=== PATIENT | male | born 1940 | race Caucasian/White ===

== ENCOUNTER 2017-09-06 11:33 | Inpatient (IN) | payer BC, MEDICARE ==
[2017-09-06] MEDS ORDERED: NS 0.9% 1000 ML* 1,000 ML IV SCH (12:00)
[2017-09-06 12:08] LABS: ABS Basophils 0 10^3/ul (0-0.2); ABS Eosinophils 0.2 10^3/ul (0-0.6); ABS Lymphocytes 1.2 10^3/ul (1.0-4.8); ABS Monocytes 0.5 10^3/ul (0-0.8); ABS Neutrophils 7.2 10^3/ul (1.5-7.7); ABS Nucleated RBC 0 10^3/ul; Eosinophil % 1.7 % (0-6); Hematocrit 38 % (42-52); Hemoglobin 12.8 g/dl (14.0-18.0); Mean Corpuscular HGB Conc 33 g/dl (31-36); Mean Corpuscular Hemoglobin 31 pg (27-31); Mean Corpuscular Volume 92 fL (80-94); Mean Platelet Volume 8 um3 (7.4-10.4); Nucleated Red Blood Cells % 0.1; Platelet Count 223 10^3/ul (150-450); Red Blood Count 4.17 10^6/ul (4.0-5.4); Red Cell Distribution Width 13 % (10.5-15); White Blood Count 9.1 10^3/ul (3.5-10.8)
[2017-09-06 12:17] LABS: INR 0.94 (0.77-1.02)
[2017-09-06 12:24] LABS: EGFR Non-African American 48.7 (>60)
--- NOTE | 2017-09-06 13:16 | RAD ---
INDICATION: Upper abdominal pain COMPARISON: None TECHNIQUE: An AP seated portable view obtained at 1310 hours is submitted. FINDINGS: Bones/Soft Tissues: There are no acute bony findings. Cardiomediastinal: The cardiomediastinal silhouette is normal. Lungs: There are no infiltrates. Pleura: There are no pleural effusions. Other: None IMPRESSION: NO ACTIVE DISEASE.
--- NOTE | 2017-09-06 13:16 | RAD ---
INDICATION: Upper abdominal pain COMPARISON: None TECHNIQUE: Noncontrast axial source images were obtained from the hemidiaphragms to the symphysis pubis. This examination was ordered using a renal stone protocol which is performed without oral or intravenous contrast and therefore has inherent limitations when used to evaluate other intra-abdominal or intrapelvic pathology. Consider conventional contrast enhanced imaging if clinically indicated. Lung bases: The lung bases are clear. Liver: The liver is normal in size. Noncontrast imaging shows no evidence of a hepatic mass or ductal dilatation. Gallbladder: There are multiple gallstones. Spleen: The spleen is normal in size. The noncontrast CT appearance is normal. Pancreas: Limited evaluation due to the noncontrast nature of the examination. No definitive abnormality. Adrenal glands: No masses are identified. Kidneys/Bladder: Bilateral nephrolithiasis with staghorn calculus in the right. No obstruction. Noncontrast imaging shows no a water density lower pole right renal lesion measuring 3.6 cm and most consistent with a renal cyst. The bladder is unremarkable.. Adenopathy: There is no evidence of intraperitoneal or retroperitoneal adenopathy. Evaluation is limited without oral contrast. Fluid collections: There are no free or localized fluid collections. Vessels: There are atherosclerotic changes of the aorta and iliac vessels. There is no focal aneurysm. The IVC appears normal Pelvic organs: The prostate and seminal vesicles appear normal GI tract: Evaluation of the bowel is limited without oral contrast. There is gastric bypass surgery. The upper GI tract is otherwise unremarkable. There is presumed cholecystectomy with clips in the right lower quadrant. There are scant diverticula of the colon. There are no obstructive findings There are no obstructive findings. The appendix is visualized and appears normal. Soft tissues: Skin induration anteriorly related to the patient's pannus. Osseous structures: Advanced spondylitic change of the thoracolumbar spine. IMPRESSION: 1. This is a limited examination performed without oral or intravenous contrast. 2. Cholelithiasis. 3. Bilateral nonobstructive nephrolithiasis with staghorn calculus on the right 4. Advanced atherosclerotic change. 5. Gastric bypass surgery.
[2017-09-06 13:20] LABS: Urine Appearance Cloudy; Urine Blood 3+ (Negative); Urine Color Amber; Urine Ketones Trace (Negative); Urine Protein 2+(100 mg/dL) (Negative); Urine Specific Gravity 1.019 (1.010-1.030); Urine Urobilinogen Negative (Negative)
[2017-09-06] MEDS ORDERED: Ondansetron INJ* 2 MG/ML VIAL IV PRN (16:17)
[2017-09-06] MEDS ORDERED: Morphine INJ* 4 MG/ML 1 ML SYRINGE (NEW SYRINGE VERSION) ONE (16:31)
[2017-09-06] MEDS: Morphine INJ* 4 MG/ML 1 ML SYRINGE (NEW SYRINGE VERSION) IV PRN ×2 (16:32→20:52)
[2017-09-06] MEDS: cefTRIAXone(*) 1 GM in NS 0.9% 50 ML* 50 ML IVPB SCH (17:52)
[2017-09-06] MEDS: Pantoprazole IV* 40 MG IV SCH (20:52)
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
--- NOTE | 2017-09-06 22:21 | ED ---
Kwasi Alex Stephanie, scribed for Terrance Dos Santos MD on 09/06/17 at 1232 . Abdominal Pain/Male - HPI Summary HPI Summary: The pt is a 77 y/o M presenting to the ED with c/o abd pain that began on at 11:47. The abd pain radiates to the chest, back and neck. Symptoms include black stools. The pt reports hx of gastric bypass in 2007. Pt has been taking hydrocodone for pain. The pt reports he has a BM every 3 days. - History of Current Complaint Chief Complaint: EDAbdPain Stated Complaint: ABD PAIN Time Seen by Provider: 09/06/17 11:40 Hx Obtained From: Patient, Family/Resident Care Coordinator - Onset/Duration: Gradual Onset, Lasting Weeks - 2, Still Present Timing: Constant Severity Currently: Severe Pain Intensity: 10 Pain Scale Used: 0-10 Numeric Location: Diffuse Radiates: Yes Radiates to: Back, Chest, Other - neck Aggravating Factor(s): Nothing Alleviating Factor(s): Nothing Associated Signs And Symptoms: Positive: Back Pain, Other - black stools - Allergies/Home Medications Allergies/Adverse Reactions: Allergies Allergy/AdvReac Type Severity Reaction Status Date / Time No Known Allergies Allergy Verified 09/06/17 11:51 Home Medications: Home Medications Aspirin EC Low Dose* [Ecotrin EC Low Dose 81 MG*] 81 mg PO DAILY 09/06/17 [ History Confirmed 09/06/17] Atorvastatin* [Lipitor*] 80 mg PO DAILY 09/06/17 [History Confirmed 09/06/17] Furosemide TAB* [Lasix TAB*] 20 mg PO DAILY PRN 09/06/17 [History Confirmed 10/21] Hydrocodone/Acetamin 10/325(NF [[place] 10/325 (NF)] 1 - 2 tab PO Q4H PRN MDD 4 tabs 09/06/17 [History Confirmed 09/06/17] Ibuprofen TAB* [Motrin TAB* 400 MG] 400 mg PO Q6H PRN 09/06/17 [History Confirmed 09/06/17] Pedi Multivit No.25/Folic Acid [Flintstones Complete] 1 chw PO DAILY 09/06/17 [ History Confirmed 09/06/17] Zolpidem TAB* [Ambien TAB*] 5 mg PO BEDTIME PRN 09/06/17 [History Confirmed 10/21] PMH/Surg Hx/FS Hx/Imm Hx Cardiovascular History: Denies: Hx Congestive Heart Failure EENT History: Denies: Hx Deafness - Surgical History Surgery Procedure, Year, and Place: gastric bypass in 2007 Infectious Disease History: No Infectious Disease History: Denies: Traveled Outside the [place] in Last 30 Days - Family History Known Family History: Positive: Diabetes - Social History Occupation: Retired Lives: With Family Alcohol Use: Rare Substance Use Type: Reports: None Smoking Status (MU): Unknown if Ever Smoked Review of Systems Negative: Fever Positive: Chest Pain Positive: Abdominal Pain Positive: other - black stool Positive: Other - back pain, neck pain All Other Systems Reviewed And Are Negative: Yes Physical Exam - Summary Physical Exam Summary: General: Moderately ill-appearing, mild pain distress Skin: warm, color reflects adequate perfusion, dry Head: normal Eyes: EOMI, MALAIKA ENT: normal Neck: supple, nontender Respiratory: CTA, breath sounds present Cardiovascular: RRR Abdomen: abdomen diffusely tender; worst tenderness in epigastrium Bowel: present, hyperactive bowel sounds Musculoskeletal: normal, strength/ROM intact Neurological: normal, sensory/motor intact, A&O x3 Psychological: affect/mood appropriate Rectal Exam: normal Triage Information Reviewed: Yes Vital Signs On Initial Exam: Initial Vitals Temp Pulse Resp BP Pulse Ox 98.6 F 70 23 139/58 97 09/06/17 11:47 09/06/17 11:47 09/06/17 11:47 09/06/17 11:47 09/06/17 11:47 Vital Signs Reviewed: Yes Diagnostics - Vital Signs Vital Signs Temp Pulse Resp BP Pulse Ox 09/06/17 12:01 66 24 139/60 95 09/06/17 12:00 63 27 95 09/06/17 11:48 73 96 09/06/17 11:47 98.6 F 70 23 139/58 97 - Laboratory Lab Results: Lab Results 09/06/17 09/06/17 09/06/17 Range/Units 12:00 12:00 12:00 WBC (3.5-10.8) 10^3/ul RBC (4.0-5.4) 10^6/ul Hgb (14.0-18.0) g/dl Hct (42-52) % MCV (80-94) fL MCH (27-31) pg MCHC (31-36) g/dl RDW (10.5-15) % Plt Count (150-450) 10^3/ul MPV (7.4-10.4) um3 Neut % (Auto) (38-83) % Lymph % (Auto) (25-47) % Gregg % (Auto) (0-7) % Eos % (Auto) (0-6) % Baso % (Auto) (0-2) % Absolute Neuts (auto) (1.5-7.7) 10^3/ul Absolute Lymphs (auto) (1.0-4.8) 10^3/ul Absolute Monos (auto) (0-0.8) 10^3/ul Absolute Eos (auto) (0-0.6) 10^3/ul Absolute Basos (auto) (0-0.2) 10^3/ul Absolute Nucleated RBC 10^3/ul Nucleated RBC % INR (Anticoag Therapy) 0.94 (0.77-1.02) APTT 40.8 H (26.0-36.3) seconds Sodium (133-145) mmol/L Potassium (3.5-5.0) mmol/L Chloride (101-111) mmol/L Carbon Dioxide (22-32) mmol/L Anion Gap (2-11) mmol/L BUN (6-24) mg/dL Creatinine (0.67-1.17) mg/dL Est GFR ( Amer) (>60) Est GFR (Non-Af Amer) (>60) BUN/Creatinine Ratio (8-20) Glucose (70-100) mg/dL Lactic Acid (0.5-2.0) mmol/L Calcium (8.6-10.3) mg/dL Magnesium (1.9-2.7) mg/dL Total Bilirubin (0.2-1.0) mg/dL AST (13-39) U/L ALT (7-52) U/L Alkaline Phosphatase (34-104) U/L Total Creatine Kinase (10-223) U/L CK-MB (CK-2) (0.6-6.3) ng/mL C-Reactive Protein (< 5.00) mg/L B-Natriuretic Peptide 58 ( - 100) pg/mL Total Protein (6.4-8.9) g/dL Albumin (3.2-5.2) g/dL Globulin (2-4) g/dL Albumin/Globulin Ratio (1-3) Lipase (11.0-82.0) U/L Blood Type O Positive Antibody Screen Pending 09/06/17 09/06/17 09/06/17 Range/Units 12:00 12:00 12:00 WBC 9.1 (3.5-10.8) 10^3/ul RBC 4.17 (4.0-5.4) 10^6/ul Hgb 12.8 L (14.0-18.0) g/dl Hct 38 L (42-52) % MCV 92 (80-94) fL MCH 31 (27-31) pg MCHC 33 (31-36) g/dl RDW 13 (10.5-15) % Plt Count 223 (150-450) 10^3/ul MPV 8 (7.4-10.4) um3 Neut % (Auto) 79.4 (38-83) % Lymph % (Auto) 13.0 L (25-47) % Gregg % (Auto) 5.5 (0-7) % Eos % (Auto) 1.7 (0-6) % Baso % (Auto) 0.4 (0-2) % Absolute Neuts (auto) 7.2 (1.5-7.7) 10^3/ul Absolute Lymphs (auto) 1.2 (1.0-4.8) 10^3/ul Absolute Monos (auto) 0.5 (0-0.8) 10^3/ul Absolute Eos (auto) 0.2 (0-0.6) 10^3/ul Absolute Basos (auto) 0 (0-0.2) 10^3/ul Absolute Nucleated RBC 0 10^3/ul Nucleated RBC % 0.1 INR (Anticoag Therapy) (0.77-1.02) APTT (26.0-36.3) seconds Sodium 137 (133-145) mmol/L Potassium 4.1 (3.5-5.0) mmol/L Chloride 108 (101-111) mmol/L Carbon Dioxide 16 L (22-32) mmol/L Anion Gap 13 H (2-11) mmol/L BUN 47 H (6-24) mg/dL Creatinine 1.41 H (0.67-1.17) mg/dL Est GFR ( Amer) 62.7 (>60) Est GFR (Non-Af Amer) 48.7 (>60) BUN/Creatinine Ratio 33.3 H (8-20) Glucose 122 H (70-100) mg/dL Lactic Acid 0.7 (0.5-2.0) mmol/L Calcium 9.6 (8.6-10.3) mg/dL Magnesium 1.8 L (1.9-2.7) mg/dL Total Bilirubin 0.30 (0.2-1.0) mg/dL AST 13 (13-39) U/L ALT 10 (7-52) U/L Alkaline Phosphatase 66 (34-104) U/L Total Creatine Kinase 26 (10-223) U/L CK-MB (CK-2) 2.1 (0.6-6.3) ng/mL C-Reactive Protein 33.32 H (< 5.00) mg/L B-Natriuretic Peptide ( - 100) pg/mL Total Protein 7.0 (6.4-8.9) g/dL Albumin 3.5 (3.2-5.2) g/dL Globulin 3.5 (2-4) g/dL Albumin/Globulin Ratio 1.0 (1-3) Lipase 138 H (11.0-82.0) U/L Blood Type Antibody Screen Result Diagrams: 09/06/17 12:00 09/06/17 12:00 Lab Statement: Any lab studies that have been ordered have been reviewed, and results considered in the medical decision making process. - Radiology CXR Xray Interpretation: No Acute Changes Radiology Interpretation Completed By: Radiologist - NO ACTIVE DISEASE. - CT Abdomen/Pelvis CT Interpretation: Positive (See Comments) CT Interpretation Completed By: Radiologist - 1. This is a limited examination performed without oral or intravenous contrast. 2. Cholelithiasis. 3. Bilateral nonobstructive nephrolithiasis with staghorn calculus on the right 4. Advanced atherosclerotic change. 5. Gastric bypass surgery. - EKG 12:12 Cardiac Rate: NL EKG Rhythm: Sinus Rhythm - [address] Segment: Normal Ectopy: None EKG Interpretation: Normal EKG Abdominal Pain Fem Course/Dx - Course Course Of Treatment: BP noted and advised to follow up with PCP. Medications reviewed. Allergies noted. DISCUSSED RESULTS WITH PATIENT AND FAMILY. ADMIT HOSPITALIST. - Diagnoses Provider Diagnoses: Elevated BP without diagnosis of hypertension, Upper abdominal pain, GI bleed Discharge - Discharge Plan Condition: Stable Disposition: ADMITTED TO [facility] documentation as recorded by the Kwasi barfield Stephanie accurately reflects the service I personally performed and the decisions made by me, Terrance Dos Santos MD.
[2017-09-07] MEDS: Morphine INJ* 4 MG/ML 1 ML SYRINGE (NEW SYRINGE VERSION) IV PRN (03:55)
[2017-09-07 05:21] LABS: ABS Basophils 0 10^3/ul (0-0.2); ABS Eosinophils 0.2 10^3/ul (0-0.6); ABS Lymphocytes 1.5 10^3/ul (1.0-4.8); ABS Monocytes 0.7 10^3/ul (0-0.8); ABS Nucleated RBC 0 10^3/ul; Eosinophil % 2.7 % (0-6); Hematocrit 32 % (42-52); Hemoglobin 10.8 g/dl (14.0-18.0); Lymphocyte % 20.5 % (25-47); Mean Corpuscular HGB Conc 34 g/dl (31-36); Mean Corpuscular Hemoglobin 31 pg (27-31); Mean Corpuscular Volume 92 fL (80-94); Mean Platelet Volume 9 um3 (7.4-10.4); Nucleated Red Blood Cells % 0; Platelet Count 182 10^3/ul (150-450); Red Cell Distribution Width 14 % (10.5-15); White Blood Count 7.5 10^3/ul (3.5-10.8)
[2017-09-07 05:37] LABS: EGFR Non-African American 65.6 (>60)
[2017-09-07] MEDS: Atorvastatin* 80 MG TAB PO SCH (09:19)
[2017-09-07] MEDS: Pantoprazole IV* 40 MG IV SCH ×2 (09:43→20:14)
--- NOTE | 2017-09-07 10:05 | CONS ---
CC: Dr. Shira Becerril* CONSULTATION REPORT: DATE OF CONSULT: 09/07/17. REQUESTING PHYSICIAN: Michaela Mckee NP. INDICATION: Heme-positive stool, anemia. NARRATIVE: Mr. Lim is a pleasant 77-year-old gentleman who has a history of gastric bypass in 2008, recent CVA in 2016, with some right-sided weakness, hyperlipidemia, who comes in with abdominal pain. He is a somewhat poor historian. The pain is better this morning. He states that it was located periumbilically, really with no radiation. He has been treating it with ibuprofen. He also takes aspirin every day. He denies any vomiting, but he does have some slight nausea. No heartburn. He states that her stools were black a couple of days ago. He also noted dark urine a couple of days ago. However, this morning he is feeling hungry and is feeling better this morning. He was found to have a urinary tract infection and is being treated for that. MEDICATIONS UPON ADMISSION: Include: 1. Aspirin. 2. Lasix. 3. Hydrocodone. 4. Ibuprofen. 5. Zolpidem. 6. Atorvastatin. ALLERGIES: None. FAMILY HISTORY: No GI malignancies in the family. SOCIAL HISTORY: He quit tobacco. Rarely drinks alcohol. REVIEW OF SYSTEMS: Twelve systems were reviewed and other than that mentioned in the HPI were unremarkable. PHYSICAL EXAM: Vital Signs: Temperature is 98.2, blood pressure is 130/51, pulse is 60, respiratory rate of 23, O2 sat at 95%. General: Chronically ill- appearing male, lying flat in bed, alert, oriented, pleasant, and fluent, easily awoken. HEENT: Dentition poor. Mucous membranes are moist without lesions, ulcers, or exudate. Neck: Supple. Trachea is midline. Heart: Regular rate and rhythm. Lungs: Clear to auscultation. Abdomen: Obese, positive bowel sounds. Soft, tender in the epigastrium. No rebound, no guarding , no masses. Skin: Warm and dry. LABORATORY DATA: Of note, his hemoglobin has gone from 12.8 to 10.8, white count is 7.5, platelets of 182, INR is 0.94. Chemistries reveal BUN from 47 down to 31. Creatinine is 1.41 down to 1.09. C-reactive protein is 33, lipase is 138 down to 89. He does have a CT abdomen and pelvis from yesterday in the emergency room which was a non-contrasted CT; reveals cholelithiasis, nephrolithiasis with a staghorn calculus in the right kidney, gastric bypass. ASSESSMENT AND PLAN: This is a pleasant 77-year-old gentleman with epigastric pain, heme-positive stool, dark stool noted a few days ago, elevated BUN and takes both aspirin and ibuprofen. I agree that an EGD will be useful. We will make arrangements for his endoscopy later on today. He should remain on a PPI. [id number]/[facility] #: [id number] MTDD
--- NOTE | 2017-09-07 13:12 | PN ---
Subjective Date of Service: 09/07/17 Interval History: Mr. Lim states that he is feeling much better today. He denies abdominal pain. He has had no BM since admission. His urine is no longer brown or bloody but is now clear yellow. Objective Active Medications: Atorvastatin Calcium (Lipitor*) 80 mg PO DAILY [facility] Lactated Ringer's (Lactated Ringers 1000 Ml Bag*) 1,000 mls @ 125 mls/hr IV PER RATE JAIR Ceftriaxone Sodium 1 gm/ (Sodium Chloride) 50 mls @ 200 mls/hr IVPB Q24H JAIR Morphine Sulfate (Morphine Inj (Syringe)*) 4 mg IV Q4H PRN Ondansetron HCl (Zofran Inj*) 4 mg IV Q6H PRN Pantoprazole Sodium (Protonix Iv*) 40 mg IV BID JAIR Vital Signs: Temp Pulse Resp BP Pulse Ox 97.3 F 51 16 128/47 97 09/07/17 11:36 09/07/17 11:36 09/07/17 11:36 09/07/17 11:36 09/07/17 11:36 Oxygen Devices in Use Now: None Appearance: Male sitting up in chair in NAD Eyes: No Scleral Icterus Ears/Nose/Mouth/Throat: Mucous Membranes Moist Neck: NL Appearance and Movements; NL JVP, Trachea Midline Respiratory: Symmetrical Chest Expansion and Respiratory Effort, Clear to Auscultation Cardiovascular: NL Sounds; No Murmurs; No JVD, No Edema Abdominal: NL Sounds; No Tenderness; No Distention Lymphatic: No Cervical Adenopathy Extremities: No Edema Skin: No Rash or Ulcers Neurological: Alert and Oriented x 3, NL Muscle Strength and Tone Nutrition: Taking PO's Result Diagrams: 09/07/17 04:51 09/07/17 04:51 Additional Lab and Data: . Assess/Plan/Problems-Billing Assessment: Mr. Lim is a 77 yo M with a PMH of gastric bypass 10 years ago who was admitted on 09/06/17 with suspected upper GI bleed, elevated lipase, and UTI with reported passage of kidney stone at home. - Patient Problems (1) Upper GI bleed Comment: - Hgb down to 10 this AM. GUIAC positive. - EGD with large gastric ulcer at bypass anastomosis. - Plan for protonix BID. (2) UTI (urinary tract infection) Comment: - Report of hematuria and passage of kidney stone at home. - Large staghorn calculus in R kidney, no hydronephrosis on CT abd. - Continue ceftriaxone. (3) Elevated lipase Comment: - Lipase falling, 113 on arrival. - No clear evidence of pancreatitis, abd exam variable, pain not associated with oral intake. CT abd without evidence of pancreatitis. - Appreciate GI consult, plan for clear liquids and pain medications prn. (4) DVT prophylaxis Comment: - SCDs. (5) Full code status Comment: Status and Disposition: Inpatient. Anticipate discharge to home when medically stable.
[2017-09-07] MEDS ORDERED: fentaNYL* 50 MCG/ML 2 ML VIAL (100 MCG VIAL) ONE (14:50)
[2017-09-07] MEDS ORDERED: Midazolam* 1 MG/ML 10 ML VIAL (10 MG) ONE (14:50)
[2017-09-07] MEDS: cefTRIAXone(*) 1 GM in NS 0.9% 50 ML* 50 ML IVPB SCH (16:19)
[2017-09-08] MEDS: Morphine INJ* 4 MG/ML 1 ML SYRINGE (NEW SYRINGE VERSION) IV PRN (05:51)
[2017-09-08 08:03] VITALS: BP 149/49
[2017-09-08] MEDS: Atorvastatin* 80 MG TAB PO SCH (09:18)
[2017-09-08] MEDS: Pantoprazole IV* 40 MG IV SCH (09:18)
--- NOTE | 2017-09-08 10:04 | PN ---
Subjective Date of Service: 09/08/17 Interval History: Mr. Lim states that he is doing quite well and is eager for discharge. He denies abdominal pain and is tolerating oral intake well. Objective Active Medications: Atorvastatin Calcium (Lipitor*) 80 mg PO DAILY [facility] Lactated Ringer's (Lactated Ringers 1000 Ml Bag*) 1,000 mls @ 125 mls/hr IV PER RATE [facility] Ceftriaxone Sodium 1 gm/ (Sodium Chloride) 50 mls @ 200 mls/hr IVPB Q24H JAIR Morphine Sulfate (Morphine Inj (Syringe)*) 4 mg IV Q4H PRN Ondansetron HCl (Zofran Inj*) 4 mg IV Q6H PRN Pantoprazole Sodium (Protonix Iv*) 40 mg IV BID [facility] Vital Signs: Temp Pulse Resp BP Pulse Ox 98.3 F 51 18 149/49 97 09/08/17 07:23 09/08/17 07:23 09/08/17 08:00 09/08/17 07:23 09/08/17 07:23 Oxygen Devices in Use Now: None Appearance: Male sitting up in bed in NAD Eyes: No Scleral Icterus Ears/Nose/Mouth/Throat: Mucous Membranes Moist Neck: Trachea Midline Respiratory: Symmetrical Chest Expansion and Respiratory Effort, Clear to Auscultation Cardiovascular: NL Sounds; No Murmurs; No JVD, No Edema Abdominal: NL Sounds; No Tenderness; No Distention Lymphatic: No Cervical Adenopathy Extremities: No Edema Skin: No Rash or Ulcers Neurological: Alert and Oriented x 3, NL Muscle Strength and Tone Nutrition: Taking PO's Result Diagrams: 09/07/17 04:51 09/07/17 04:51 Additional Lab and Data: . Microbiology and Other Data: . Assess/Plan/Problems-Billing Assessment: Mr. Lim is a 77 yo M with a PMH of gastric bypass 10 years ago who was admitted on 09/06/17 with suspected upper GI bleed, elevated lipase, and UTI with reported passage of kidney stone at home. - Patient Problems (1) Upper GI bleed Comment: - Hgb stable. - EGD with large gastric ulcer at bypass anastomosis. - Plan for omeprazole BID. - Patient advised to avoid NSAIDs. - To Follow up outpatient with GI in 6 weeks. (2) UTI (urinary tract infection) Comment: - Urine with aerococcus species. - Plan to treat with amoxicillin (3) Elevated lipase Comment: - Resolved. (4) DVT prophylaxis Comment: - SCDs. (5) Full code status Comment: Status and Disposition: Inpatient. Discharge to home.
--- NOTE | 2017-09-08 15:00 | PRO ---
DATE OF PROCEDURE: 09/07/2017 - ROOM #[id number] PROCEDURE PERFORMED: EGD. INDICATION: Abdominal pain, anemia. REFERRING PHYSICIAN: Michaela Mckee NP. MEDICATIONS GIVEN: 25 mcg IV Fentanyl and 3 mg IV Versed. PROCEDURE: After the EGD procedure, including the risks, benefits, and alternatives, not limited to perforation, surgery and/or were explained to Mr. Lim, written consent was then obtained. IV medication was given and a bite- block was placed between the teeth. An Olympus gastroscope was then inserted into the patient's mouth, advanced down the esophagus, into the stomach and into the distal duodenum. In the esophagus at the GE junction, the Z-line was intact. No erosive esophagitis, stricture, or ring was seen. The scope was advanced into the gastric pouch. He does have a history of gastric bypass surgery. The pouch was very pale. The scope was advanced through the gastrojejunal junction into the jejunum site. There was an extremely large cleaned based ulcer there. I did not try and advance by it due to its large size. I then withdrew the scope into the gastric pouch where biopsy was for NEAL. The scope was withdrawn from the patient. He tolerated the procedure well and was returned to his hospital room in stable condition. IMPRESSION: 1. Complete upper endoscopy into the jejunum with biopsies. 2. Gastrojejunal ulcer. 3. His ulcer is likely secondary to his nonsteroidals. He needs to stop all of them, use a PPI, and follow-up with me as needed. [id number]/[facility] #: [id number] DAMIÁN
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
== END 2017-09-08 11:05 | disposition home or self-care (01) | DRG 381 ==
LOC: ED 11:33 → SSU 16:07
PROVIDERS: ADMIT Internal Medicine; ATTEND Internal Medicine
PROC: 0DB68ZX Excision of Stomach, Via Natural or Artificial Opening Endoscopic, Diagnostic (ICD-10-PCS; principal; 2017-09-07)
DX: K28.3 Acute gastrojejunal ulcer without hemorrhage or perforation (principal); N39.0 Urinary tract infection, site not specified; N17.9 Acute kidney failure, unspecified; E87.2 Acidosis; I69.351 Hemiplegia and hemiparesis following cerebral infarction affecting right dominant side; E86.0 Dehydration; B96.89 Other specified bacterial agents as the cause of diseases classified elsewhere; E78.5 Hyperlipidemia, unspecified; N20.0 Calculus of kidney; I69.322 Dysarthria following cerebral infarction; Z98.84 Bariatric surgery status; Z79.1 Long term (current) use of non-steroidal anti-inflammatories (NSAID); Z87.891 Personal history of nicotine dependence; Z79.82 Long term (current) use of aspirin; Z79.899 Other long term (current) drug therapy
CPT/HCPCS: 36415; 71045; 74176; 80053; 80320; 80329; 81003; 81015; 82140; 82270; 82550; 82553; 82607; 82728; 82746; 83540; 83550; 83605; 83690; 83735; 83880; 85025; 85610; 85730; 86140; 86850; 86900; 86901; 87040; 87077; 87086; 93005; 99156; 99157; 99284; A9270-GY; G0480; J0696; J2250; J2270; J3010

== ENCOUNTER 2018-06-30 12:51 | Emergency (ER) | payer MEDICARE ==
--- OUTSIDE RECORDS SUMMARY | 2018-06-30 13:12 | XMS REPORT | Continuity of Care Document ---
:1940 External Reference #:[id number] Author Name Shira Becerril M.D. Address [address] [facility] [address] [place] [address] Care Team Providers Name Role Phone Shira Becerril MD Care Team Information Community Advocate Unavailable Payers Type Date Identification Numbers Payment Provider Subscriber Effective: Policy Number: [id number] /BS Medicare Blue Zach Joseph 2017 Ppo PayID: [id number] [address] [address] [place] [address] Advance Directives Description No Information Available Problems Date Description Provider Status Onset: 05/14/2015 Type II diabetes mellitus uncontrolled Shira Becerril M.D. Active Onset: 05/14/2015 Asthma without status asthmaticus Shira Becerril M.D. Active Onset: 05/14/2015 Allergic rhinitis Shira Becerril M.D. Active Onset: 05/14/2015 Atopic dermatitis Shira Becerril M.D. Active Onset: 05/14/2015 Morbid obesity Shira Becerril M.D. Active Onset: 05/14/2015 Bariatric operative procedure Shira Becerril M.D. Active Onset: 05/14/2015 Knee pain Shira Becerril M.D. Active Onset: 05/14/2015 Pain in limb Shira Becerril M.D. Active Onset: 05/14/2015 Osteoarthritis Shira Becerril M.D. Active Onset: 05/14/2015 Abnormal gait Shira Becerril M.D. Active Onset: 05/14/2015 Constipation Shira Becerril M.D. Active Onset: 05/14/2015 Insomnia Shira Becerril M.D. Active Onset: 05/14/2015 Hearing loss Shira Becerril M.D. Active Onset: 08/07/2015 Abnormal gait Shira Becerril M.D. Active Family History Date Family Member(s) Problem(s) Comments Father due to Age Unknown () - PASSED IN 1943 Father due to Diabetes () Mother due to Auto Accident () - 1958- AGE UNKNOWN First Son 39 First Son No Current Problems First Daughter 49 First Daughter No Current Problems Second Daughter 43 Second Daughter No Current Problems First Brother due to 6 Passed () - ONE SUICIDE, ONE LIVER DISEASE, ONE FROM DIABETES, SISTER OLD AGE, AND ANOTHER LUNG CANCER, ANOTHER DIABETES Second Brother 77 Second Brother Unknown First Sister due to Natural Causes () Social History Type Date Description Comments Sex Unknown Marital Status Legal Status: Tobacco Use Start: Unknown Light tobacco smoker (10 or fewer cig/day) Smoking Status Reviewed: 05/24/18 Light tobacco smoker (10 or fewer cig/day) Tobacco Use Start: Unknown Current Smokeless Tobacco User, Uses Once Daily ETOH Use Rarely consumes alcohol Tobacco Use Start: Unknown Patient is a current 5 OR 6 CIGARS A DAY, NO smoker, smokes every day CIGARETTES Allergies, Adverse Reactions, Alerts Date Description Reaction Status Severity Comments 05/14/2015 Adhesives Active Medications Medication Date Status Form Strength Qnty SIG Indications Ordering Provider Hydrocodone-Ac 03/25/20 Active Tablets 10-325mg 60tabs 1 tab by G81.91 Jone etaminophen 18 mouth Modestomagraham MVinicius, twice a M.D. day as needed M79.606 M25.569 Acetaminophen 02/24/2018 Active Tablets 500mg 180tabs 2 tab by M15.9 Jone, mouth three Ahmad M., times a day M.D. Omeprazole 09/22/[address] 20mg 180caps Take 1 K25.7 Jone, Capsule By Shira Rodriguez, Mouth Twice M.D. Daily Nebulizer 08/19/2017 Active Device 1units use as R06.02 Jone, directed Shira Rodriguez M.D. J45.909 Nebulizer 08/19/2017 Active Kit 3units use with R06.02 Jone, Kit/Tubing/Mouthpiece nebulizer Ahmad M., every 4 hours M.D. as needed J45.909 Ambien 08/19/2017 Active Tablets 5mg 30tabs 1 tab by mouth E11.65 Jone , Ahmad every night MJasper Colvin Back Brace 05/22/2017 Active use as directed G81.91 Jone Ahmad for back pain Jasper Rodriguez m54,5,g81.91,m15 .9 M15.9 M54.5 Furosemide 01/25/2016 Active Tablets 20mg 90tabs 1 tab by R60.0 Jone, mouth every Ahmad M., day as M.D. needed Albuterol 12/28/2015 Active Nebulizer (2.5mg/ 375ml use with J45.909 Jone, Sulfate 3ML) nebulizer q4 Ahmad M., 0.083% hours as M.D. needed for cough/sob R06.02 Walker With 10/04/2015 Active 1units dx: G81.91 Jone, Large Wheels r26.89,g81.91 Ahmad M., With Seat And M.D. Basket Atorvastatin 08/17/2015 Active Tablets 80mg 90tabs 1 tab by mouth I63.9 Jone, Calcium every day Shira Rodriguez M.D. E78.2 Miralax 05/14/2015 Active Powder 3350NF 1020gm 2 caps by K59.00 Jone, mouth Ahmad M., every day M.D. as needed Proventil HFA 05/14/2015 Active Aerosol 108(90Base) 13.4gm 2 unit by R06.02 Jone, mcg/Act mouth Ahmad M., every 4 M.D. hours as needed J45.909 Daily-James/Iron/Beta-Carotene Active Tablets Z98.84 Unknown Cipro 06/08/2018 - Hx Tablets 50 20 1 tab by E11.65 Jone, 06/18/2018 0m ta mouth Ahmad g bs twice a M., MViniciusD. day Cipro 05/25/2018 - Hx Tablets 50 14 1 tab by N39.0 [facility], 05/31/2018 0m ta mouth Ahmad g bs twice a M., M.D. day Hydrocodone-Acetaminophen 02/24/2018 - Hx Tablets 5- 60 1 tab by M15.9 [facility], 03/25/2018 32 ta mouth Ahmad 5m bs three M., M.D. g times a day as Needed 2 Hours After Tylenol Max Tylenol ALL Sources No More Than 4 G M79.606 M25.569 Cipro 05/07/2017 - Hx Tablets 500mg 20tabs 1 tab by E11.65 [facility], 05/17/2017 mouth Ahmad M., twice a M.D. day Trazodone HCL 01/16/2017 - Hx Tablets 100mg 90tabs 1 tab by E11.65 [facility], 08/19/2017 mouth Ahmad M., every M.D. night Hydroxyzine HCL 01/02/2017 - Hx Tablets 10mg 30tabs 1 tab by L50.9 [facility], 05/06/2017 mouth Ahmad M., every M.D. night as needed Hydrocodone-Acet 12/19/2016 - Hx Tablets 10-325mg 60tabs 1-2 tab by M15.9 [facility], aminophen 02/24/2018 mouth Ahmad M., every 4 M.D. hours as needed M79.606 M25.569 Temazepam 12/19/2016 - Hx Capsules 15mg 14caps 1 cap by E11.65 [facility], 12/19/2016 mouth Ahmad M., every M.D. night Ativan 12/19/2016 - Hx Tablets 1mg 15tabs 1 tab by G47.00 [facility], 01/16/2017 mouth Ahmad M., every M.D. night as needed Cholestyramine 11/20/2016 - Hx Powder 4GM/Dose 378gm 1 scoop by K58.0 [facility], 05/06/2017 mouth Ahmad M., every day M.D. as needed Amoxicillin 09/19/2016 - Hx Tablets 500mg 40tabs 2 by mouth D48.5 [facility] , 09/29/2016 twice a Ahmad M., day M.D. Ativan 09/27/2015 - Hx Tablets 1mg 30tabs 1 tab by E11.65 Jone, 12/19/2016 mouth Shira Montalvo., every M.D. night as needed Mucinex 09/27/2015 - Hx Tablets ER 600mg 60tabs 1 tab by R09.81 Jone, 05/06/2017 12HR mouth Shira M., twice a M.D. day as needed Ambien 09/04/2015 - Hx Tablets 10mg 30tabs 1 tab by G47.00 Jone, 09/27/2015 mouth Modestomad M., every M.D. night as needed Ramipril 08/17/2015 - Hx Capsules 2.5mg 90caps 1 by mouth E11.65 Jone, 05/06/2017 every day Shira Rodriguez M.D. I63.9 I10 No Active 05/14/2015 - Hx Unknown Medications 05/14/2015 Hydrocodone-Aceta 05/14/2015 - Hx Tablets 7.5-3 120ta 1-2 tab by R10.8 Shira Becerril minophen 12/19/2016 25mg bs mouth every 4 M., M.D. 4 hours as needed Cephalexin - Hx Capsules 500mg Unknown 05/06/2015 Cephalexin - Hx Capsules 500mg Unknown 05/06/2015 Ramipril - Hx Capsules 2.5mg Unknown 05/06/2015 Ramipril - Hx Capsules 2.5mg Unknown 05/06/2015 Albuterol Sulfate - Hx Nebulizer (2.5m Unknown 05/06/2015 g/3ML ) 0.083 % Albuterol Sulfate - Hx Nebulizer (2.5m Unknown 05/06/2015 g/3ML ) 0.083 % Aspirin Ec Low - Hx Tablets DR 81mg I63.9 Unknown Dose 09/22/2017 E11.65 G81.91 Atorvastatin - Hx Tablets 80mg Unknown Calcium 08/17/2015 Nortriptyline HCL - Hx Capsules 10mg 30caps 1 cap by M79.6 Shira Becerril 07/06/2016 mouth David Rodriguez M.D. every day M15.9 Q-Pap - 07/06/2016 Hx Tablets 325mg E11.65 Unknown I63.9 E78.2 Hydrocodone-Acetaminophen - Hx Tablets 7.5-325mg Unknown 08/06/2015 Polyethylene Glycol 3350 - Hx Powder 3350NF I63.9 Unknown 07/06/2016 K59.00 Proair HFA - Hx Aerosol 108(90Base) Unknown 08/06/2015 mcg/Act Cephalexin - Hx Capsules 500mg Unknown 08/06/2015 Ramipril - Hx Capsules 2.5mg Unknown 08/17/2015 Albuterol Sulfate - Hx Nebulizer (2.5mg/3ML) 0.083% J45.909 Unknown 12/28/2015 R06.02 D48.5 Medications Administered in Office Medication Date Status Form Strength Qnty SIG Indications Ordering Provider Admin Of Administered Injection Jone, Pneumovax 015 Shira Rodriguez M.D. Immunizations CPT Code Status Date Vaccine Reaction Lot # Q2038 Given 04/22/2018 Flu Vaccine 3+Yrs Old(Fluzone) \\ [id number] Q2038 Given 02/26/2017 Flu Vaccine 3+Yrs Old(Fluzone) [id number] Q2038 Given 03/25/2016 Flu Vaccine 3+Yrs Old(Fluzone) 92220 Given 03/25/2016 Flu Vaccine [id number] Q2038 Given 05/14/2015 Flu Vaccine 3+Yrs Old(Fluzone) 88453 Given 05/14/2015 Pneumovax [id number] 40466 Given 05/14/2015 Flu Vaccine [id number] Vital Signs Date Vital Result Comment 06/24/2018 1:04pm BP Systolic 126 mmHg BP Diastolic 70 mmHg Height 64 inches 5'4" Weight 221.00 lb BMI (Body Mass Index) 37.9 kg/m2 Heart Rate 59 /min Respiratory Rate 16 /min 05/25/2018 1:36pm BP Systolic 130 mmHg BP Diastolic 72 mmHg Height 64 inches 5'4" Weight 220.00 lb BMI (Body Mass Index) 37.8 kg/m2 Heart Rate 67 /min Respiratory Rate 14 /min 04/22/2018 1:03pm BP Systolic 142 mmHg BP Diastolic 74 mmHg Height 64 inches 5'4" Weight 216.00 lb BMI (Body Mass Index) 37.1 kg/m2 Heart Rate 65 /min Respiratory Rate 14 /min 03/25/2018 12:52pm BP Systolic 142 mmHg BP Diastolic 70 mmHg Height 64 inches 5'4" Weight 221.00 lb BMI (Body Mass Index) 37.9 kg/m2 Heart Rate 58 /min Respiratory Rate 16 /min 02/24/2018 1:32pm BP Systolic 120 mmHg BP Diastolic 80 mmHg Height 64 inches 5'4" Weight 244.00 lb BMI (Body Mass Index) 41.9 kg/m2 Heart Rate 58 /min Respiratory Rate 14 /min 01/25/2018 11:17am BP Systolic 132 mmHg BP Diastolic 70 mmHg Height 64 inches 5'4" Weight 227.00 lb BMI (Body Mass Index) 39.0 kg/m2 Heart Rate 54 /min Respiratory Rate 14 /min 12/24/2017 1:57pm BP Systolic 124 mmHg BP Diastolic 68 mmHg Height 64 inches 5'4" Weight 217.00 lb BMI (Body Mass Index) 37.2 kg/m2 Heart Rate 67 /min Respiratory Rate 16 /min 11/26/2017 12:58pm BP Systolic 132 mmHg BP Diastolic 60 mmHg Height 64 inches 5'4" Weight 224.00 lb BMI (Body Mass Index) 38.4 kg/m2 Heart Rate 57 /min Respiratory Rate 18 /min 10/27/2017 1:06pm BP Systolic 130 mmHg BP Diastolic 60 mmHg Height 64 inches 5'4" Weight 224.00 lb BMI (Body Mass Index) 38.4 kg/m2 Heart Rate 69 /min Respiratory Rate 18 /min 09/22/2017 1:34pm BP Systolic 124 mmHg BP Diastolic 62 mmHg Height 64 inches 5'4" Weight 217.00 lb BMI (Body Mass Index) 37.2 kg/m2 Heart Rate 61 /min Respiratory Rate 18 /min 08/19/2017 2:10pm BP Systolic 130 mmHg BP Diastolic 64 mmHg Height 64 inches 5'4" Weight 216.00 lb BMI (Body Mass Index) 37.1 kg/m2 Heart Rate 82 /min Respiratory Rate 18 /min 06/04/2017 1:38pm BP Systolic 138 mmHg BP Diastolic 68 mmHg Height 64 inches 5'4" Weight 228.00 lb BMI (Body Mass Index) 39.1 kg/m2 Heart Rate 66 /min Respiratory Rate 16 /min 05/21/2017 1:34pm BP Systolic 128 mmHg BP Diastolic 64 mmHg Height 64 inches 5'4" Weight 235.00 lb BMI (Body Mass Index) 40.3 kg/m2 Heart Rate 79 /min Respiratory Rate 16 /min 05/07/2017 1:18pm BP Systolic 134 mmHg BP Diastolic 78 mmHg Height 64 inches 5'4" Weight 236.00 lb BMI (Body Mass Index) 40.5 kg/m2 Heart Rate 82 /min Respiratory Rate 16 /min 03/12/2017 1:25pm BP Systolic 124 mmHg BP Diastolic 70 mmHg Height 64 inches 5'4" Weight 260.00 lb BMI (Body Mass Index) 44.6 kg/m2 Heart Rate 71 /min Respiratory Rate 18 /min 02/26/2017 1:34pm BP Systolic 136 mmHg BP Diastolic 66 mmHg Height 64 inches 5'4" Weight 262.00 lb BMI (Body Mass Index) 45.0 kg/m2 Heart Rate 53 /min Respiratory Rate 16 /min 02/12/2017 1:54pm BP Systolic 108 mmHg BP Diastolic 62 mmHg Height 64 inches 5'4" Weight 260.00 lb BMI (Body Mass Index) 44.6 kg/m2 Heart Rate 79 /min Respiratory Rate 16 /min 01/29/2017 2:12pm BP Systolic 140 mmHg BP Diastolic 70 mmHg Height 64 inches 5'4" Weight 266.00 lb BMI (Body Mass Index) 45.7 kg/m2 Heart Rate 68 /min Respiratory Rate 16 /min 01/16/2017 1:52pm BP Systolic 138 mmHg BP Diastolic 60 mmHg Height 64 inches 5'4" Weight 264.00 lb BMI (Body Mass Index) 45.3 kg/m2 Heart Rate 58 /min Respiratory Rate 16 /min 01/02/2017 1:50pm BP Systolic 132 mmHg BP Diastolic 72 mmHg Height 64 inches 5'4" Weight 272.00 lb BMI (Body Mass Index) 46.7 kg/m2 Heart Rate 78 /min Respiratory Rate 16 /min 12/19/2016 1:56pm BP Systolic 122 mmHg BP Diastolic 60 mmHg Height 64 inches 5'4" Weight 270.00 lb BMI (Body Mass Index) 46.3 kg/m2 Heart Rate 99 /min Respiratory Rate 16 /min 11/20/2016 11:26am BP Systolic 134 mmHg BP Diastolic 74 mmHg Height 64 inches 5'4" Weight 380.00 lb BMI (Body Mass Index) 65.2 kg/m2 Heart Rate 68 /min Respiratory Rate 16 /min 10/21/2016 1:23pm BP Systolic 148 mmHg BP Diastolic 78 mmHg Height 64 inches 5'4" Weight 281.00 lb BMI (Body Mass Index) 48.2 kg/m2 Heart Rate 75 /min Respiratory Rate 16 /min 09/19/2016 11:36am BP Systolic 148 mmHg BP Diastolic 78 mmHg Height 64 inches 5'4" Weight 275.00 lb BMI (Body Mass Index) 47.2 kg/m2 Heart Rate 79 /min Respiratory Rate 16 /min 08/22/2016 1:26pm BP Systolic 142 mmHg BP Diastolic 68 mmHg Height 64 inches 5'4" Weight 268.00 lb BMI (Body Mass Index) 46.0 kg/m2 Heart Rate 78 /min Respiratory Rate 18 /min 07/24/2016 1:24pm BP Systolic 132 mmHg BP Diastolic 68 mmHg Height 64 inches 5'4" Weight 273.00 lb BMI (Body Mass Index) 46.9 kg/m2 Heart Rate 59 /min Respiratory Rate 18 /min 06/23/2016 11:02am BP Systolic 138 mmHg BP Diastolic 72 mmHg Height 64 inches 5'4" Weight 268.00 lb BMI (Body Mass Index) 46.0 kg/m2 Heart Rate 67 /min Respiratory Rate 18 /min 05/23/2016 1:30pm BP Systolic 132 mmHg BP Diastolic 72 mmHg Height 64 inches 5'4" Weight 269.00 lb BMI (Body Mass Index) 46.2 kg/m2 Heart Rate 68 /min Respiratory Rate 16 /min 04/24/2016 11:04am BP Systolic 136 mmHg BP Diastolic 74 mmHg Height 64 inches 5'4" Weight 266.00 lb BMI (Body Mass Index) 45.7 kg/m2 Heart Rate 67 /min Respiratory Rate 22 /min 03/25/2016 10:59am BP Systolic 144 mmHg BP Diastolic 72 mmHg Height 64 inches 5'4" Weight 268.00 lb BMI (Body Mass Index) 46.0 kg/m2 Heart Rate 84 /min Respiratory Rate 20 /min 02/22/2016 10:50am BP Systolic 130 mmHg BP Diastolic 72 mmHg Height 64 inches 5'4" Weight 270.00 lb BMI (Body Mass Index) 46.3 kg/m2 Heart Rate 68 /min Respiratory Rate 20 /min 01/25/2016 10:55am BP Systolic 130 mmHg BP Diastolic 74 mmHg Height 64 inches 5'4" Weight 265.00 lb BMI (Body Mass Index) 45.5 kg/m2 Heart Rate 66 /min Respiratory Rate 18 /min 12/28/2015 11:18am BP Systolic 134 mmHg BP Diastolic 84 mmHg Height 64 inches 5'4" Weight 263.00 lb BMI (Body Mass Index) 45.1 kg/m2 Heart Rate 76 /min Respiratory Rate 20 /min 11/27/2015 2:02pm BP Systolic 130 mmHg BP Diastolic 74 mmHg Height 64 inches 5'4" Weight 262.00 lb BMI (Body Mass Index) 45.0 kg/m2 Heart Rate 68 /min Respiratory Rate 16 /min 10/30/2015 1:52pm BP Systolic 117 mmHg BP Diastolic 63 mmHg Height 64 inches 5'4" Weight 254.00 lb BMI (Body Mass Index) 43.6 kg/m2 Heart Rate 65 /min Respiratory Rate 18 /min 10/04/2015 11:24am BP Systolic 151 mmHg BP Diastolic 65 mmHg Height 64 inches 5'4" Weight 256.00 lb BMI (Body Mass Index) 43.9 kg/m2 Heart Rate 63 /min Respiratory Rate 18 /min 09/27/2015 9:37am BP Systolic 140 mmHg BP Diastolic 68 mmHg Height 64 inches 5'4" Weight 256.00 lb BMI (Body Mass Index) 43.9 kg/m2 Heart Rate 68 /min Body Temperature 97.0 F Respiratory Rate 18 /min 09/04/2015 1:36pm BP Systolic 122 mmHg BP Diastolic 77 mmHg Height 64 inches 5'4" Weight 259.00 lb BMI (Body Mass Index) 44.5 kg/m2 Heart Rate 87 /min Respiratory Rate 20 /min 08/07/2015 1:27pm BP Systolic 178 mmHg BP Diastolic 77 mmHg Height 64 inches 5'4" Weight 267.00 lb BMI (Body Mass Index) 45.8 kg/m2 Heart Rate 75 /min Respiratory Rate 18 /min 06/25/2015 10:10am BP Systolic 144 mmHg BP Diastolic 64 mmHg Height 64 inches 5'4" Heart Rate 61 /min Body Temperature 97.0 F Respiratory Rate 18 /min 06/07/2015 1:41pm BP Systolic 193 mmHg BP Diastolic 74 mmHg Height 64 inches 5'4" Weight 283.00 lb BMI (Body Mass Index) 48.6 kg/m2 Heart Rate 57 /min Respiratory Rate 18 /min 05/29/2015 3:37pm BP Systolic 148 mmHg BP Diastolic 62 mmHg Height 64 inches 5'4" Weight 285.00 lb BMI (Body Mass Index) 48.9 kg/m2 Heart Rate 57 /min Respiratory Rate 18 /min 05/14/2015 2:18pm BP Systolic 165 mmHg BP Diastolic 67 mmHg Height 64 inches 5'4" Weight 282.00 lb BMI (Body Mass Index) 48.4 kg/m2 Heart Rate 64 /min Body Temperature 96.0 F Respiratory Rate 20 /min Results Test Date Facility Test Result H/L Range Note Ethyl [facility] Ethyl Positive Abnormal 500 1, 2 Glucuronide 8 Glucuronide >2000 I <SEE NOTE> ng/mL PDF SEE IMAGE Laboratory test 02/24/2018 [facility] Cocaine Panel By Negative ng/mL N 50 3 finding LC/MS/MS Tramadol Negative ng/mL N 5 4 [id number] Negative ng/mL N 5 5 Gabapentin Negative ng/mL N 100 6 Zolpidem 22 Positive Cons <SEE NOTE> ng/mL N 10 7 Amphetamine Panel By 02/24/2018 [facility] Amphetamine Negative ng/mL N 50 LC/MS/MS Methamphetamine Negative ng/mL N 50 Mdma (Ecstasy) Negative ng/mL N 50 Mda Negative ng/ml N 50 Mdea Negative ng/mL N 50 8 Specimen Validity 02/24/2018 [facility] Creatinine, Urine 84 mg/ dL N >20 Panel Color BROWN Abnormal Yellow pH >9.0 Abnormal 5.0-8.0 Specific [place] 1.020 N 1.001-1.035 9 Opiates Panel By 02/24/2018 [facility] 6-Nicole (Heroin Negative ng/ mL N 5 LC/MS/MS Metabolite) Codeine Negative ng/mL N 50 Hydrocodone 2076 Positive Co <SEE NOTE> ng/mL N 50 10 Hydromorphone Negative Consist <SEE NOTE> ng/mL N 50 11 Morphine Negative ng/mL N 50 Norhydrocodone 1273 Positive Co <SEE NOTE> ng/mL N 50 12 Noroxycodone Negative ng/mL N 50 Noroxymorphone Negative ng/mL N 50 Oxycodone Negative ng/mL N 50 Oxymorphone Negative ng/mL N 50 13 Methadone Panel By 02/24/2018 [facility] Eddp Negative ng/mL N 10 LC/MS/MS Methadone Negative ng/mL N 10 14 Buprenorphine Panel By 02/24/2018 [facility] Buprenorphine Negative ng/mL N 5 LC/MS/MS Naloxone Negative ng/mL N 10 Norbuprenorphine Negative ng/mL N 5 15 Benzodiazepines 02/24/2018 [facility] 2-Hydroxyethylflurazepam Negative N 10 Panel By LC/MS/MS ng/mL 7-Aminoclonazepam Negative ng/mL N 10 Alprazolam Negative ng/mL N 10 Chlordiazepoxide Negative ng/mL N 10 Clonazepam Negative ng/mL N 10 Desalkylflurazepam Negative ng/mL N 10 Diazepam Negative ng/mL N 10 Lorazepam Negative ng/mL N 10 Midazolam Negative ng/ml N 10 Nordiazepam Negative ng/mL N 10 Alpha-hydroxyalprazolam Negative ng/mL N 10 Alpha-Hydroxymidazolam Negative ng/mL N 10 Alpha-Hydroxytriazolam Negative ng/mL N 10 Oxazepam Negative ng/mL N 10 Prazepam Negative ng/mL N 10 Temazepam Negative ng/mL N 10 16 Barbiturates Panel By 02/24/2018 [facility] Butalbital Negative ng/mL N 100 LC/MS/MS Pentobarbital Negative ng/mL N 100 Phenobarbital Negative ng/mL N 100 Secobarbital Negative ng/mL N 100 17 Antidepressants Panel 02/24/2018 [facility] Amitriptyline Negative ng/mL N 20 By LC/MS/MS Clomipramine Negative ng/mL N 20 Desipramine Negative ng/mL N 20 Doxepin Negative ng/mL N 20 Fluoxetine Negative ng/mL N 20 Imipramine Negative ng/mL N 20 Norclomipramine Negative ng/mL N 20 Nordoxepin Negative ng/mL N 20 Nortriptyline Negative ng/mL N 20 Sertraline Negative ng/mL N 20 Trimipramine Negative ng/mL N 20 18 Urine DRG SCR 02/24/2018 [facility] Amphetamine NEGATIVE N 1000 (12PNL-PM) Barbiturate NEGATIVE N 200 Benzodiazepine NEGATIVE N 200 Buprenorphine NEGATIVE N 15 Cannabinoid NEGATIVE N 50 Cocaine NEGATIVE N 300 Methadone NEGATIVE N 300 Opiate POSITIVE Abnormal 300 Oxycodone NEGATIVE N 300 Phencyclidine NEGATIVE N 25 19 Urine Drug [place] 02/24/2018 [facility] [id number] < pending> Ethyl Glucuronide <pending> Laboratory test 11/05/2017 [facility] Surgical SEE RESULT 20, 21 finding Interface Order BELOW Laboratory test 09/06/2017 [facility] Ammonia 20 ?mol/L N 16-53 finding Laboratory test 09/06/2017 [facility] Stool Occult SEE RESULT 22 finding Blood, Screen BELOW Urinalysis 09/06/2017 [facility] Urine Color Kelle Profile Urine Appearance Cloudy Urine Specific [place] 1.019 N 1.010-1.030 Urine pH 5.0 N 5-9 Urine Urobilinogen Negative Negative Urine Ketones Trace Abnormal Negative Urine Protein 2+(100 mg/dL) Abnormal Negative Urine Leukocytes 3+ Abnormal Negative Urine Blood 3+ Abnormal Negative Urine Nitrite Negative Negative Urine Bilirubin Negative Negative Urine Glucose Negative Negative Urine White Blood Cell 3+(>20/hpf) Abnormal Absent Urine Red Blood Cell 3+(>10/hpf) Abnormal Absent Urine Bacteria Absent Absent Laboratory test 09/06/2017 [facility] Urine Culture And SEE RESULT 23 finding Sensitivities BELOW Lipid Profile 08/19/2017 [facility] Triglycerides 99 mg/dL 24 (Trig/Chol/HDL) Cholesterol 80 mg/dL 25 HDL Cholesterol 32.7 mg/dL 26 LDL Cholesterol 28 mg/dL 27 Laboratory test 08/19/2017 [facility] Hemoglobin A1c 4.8 % N 4.0-5.6 28 finding (Glyco HGB) TSH (Thyroid Stim Horm) 2.50 mcIU/mL N 0.34-5.60 29 Comp Metabolic Panel 08/19/2017 [facility] Sodium 140 mmol/L N 133- 145 Potassium 4.2 mmol/L N 3.5-5.0 Chloride 105 mmol/L N 101-111 Co2 Carbon Dioxide 25 mmol/L N 22-32 Anion Gap 10 mmol/L N 2-11 Glucose 81 mg/dL N 70-100 Blood Urea Nitrogen 16 mg/dL N 6-24 Creatinine 1.18 mg/dL High 0.67-1.17 BUN/Creatinine Ratio 13.6 N 8-20 Calcium 9.5 mg/dL N 8.6-10.3 Total Protein 6.5 g/dL N 6.4-8.9 Albumin 3.6 g/dL N 3.2-5.2 Globulin 2.9 g/dL N 2-4 Albumin/Globulin Ratio 1.2 N 1-3 Total Bilirubin 0.40 mg/dL N 0.2-1.0 Alkaline Phosphatase 60 U/L N 34-104 Alt 7 U/L N 7-52 Ast 10 U/L Low 13-39 Egfr Non- 59.9 >60 Egfr 77.0 >60 30 CBC Auto Diff 08/19/2017 [facility] White Blood Count 7.8 10^3/uL N 3.5-10.8 Red Blood Count 4.17 10^6/uL N 4.0-5.4 Hemoglobin 13.1 g/dL Low 14.0-18.0 Hematocrit 39 % Low 42-52 Mean Corpuscular Volume 93 fL N 80-94 Mean Corpuscular Hemoglobin 31 pg N 27-31 Mean Corpuscular HGB Conc 34 g/dL N 31-36 Red Cell Distribution Width 14 % N 10.5-15 Platelet Count 219 10^3/uL N 150-450 Mean Platelet Volume 9 um3 N 7.4-10.4 Abs Neutrophils 5.8 10^3/uL N 1.5-7.7 Abs Lymphocytes 1.4 10^3/uL N 1.0-4.8 Abs Monocytes 0.4 10^3/uL N 0-0.8 Abs Eosinophils 0.2 10^3/uL N 0-0.6 Abs Basophils 0 10^3/uL N 0-0.2 Abs Nucleated RBC 0 10^3/uL Granulocyte % 74.2 % N 38-83 Lymphocyte % 17.9 % Low 25-47 Monocyte % 5.1 % N 1-9 Eosinophil % 2.3 % N 0-6 Basophil % 0.5 % N 0-2 Nucleated Red Blood Cells % 0 CBC Auto Diff 05/07/2017 [facility] White Blood 12.7 10^3/uL High 3.5 -10.8 Count Red Blood Count 4.10 10^6/uL N 4.0-5.4 Hemoglobin 12.3 g/dL Low 14.0-18.0 Hematocrit 37 % Low 42-52 Mean Corpuscular Volume 90 fL N 80-94 Mean Corpuscular Hemoglobin 30 pg N 27-31 Mean Corpuscular HGB Conc 33 g/dL N 31-36 Red Cell Distribution Width 13 % N 10.5-15 Platelet Count 285 10^3/uL N 150-450 Mean Platelet Volume 9 um3 N 7.4-10.4 Abs Neutrophils 10.2 10^3/uL High 1.5-7.7 Abs Lymphocytes 1.5 10^3/uL N 1.0-4.8 Abs Monocytes 0.8 10^3/uL N 0-0.8 Abs Eosinophils 0.2 10^3/uL N 0-0.6 Abs Basophils 0 10^3/uL N 0-0.2 Abs Nucleated RBC 0.01 10^3/uL N Granulocyte % 80.4 % N 38-83 Lymphocyte % 11.8 % Low 25-47 Monocyte % 5.9 % N 1-9 Eosinophil % 1.6 % N 0-6 Basophil % 0.3 % N 0-2 Nucleated Red Blood Cells % 0 N Comp Metabolic Panel 05/07/2017 [facility] Sodium 140 mmol/L N 133- 145 Potassium 4.0 mmol/L N 3.5-5.0 Chloride 105 mmol/L N 101-111 Co2 Carbon Dioxide 28 mmol/L N 22-32 Anion Gap 7 mmol/L N 2-11 Glucose 85 mg/dL N 70-100 Blood Urea Nitrogen 21 mg/dL N 6-24 Creatinine 1.75 mg/dL High 0.67-1.17 BUN/Creatinine Ratio 12.0 N 8-20 Calcium 8.8 mg/dL N 8.6-10.3 Total Protein 6.2 g/dL Low 6.4-8.9 Albumin 3.0 g/dL Low 3.2-5.2 Globulin 3.2 g/dL N 2-4 Albumin/Globulin Ratio 0.9 Low 1-3 Total Bilirubin 0.60 mg/dL N 0.2-1.0 Alkaline Phosphatase 59 U/L N 34-104 Alt 8 U/L N 7-52 Ast 11 U/L Low 13-39 Egfr Non- 38.1 N >60 Egfr 49.0 N >60 31 Laboratory test 05/07/2017 [facility] TSH (Thyroid 2.84 mcIU/mL N 0.34-5.60 32 finding Stim Horm) Hemoglobin A1c (Glyco HGB) 5.0 % N 4.0-5.6 33 Lipid Profile 05/07/2017 [facility] Triglycerides 114 mg/dL N 34 (Trig/Chol/HDL) Cholesterol 88 mg/dL N 35 HDL Cholesterol 30.4 mg/dL N 36 LDL Cholesterol 35 mg/dL N 37 Laboratory test finding 05/07/2017 [facility] Vitamin B12 694 pg/mL N 180-914 38 Folic Acid (Folate) 16.74 ng/mL N >3.99 39 Vitamin D Total 25(Oh) 26.4 ng/mL N 20-50 40 Erythrocyte Sed Rate 19 mm/Hr N 0-40 41 CBC Auto Diff 01/16/2017 [facility] White Blood Count 6.7 10^3/uL N 3.5-10.8 Red Blood Count 4.55 10^6/uL N 4.0-5.4 Hemoglobin 14.8 g/dL N 14.0-18.0 Hematocrit 45 % N 42-52 Mean Corpuscular Volume 98 fL High 80-94 Mean Corpuscular Hemoglobin 33 pg High 27-31 Mean Corpuscular HGB Conc 33 g/dL N 31-36 Red Cell Distribution Width 13 % N 10.5-15 Platelet Count 155 10^3/uL N 150-450 Mean Platelet Volume 9 um3 N 7.4-10.4 Abs Neutrophils 4.3 10^3/uL N 1.5-7.7 Abs Lymphocytes 1.5 10^3/uL N 1.0-4.8 Abs Monocytes 0.5 10^3/uL N 0-0.8 Abs Eosinophils 0.3 10^3/uL N 0-0.6 Abs Basophils 0.1 10^3/uL N 0-0.2 Abs Nucleated RBC 0.01 10^3/uL N Granulocyte % 64.3 % N 38-83 Lymphocyte % 21.9 % Low 25-47 Monocyte % 8.0 % N 1-9 Eosinophil % 4.6 % N 0-6 Basophil % 1.2 % N 0-2 Nucleated Red Blood Cells % 0.1 N Comp Metabolic Panel 01/16/2017 [facility] Sodium 141 mmol/L N 133- 145 Potassium 3.9 mmol/L N 3.5-5.0 Chloride 106 mmol/L N 101-111 Co2 Carbon Dioxide 27 mmol/L N 22-32 Anion Gap 8 mmol/L N 2-11 Glucose 87 mg/dL N 70-100 Blood Urea Nitrogen 19 mg/dL N 6-24 Creatinine 1.15 mg/dL N 0.67-1.17 BUN/Creatinine Ratio 16.5 N 8-20 Calcium 9.1 mg/dL N 8.6-10.3 Total Protein 6.2 g/dL Low 6.4-8.9 Albumin 3.7 g/dL N 3.2-5.2 Globulin 2.5 g/dL N 2-4 Albumin/Globulin Ratio 1.5 N 1-3 Total Bilirubin 0.70 mg/dL N 0.2-1.0 Alkaline Phosphatase 57 U/L N 34-104 Alt 12 U/L N 7-52 Ast 18 U/L N 13-39 Egfr Non- 61.8 N >60 Egfr 79.5 N >60 42 Laboratory test 01/16/2017 [facility] Hemoglobin A1c 4.9 % N Less than 43 finding (Glyco HGB) 6.0 Vitamin D Total 25(Oh) 29.2 ng/mL Low 30-50 44 Vitamin B12 848 pg/mL N 180-914 45 TSH (Thyroid Stim Horm) 1.74 mcIU/mL N 0.34-5.60 46 Lipid Profile 01/16/2017 [facility] Triglycerides 126 mg/dL N 47 (Trig/Chol/HDL) Cholesterol 94 mg/dL N 48 HDL Cholesterol 36.4 mg/dL N 49 LDL Cholesterol 32 mg/dL N 50 Laboratory test finding 01/16/2017 [facility] Amylase 36 U/L N 29- 103 51 Lipase 27 U/L N 11.0-82.0 52 Laboratory test 05/23/2016 [facility] Hemoglobin A1c 5.1 % N Less than 53 finding (Glyco HGB) 6.0 Vitamin B12 621 pg/mL N 180-914 54 Vitamin D Total 25(Oh) 27.2 ng/mL Low 30-50 55 Lipid Profile (Trig/Chol/HDL) 05/23/2016 [facility] Triglycerides 89 mg /dL N 56 Cholesterol 76 mg/dL N 57 HDL Cholesterol 35.8 mg/dL N 58 LDL Cholesterol 22 mg/dL N 59 Laboratory test 05/23/2016 [facility] TSH (Thyroid 3.38 mcIU/mL N 0.34-5.60 60 finding Stim Horm) Comp Metabolic 05/23/2016 [facility] Sodium 142 mmol/L N 133-145 Panel Potassium 4.7 mmol/L N 3.5-5.0 Chloride 107 mmol/L N 101-111 Co2 Carbon Dioxide 28 mmol/L N 22-32 Anion Gap 7 mmol/L N 2-11 Glucose 73 mg/dL N 70-100 Blood Urea Nitrogen 20 mg/dL N 6-24 Creatinine 1.16 mg/dL N 0.67-1.17 BUN/Creatinine Ratio 17.2 N 8-20 Calcium 8.9 mg/dL N 8.6-10.3 Total Protein 6.1 g/dL Low 6.4-8.9 Albumin 4.0 g/dL N 3.2-5.2 Globulin 2.1 g/dL N 2-4 Albumin/Globulin Ratio 1.9 N 1-3 Total Bilirubin 1.00 mg/dL N 0.2-1.0 Alkaline Phosphatase 45 U/L N 34-104 Alt 12 U/L N 7-52 Ast 18 U/L N 13-39 Egfr Non- 61.4 N >60 Egfr 78.9 N >60 61 CBC Auto Diff 05/23/2016 [facility] White Blood Count 9.0 10^3/uL N 3.5-10.8 Red Blood Count 4.64 10^6/uL N 4.0-5.4 Hemoglobin 14.9 g/dL N 14.0-18.0 Hematocrit 44 % N 42-52 Mean Corpuscular Volume 96 fL High 80-94 Mean Corpuscular Hemoglobin 32 pg High 27-31 Mean Corpuscular HGB Conc 34 g/dL N 31-36 Red Cell Distribution Width 13 % N 10.5-15 Platelet Count 140 10^3/uL Low 150-450 Mean Platelet Volume 9 um3 N 7.4-10.4 Abs Neutrophils 6.7 10^3/uL N 1.5-7.7 Abs Lymphocytes 1.4 10^3/uL N 1.0-4.8 Abs Monocytes 0.6 10^3/uL N 0-0.8 Abs Eosinophils 0.2 10^3/uL N 0-0.6 Abs Basophils 0 10^3/uL N 0-0.2 Abs Nucleated RBC 0.01 10^3/uL N Granulocyte % 75.0 % N 38-83 Lymphocyte % 15.8 % Low 25-47 Monocyte % 6.5 % N 1-9 Eosinophil % 2.2 % N 0-6 Basophil % 0.5 % N 0-2 Nucleated Red Blood Cells % 0.1 N Urinalysis With Microscopic 07/03/2015 [place] Urine Color YELLOW Yellow Urine Clarity CLEAR Clear Urine Glucose - Dipstick NEGATIVE mg/dL Negative Urine Bilirubin - Dipstick NEGATIVE Negative Urine Ketone NEGATIVE mg/dL Negative Urine Specific [place] 1.020 1.010-1.030 Urine Blood NEGATIVE Negative Urine PH 6.0 Low 6.5-7.5 Urine Protein - Dipstick 100 mg/dL High Negative Urine Urobilinogen - Dipstick 0.2 E.U./dL 0.2-1.0 Urine Nitrite - Dipstick NEGATIVE Negative Urine Leuk Esterase NEGATIVE Negative Urine RBC 0-2 rbc/hpf 0-2 Urine WBC 0-2 wbc/hpf 0-7 Urine Epithelial Cells FEW NONESEEN/lpf Urine Bacteria FEW NONESEEN Urine Amorph Sediment SMALL Negative Urine Screen 07/03/2015 [place] [facility] RFX Micro + Culture II See Note 62 Smear For WBC'S 07/01/2015 [place] Smear For WBC'S NONE SEEN Smear Source: STOOL Laboratory test 07/01/2015 [place] C. Difficile Toxin See Note 63 finding A/B Basic Metabolic Panel 06/30/2015 [place] Glucose 94 mg/dL 74-106 BUN 21 mg/dL High 7-18 Creatinine 0.9 mg/dL 0.6-1.3 Glom Filtration Rate, Estimate >60 mL/min >60 If >60 mL/min >60 64 BUN/Creat 23.3 ratio Sodium 139 mmol/L 136-145 Potassium 4.5 mmol/L 3.5-5.1 Chloride 103 mmol/L 98-107 Carbon Dioxide 29 mmol/L 21-32 Anion Gap 7 mEq/L Low 8-16 Calcium 8.8 mg/dL 8.5-10.1 Laboratory test finding 06/30/2015 [place] Magnesium 2.1 mg/dL 1.8-2.4 LDL Cholesterol Profile 06/30/2015 [place] Cholesterol 79 mg/dL <200 65 Triglycerides 116 mg/dL <150 66 HDL Cholesterol 32 mg/dL Low >40 67 LDL-Cholesterol 24 mg/dL < 100 68 Laboratory test 06/29/2015 [place] Sedimentation Rate 47 mm/hr High 0- 20 finding CBC 06/29/2015 [place] White Blood Count 5.6 K/uL 3.4-10.5 Red Blood Count 4.28 M/uL 4.20-5.80 Hemoglobin 13.5 gm/dL 12.8-17.0 Hematocrit 40.1 % 38.0-48.0 Mean Cell Volume 93.7 fl 80.0-96.0 Mean Corpuscular HGB 31.5 pg 27.0-33.0 Mean Corpuscular HGB Conc 33.7 g/dL 31.7-36.0 Platelet Count 169 K/uL 150-400 Red Cell Distri Width %CV 12.4 % 11.6-15.8 Mean Platelet Volume 11.3 fL High 6.6-10.6 Laboratory test finding 06/29/2015 [place] Magnesium 1.9 mg/dL 1.8-2.4 C-Reactive Protein,Quant 63.3 mg/L High <3.0 Basic Metabolic Panel 06/29/2015 [place] Glucose 90 mg/dL 74-106 BUN 22 mg/dL High 7-18 Creatinine 1.2 mg/dL 0.6-1.3 Glom Filtration Rate, Estimate >60 mL/min >60 If >60 mL/min >60 69 BUN/Creat 18.3 ratio Sodium 138 mmol/L 136-145 Potassium 4.3 mmol/L 3.5-5.1 Chloride 104 mmol/L 98-107 Carbon Dioxide 30 mmol/L 21-32 Anion Gap 4 mEq/L Low 8-16 Calcium 7.6 mg/dL Low 8.5-10.1 Basic Metabolic Panel 06/27/2015 [place] Glucose 99 mg/dL 74-106 BUN 14 mg/dL 7-18 Creatinine 0.9 mg/dL 0.6-1.3 Glom Filtration Rate, Estimate >60 mL/min >60 If >60 mL/min >60 70 BUN/Creat 15.5 ratio Sodium 141 mmol/L 136-145 Potassium 3.7 mmol/L 3.5-5.1 Chloride 105 mmol/L 98-107 Carbon Dioxide 26 mmol/L 21-32 Anion Gap 10 mEq/L 8-16 Calcium 8.8 mg/dL 8.5-10.1 CBS W/Automated Diff 06/27/2015 [place] White Blood Count 7.8 K/uL 3.4- 10.5 Red Blood Count 4.55 M/uL 4.20-5.80 Hemoglobin 14.4 gm/dL 12.8-17.0 Hematocrit 42.0 % 38.0-48.0 Mean Cell Volume 92.3 fl 80.0-96.0 Mean Corpuscular HGB 31.6 pg 27.0-33.0 Mean Corpuscular HGB Conc 34.3 g/dL 31.7-36.0 Platelet Count 172 K/uL 150-400 Red Cell Distri Width SD 40.7 fl 36-51 Red Cell Distri Width %CV 12.5 % 11.6-15.8 Mean Platelet Volume 10.9 fL High 6.6-10.6 Neut% 70.8 % 33.0-73.0 Lymph % 18.7 % 17.0-56.0 [place] % 7.2 % 0.0-10.0 Eo% 3.2 % 0.0-5.0 Bas% 0.1 % 0.1-1.0 Neut# 5.52 K/uL 1.8-7.0 Lymph # 1.46 K/uL Low 1.8-7.0 [place] # 0.56 K/uL 0.0-0.8 Eos # 0.25 K/uL 0.0-0.5 Baso # 0.01 K/uL Low 0.1-0.2 Laboratory test 06/26/2015 [place] C. Difficile Toxin See Note 71 finding A/B Basic Metabolic Panel 06/26/2015 [place] Glucose 113 mg/dL High 74-106 BUN 13 mg/dL 7-18 Creatinine 0.9 mg/dL 0.6-1.3 Glom Filtration Rate, Estimate >60 mL/min >60 If >60 mL/min >60 72 BUN/Creat 14.4 ratio Sodium 142 mmol/L 136-145 Potassium 3.8 mmol/L 3.5-5.1 Chloride 106 mmol/L 98-107 Carbon Dioxide 26 mmol/L 21-32 Anion Gap 10 mEq/L 8-16 Calcium 8.9 mg/dL 8.5-10.1 CBS W/Automated Diff 06/26/2015 [place] White Blood Count 6.9 K/uL 3.4- 10.5 Red Blood Count 4.78 M/uL 4.20-5.80 Hemoglobin 15.0 gm/dL 12.8-17.0 Hematocrit 44.1 % 38.0-48.0 Mean Cell Volume 92.3 fl 80.0-96.0 Mean Corpuscular HGB 31.4 pg 27.0-33.0 Mean Corpuscular HGB Conc 34.0 g/dL 31.7-36.0 Platelet Count 172 K/uL 150-400 Red Cell Distri Width SD 40.7 fl 36-51 Red Cell Distri Width %CV 12.4 % 11.6-15.8 Mean Platelet Volume 10.8 fL High 6.6-10.6 Neut% 72.2 % 33.0-73.0 Lymph % 17.2 % 17.0-56.0 [place] % 7.7 % 0.0-10.0 Eo% 2.6 % 0.0-5.0 Bas% 0.3 % 0.1-1.0 Neut# 4.99 K/uL 1.8-7.0 Lymph # 1.19 K/uL Low 1.8-7.0 [place] # 0.53 K/uL 0.0-0.8 Eos # 0.18 K/uL 0.0-0.5 Baso # 0.02 K/uL Low 0.1-0.2 Laboratory test 06/25/2015 [place] Act Partial 42.5 seconds High 23.9- 34.3 73 finding Thrombo Time Protime 06/25/2015 [place] Protime 13.2 seconds 12.1-14.9 Inr 1.0 0.9-1.1 74 CBS W/Automated Diff 06/25/2015 [place] White Blood Count 6.9 K/uL 3.4- 10.5 Red Blood Count 4.73 M/uL 4.20-5.80 Hemoglobin 14.8 gm/dL 12.8-17.0 Hematocrit 44.5 % 38.0-48.0 Mean Cell Volume 94.1 fl 80.0-96.0 Mean Corpuscular HGB 31.3 pg 27.0-33.0 Mean Corpuscular HGB Conc 33.3 g/dL 31.7-36.0 Platelet Count 189 K/uL 150-400 Red Cell Distri Width SD 42.0 fl 36-51 Red Cell Distri Width %CV 12.5 % 11.6-15.8 Mean Platelet Volume 11.0 fL High 6.6-10.6 Neut% 68.1 % 33.0-73.0 Lymph % 19.3 % 17.0-56.0 [place] % 9.5 % 0.0-10.0 Eo% 2.8 % 0.0-5.0 Bas% 0.3 % 0.1-1.0 Neut# 4.67 K/uL 1.8-7.0 Lymph # 1.32 K/uL Low 1.8-7.0 [place] # 0.65 K/uL 0.0-0.8 Eos # 0.19 K/uL 0.0-0.5 Baso # 0.02 K/uL Low 0.1-0.2 Laboratory test finding 06/25/2015 [place] CK 80 U/L 39-308 Troponin-I < 0.015 ng/mL 75 Comprehensive Metabolic Panel 06/25/2015 [place] Glucose 105 mg/dL 74- 106 BUN 13 mg/dL 7-18 Creatinine 1.0 mg/dL 0.6-1.3 Glom Filtration Rate, Estimate >60 mL/min >60 If >60 mL/min >60 76 BUN/Creat 13.0 ratio Sodium 142 mmol/L 136-145 Potassium 4.6 mmol/L 3.5-5.1 Chloride 105 mmol/L 98-107 Carbon Dioxide 30 mmol/L 21-32 Anion Gap 7 mEq/L Low 8-16 Calcium 9.0 mg/dL 8.5-10.1 Total Protein 7.0 g/dL 6.4-8.2 Albumin 3.4 g/dL 3.4-5.0 Globulin 3.6 g/dL 1.9-4.3 Alb/Glob 0.9 ratio Bilirubin,Total 0.6 mg/dL 0.2-1.0 Sgot/Ast 15 U/L 15-37 SGPT/Alt 17 U/L 12-78 Alkaline Phosphatase 68 U/L 45-117 Urine Screen 06/25/2015 [place] [facility] RFX Micro + See Note 77 Culture II Urinalysis With 06/25/2015 [place] Urine Color YELLOW Yellow Microscopic Urine Clarity CLEAR Clear Urine Glucose - Dipstick NEGATIVE mg/dL Negative Urine Bilirubin - Dipstick NEGATIVE Negative Urine Ketone NEGATIVE mg/dL Negative Urine Specific [place] 1.025 1.010-1.030 Urine Blood NEGATIVE Negative Urine PH 6.0 Low 6.5-7.5 Urine Protein - Dipstick 100 mg/dL High Negative Urine Urobilinogen - Dipstick 0.2 E.U./dL 0.2-1.0 Urine Nitrite - Dipstick NEGATIVE Negative Urine Leuk Esterase NEGATIVE Negative Urine RBC 0-2 rbc/hpf 0-2 Urine WBC 0-2 wbc/hpf 0-7 Urine Epithelial Cells VERY FEW NONESEEN/lpf Urine Bacteria VERY FEW NONESEEN Urine Amorph Sediment VERY FEW Negative CBC W/Automated Diff 05/14/2015 [place] White Blood Count 7.1 K/uL 3.4- 10.5 Red Blood Count 4.53 M/uL 4.20-5.80 Hemoglobin 15.1 gm/dL 12.8-17.0 Hematocrit 44.7 % 38.0-48.0 Mean Cell Volume 98.7 fl High 80.0-96.0 Mean Corpuscular HGB 33.3 pg High 27.0-33.0 Mean Corpuscular HGB Conc 33.8 g/dL 31.7-36.0 Platelet Count 213 K/uL 150-400 Red Cell Distri Width SD 46.6 fl 36-51 Red Cell Distri Width %CV 13.0 % 11.6-15.8 Mean Platelet Volume 11.1 fL High 6.6-10.6 Neut% 68.3 % 33.0-73.0 Lymph % 19.8 % 17.0-56.0 [place] % 7.5 % 0.0-10.0 Eo% 4.1 % 0.0-5.0 Bas% 0.3 % 0.1-1.0 Neut# 4.84 K/uL 1.8-7.0 Lymph # 1.40 K/uL Low 1.8-7.0 [place] # 0.53 K/uL 0.0-0.8 Eos # 0.29 K/uL 0.0-0.5 Baso # 0.02 K/uL Low 0.1-0.2 Comprehensive Metabolic Panel 05/14/2015 [place] Glucose 73 mg/dL Low 74 -106 BUN 30 mg/dL High 7-18 Creatinine 1.2 mg/dL 0.6-1.3 Glom Filtration Rate, Estimate >60 mL/min >60 If >60 mL/min >60 78 BUN/Creat 25.0 ratio Sodium 142 mmol/L 136-145 Potassium 4.7 mmol/L 3.5-5.1 Chloride 111 mmol/L High 98-107 Carbon Dioxide 26 mmol/L 21-32 Anion Gap 5 mEq/L Low 8-16 Calcium 9.1 mg/dL 8.5-10.1 Total Protein 6.7 g/dL 6.4-8.2 Albumin 3.6 g/dL 3.4-5.0 Globulin 3.1 g/dL 1.9-4.3 Alb/Glob 1.2 ratio Bilirubin,Total 0.2 mg/dL 0.2-1.0 Sgot/Ast 19 U/L 15-37 SGPT/Alt 20 U/L 12-78 Alkaline Phosphatase 63 U/L 45-117 Laboratory test finding 05/14/2015 [place] Sedimentation Rate 22 mm/hr High 0-20 Lipase 331 U/L 73-393 Amylase 71 U/L 25-115 Thyroid Stim Hormone 2.01 uIU/mL 0.36-3.74 Glycohemoglobin A1c 05/14/2015 [place] Glycohemoglobin (A1c) 5.4 % 4.2- 6.3 79 eAG 108 mg/dL LDL Cholesterol Profile 05/14/2015 [place] Cholesterol 131 mg/dL <200 80 Triglycerides 120 mg/dL <150 81 HDL Cholesterol 32 mg/dL Low >40 82 LDL-Cholesterol 75 mg/dL < 100 83 Vitamin B12 And Folate 05/14/2015 [place] Vitamin B12 449 pg/mL 193- 986 Folic Acid 10.8 ng/mL 3.1-17.5 Laboratory test finding 05/14/2015 [place] Magnesium 1.9 mg/dL 1.8-2.4 1 Prescribed Medications: Hydrocodone (Hydrocodone), Ambien (Zolpidem), Acetaminophen (Acetaminophen), ALBUTEROL, PROVENTIL, OMEPRAZOLE, ATORVASTATIN 2 Positive >2000 Inconsistent 3 Prescribed Medications: Hydrocodone (Hydrocodone), Ambien (Zolpidem), Acetaminophen (Acetaminophen), ALBUTEROL, PROVENTIL, OMEPRAZOLE, ATORVASTATIN 4 Prescribed Medications: Hydrocodone (Hydrocodone), Ambien (Zolpidem), Acetaminophen (Acetaminophen), ALBUTEROL, PROVENTIL, OMEPRAZOLE, ATORVASTATIN 5 Prescribed Medications: Hydrocodone (Hydrocodone), Ambien (Zolpidem), Acetaminophen (Acetaminophen), ALBUTEROL, PROVENTIL, OMEPRAZOLE, ATORVASTATIN 6 Prescribed Medications: Hydrocodone (Hydrocodone), Ambien (Zolpidem), Acetaminophen (Acetaminophen), ALBUTEROL, PROVENTIL, OMEPRAZOLE, ATORVASTATIN 7 22 Positive Consistent The common brand name for Zolpidem is Ambien. Prescribed Medications: Hydrocodone (Hydrocodone), Ambien (Zolpidem), Acetaminophen (Acetaminophen), ALBUTEROL, PROVENTIL, OMEPRAZOLE, ATORVASTATIN 8 Prescribed Medications: Hydrocodone (Hydrocodone), Ambien (Zolpidem), Acetaminophen (Acetaminophen), ALBUTEROL, PROVENTIL, OMEPRAZOLE, ATORVASTATIN 9 Prescribed Medications: Hydrocodone (Hydrocodone), Ambien (Zolpidem), Acetaminophen (Acetaminophen), ALBUTEROL, PROVENTIL, OMEPRAZOLE, ATORVASTATIN 10 2076 Positive Consistent 11 Negative Consistent 12 1273 Positive Consistent 13 Prescribed Medications: Hydrocodone (Hydrocodone), Ambien (Zolpidem), Acetaminophen (Acetaminophen), ALBUTEROL, PROVENTIL, OMEPRAZOLE, ATORVASTATIN 14 Prescribed Medications: Hydrocodone (Hydrocodone), Ambien (Zolpidem), Acetaminophen (Acetaminophen), ALBUTEROL, PROVENTIL, OMEPRAZOLE, ATORVASTATIN 15 Prescribed Medications: Hydrocodone (Hydrocodone), Ambien (Zolpidem), Acetaminophen (Acetaminophen), ALBUTEROL, PROVENTIL, OMEPRAZOLE, ATORVASTATIN 16 Prescribed Medications: Hydrocodone (Hydrocodone), Ambien (Zolpidem), Acetaminophen (Acetaminophen), ALBUTEROL, PROVENTIL, OMEPRAZOLE, ATORVASTATIN 17 Prescribed Medications: Hydrocodone (Hydrocodone), Ambien (Zolpidem), Acetaminophen (Acetaminophen), ALBUTEROL, PROVENTIL, OMEPRAZOLE, ATORVASTATIN 18 Prescribed Medications: Hydrocodone (Hydrocodone), Ambien (Zolpidem), Acetaminophen (Acetaminophen), ALBUTEROL, PROVENTIL, OMEPRAZOLE, ATORVASTATIN 19 Prescribed Medications: Hydrocodone (Hydrocodone), Ambien (Zolpidem), Acetaminophen (Acetaminophen), ALBUTEROL, PROVENTIL, OMEPRAZOLE, ATORVASTATIN 20 [id number] 21 SEE RESULT BELOW Name: ZACH JOSEPH: [address]: Walt Chilel MD Acct: [id number] Unit: [id number] AGE: 77 Location: [facility] Re11/05/17 SEX: M Status: DEP REF SPEC: [id number] ALLY: 11/05/17-[address] [facility] [address]: Walt Chilel MD REQ: [id number] RECD: 11/05/17-115 STATUS: FERNANDA VILA DR: Shira Becerril MD _ ORDERED: LEVEL 4, IMMUNO-FIRST COMMENTS: [id number] Addendum: An immunohistochemical stain for Helicobacter pylori-like organisms was performed with appropriate controls and is negative. Addendum Signed (signature on file) Minor Xavier MD 1447 FINAL DIAGNOSIS Stomach, body, biopsy: -- Body-type gastric mucosa with mild chronic gastritis; see comment. COMMENT: An H. pylori immunohistochemical stain is pending and the results will be reported in an addendum. CLINICAL HISTORY History of gastric ulcer POST-OPERATIVE DIAGNOSIS Stomach ? no ulcer, biopsy for H. pylori. Conclusions/Plan: Proton pump inhibitor GROSS DESCRIPTION The specimen is received in formalin labeled, Biopsies Gastric Body, and consists of a 0.5 x 0.3 x 0.2 cm speckled millard-red irregular to polypoid soft tissue fragment, which is entirely submitted in one cassette. Signed by and Reported on: Monique Maciel MD 11/06/17 1100 END OF REPORT DEPARTMENT OF PATHOLOGY, [address] [place] [address] Minor Xavier M.D. Director [facility] # [id number] 22 SEE RESULT BELOW Name: ZACH JOSEPH : [address]: Terrance Dos Santos MD Acct: [id number] Unit: [id number] AGE: 77 Location: ED Re09/06/17 SEX: M Status: REG ER SPEC: [id number] LALY: 09/06/17-[address]: Terrance Dos Santos MD REQ: [id number] RECD: 09/06/17 STATUS: COMP JULITO DR: Shira Becerril MD _ SOURCE: STOOL SPDESC: ORDERED: Occult Bl, Scn Procedure Result Reported Site Stool Occult Blood (1) Final 09/06/17- 1320 ML Stool Occult Blood Positive Collection Date (1) 09/06/17 * [facility] - Main Lab . END OF REPORT DEPARTMENT OF PATHOLOGY, [address] [place] [address] Minor Xavier M.D. Director [facility] # [id number] 23 SEE RESULT BELOW Name: ZACH JOSEPH : [address]: Jude Almazan MD Acct: [id number] Unit: [id number] AGE: 77 Location: [facility] Re09/06/17 SEX: M Status: ADM IN SPEC: [id number] ALLY: 09/06/17-[address] [facility] [address]: Terrance Dos Santos MD REQ: [id number] RECD: 09/06/17 STATUS: COMP [facility] DR: Shira Becerril MD _ SOURCE: URINE SPDESC: ORDERED: Urine Culture Procedure Result Reported Site Urine Culture Final 09/07/17- 1144 ML Organism 1 AEROCOCCUS SPECIES [place] Count >100,000 (Many) CFU/ML Aerococcus isolates are too fastidious for routine susceptibility studies. Aerococcus are usually susceptible to penicillin, amoxicillin, piperacillin, cefipime, rifampin and vancomycin. Moderate to good activity occurs with the quinolones, tetracyclines and erythromycin. ([employer] [place] and Textbook of Diagnostic Microbiology 6th Ed. 2006, p. 705-6.) * ML - Main Lab . END OF REPORT DEPARTMENT OF PATHOLOGY, [address] [place] [address] Minor Xavier M.D. Director [facility] # [id number] 24 Desirable: <150 Borderline High: 150-199 High: 200-499 Very High: >500 25 Desirable: <200 Borderline High: 200-239 High: >239 26 Low: <40 Desirable: 40-60 High: >60 27 Desirable: <100 Near Optimal: 100-129 Borderline High: 130-159 High: 160-189 Very High: >189 28 Therapeutic target for the treatment of diabetes mellitus patients is <7% HBA1C, and in selective patients <6.0%. Please refer to [place] Diabetes Association diabetic care guidelines for further information. 29 [id number] 30 Because ethnic data is not always readily available, this report includes an eGFR for both -Americans and non- Americans. The National Kidney Disease Education Program (NKDEP) does not endorse the use of the MDRD equation for patients that are not between the ages of 18 and 70, are , have extremes of body size, muscle mass, or nutritional status, or are non- or non-. According to the National Kidney Foundation, irrespective of diagnosis, the stage of the disease is based on the level of kidney function: Stage Description GFR(mL/min/1.73 m(2)) 1 Kidney damage with normal or decreased GFR 90 2 Kidney damage with mild decrease in GFR 60-89 3 Moderate decrease in GFR 30-59 4 Severe decrease in GFR 15-29 5 Kidney failure <15 (or dialysis) 31 Because ethnic data is not always readily available, this report includes an eGFR for both -Americans and non- Americans. The National Kidney Disease Education Program (NKDEP) does not endorse the use of the MDRD equation for patients that are not between the ages of 18 and 70, are , have extremes of body size, muscle mass, or nutritional status, or are non- or non-. According to the National Kidney Foundation, irrespective of diagnosis, the stage of the disease is based on the level of kidney function: Stage Description GFR(mL/min/1.73 m(2)) 1 Kidney damage with normal or decreased GFR 90 2 Kidney damage with mild decrease in GFR 60-89 3 Moderate decrease in GFR 30-59 4 Severe decrease in GFR 15-29 5 Kidney failure <15 (or dialysis) 32 [id number] 33 Therapeutic target for the treatment of diabetes mellitus patients is <7% HBA1C, and in selective patients <6.0%. Please refer to [employer] Diabetes Association diabetic care guidelines for further information. 34 Desirable: <150 Borderline High: 150-199 High: 200-499 Very High: >500 35 Desirable: <200 Borderline High: 200-239 High: >239 36 Low: <40 Desirable: 40-60 High: >60 37 Desirable: <100 Near Optimal: 100-129 Borderline High: 130-159 High: 160-189 Very High: >189 38 Normal Range 180 to 914 Indeterminate Range 145 to 180 Deficient Range <145 39 [id number] 42 Because ethnic data is not always readily available, this report includes an eGFR for both -Americans and non- Americans. The National Kidney Disease Education Program (NKDEP) does not endorse the use of the MDRD equation for patients that are not between the ages of 18 and 70, are , have extremes of body size, muscle mass, or nutritional status, or are non- or non-. According to the National Kidney Foundation, irrespective of diagnosis, the stage of the disease is based on the level of kidney function: Stage Description GFR(mL/min/1.73 m(2)) 1 Kidney damage with normal or decreased GFR 90 2 Kidney damage with mild decrease in GFR 60-89 3 Moderate decrease in GFR 30-59 4 Severe decrease in GFR 15-29 5 Kidney failure <15 (or dialysis) 43 Therapeutic target for the treatment of diabetes Mellitus patients is <7% HBA1C, and in selective patients <6.0%.Please refer to [employer] Diabetes Association Diabetic care guidelines for further information. 44 [id number] Normal Range 180 to 914 Indeterminate Range 145 to 180 Deficient Range <145 46 [id number] 47 Desirable <150 Borderline high 150-199 High 200-499 Very High >500 48 Desirable <200 Borderline high 200-239 High >239 49 Low <40 Desirable: 40-60 High: >60 50 Desirable: <100 mg/dL Near Optimal: 100-129 mg/dL Borderline High: 130-159 mg/dL High: 160-189 mg/dL Very High: >189 mg/dL 51 [id number] Therapeutic target for the treatment of diabetes Mellitus patients is <7% HBA1C, and in selective patients <6.0%.Please refer to [employer] Diabetic care guidelines for further information. 54 Normal Range 180 to 914 Indeterminate Range 145 to 180 Deficient Range <145 55 [id number] Desirable <150 Borderline high 150-199 High 200-499 Very High >500 57 Desirable <200 Borderline high 200-239 High >239 58 Low <40 Desirable: 40-60 High: >60 59 Desirable: <100 mg/dL Near Optimal: 100-129 mg/dL Borderline High: 130-159 mg/dL High: 160-189 mg/dL Very High: >189 mg/dL 60 [id number] 61 Because ethnic data is not always readily available, this report includes an eGFR for both -Americans and non- Americans. The National Kidney Disease Education Program (NKDEP) does not endorse the use of the MDRD equation for patients that are not between the ages of 18 and 70, are , have extremes of body size, muscle mass, or nutritional status, or are non- or non-. According to the [employer], irrespective of diagnosis, the stage of the disease is based on the level of kidney function: Stage Description GFR(mL/min/1.73 m(2)) 1 Kidney damage with normal or decreased GFR 90 2 Kidney damage with mild decrease in GFR 60-89 3 Moderate decrease in GFR 30-59 4 Severe decrease in GFR 15-29 5 Kidney failure <15 (or dialysis) 62 07/03/15 LAB.EMM1 Deleted by [facility] 63 NEGATIVE FOR C. DIFFICILE TOXIN A/B. CORRELATE RESULTS WITH CLINICAL CONDITION. 64 Note: Persistent reduction for 3 months or more in an eGFR <60 mL/min/1.73 m2 defines CKD. Patients with eGFR values >/=60 mL/min/1.73 m2 may also have CKD if evidence of persistent proteinuria is present. The original MDRD equation for estimated GFR is not valid for patients less than 18 years of age. Additional information may be found at [email or web address]. 65 Reference Guidelines*: Desirable: ........... < 200 mg/dL Borderline High: ..... 200-239 mg/dL High: ................ >=240 mg/dL * The National Cholesterol Education Program (NCEP) 66 Reference Guidelines*: Normal: ............. < 150 mg/dL Borderline High: .... 150-199 mg/dL High: ............... 200-499 mg/dL Very High: .......... > 500 mg/dL * Source: National Cholesterol Education Program (NCEP) 67 Reference Guidelines*: Low HDL: ..... < 40 mg/dL Normal: ..... 40-60 mg/dL Desirable: ... > 60 mg/dL *The National Cholesterol Education Program(NCEP) 68 Reference Guidelines*: Optimal:........... <100 mg/dL Near Optimal....... 100-129 mg/dL Borderline High.... 130-159 mg/dL High............... 160-189 mg/dL Very High.......... >=190 mg/dL * Source: National Cholesterol Education Program (NCEP) 69 Note: Persistent reduction for 3 months or more in an eGFR <60 mL/min/1.73 m2 defines CKD. Patients with eGFR values >/=60 mL/min/1.73 m2 may also have CKD if evidence of persistent proteinuria is present. The original MDRD equation for estimated GFR is not valid for patients less than 18 years of age. Additional information may be found at [email or web address]. 70 Note: Persistent reduction for 3 months or more in an eGFR <60 mL/min/1.73 m2 defines CKD. Patients with eGFR values >/=60 mL/min/1.73 m2 may also have CKD if evidence of persistent proteinuria is present. The original MDRD equation for estimated GFR is not valid for patients less than 18 years of age. Additional information may be found at [email or web address]. 71 NEGATIVE FOR C. DIFFICILE TOXIN A/B. CORRELATE RESULTS WITH CLINICAL CONDITION. 72 Note: Persistent reduction for 3 months or more in an eGFR <60 mL/min/1.73 m2 defines CKD. Patients with eGFR values >/=60 mL/min/1.73 m2 may also have CKD if evidence of persistent proteinuria is present. The original MDRD equation for estimated GFR is not valid for patients less than 18 years of age. Additional information may be found at [email or web address]. 73 Is patient on anticoagulants? Coumadin QUERY: Anticoagulant Therapy? QUERY: Date of Last Dose: QUERY: Time of Last Dose: 74 THERAPEUTIC INR RANGE: 2.0 - 3.0 DVT, Pulmonary embolus, prophylaxis against venous thrombosis or systemic embolization in high risk patients. 2.5 - 3.5 Mechanical heart valves 75 0.0 - 0.045 ng/mL: Normal 0.046 - 0.5 ng/mL: Suggestive 0.6 - 1.5 ng/mL: Consistent 76 Note: Persistent reduction for 3 months or more in an eGFR <60 mL/min/1.73 m2 defines CKD. Patients with eGFR values >/=60 mL/min/1.73 m2 may also have CKD if evidence of persistent proteinuria is present. The original MDRD equation for estimated GFR is not valid for patients less than 18 years of age. Additional information may be found at [email or web address]. 77 06/25/15 HIMA.[email or web address] Deleted by [facility] 78 Note: Persistent reduction for 3 months or more in an eGFR <60 mL/min/1.73 m2 defines CKD. Patients with eGFR values >/=60 mL/min/1.73 m2 may also have CKD if evidence of persistent proteinuria is present. The original MDRD equation for estimated GFR is not valid for patients less than 18 years of age. Additional information may be found at [email or web address]. 79 Elevated levels of HbA1c suggest the need for more aggressive treatment of glycemia. The [place] [employer] recommends that a primary goal of therapy should be a HbA1c of <7% and that physicians should re-evaluate the treatment regimen in patients with HbA1c values consistently >8%. 80 Reference Guidelines*: Desirable: ........... < 200 mg/dL Borderline High: ..... 200-239 mg/dL High: ................ >=240 mg/dL * The National Cholesterol Education Program (NCEP) 81 Reference Guidelines*: Normal: ............. < 150 mg/dL Borderline High: .... 150-199 mg/dL High: ............... 200-499 mg/dL Very High: .......... > 500 mg/dL * Source: National Cholesterol Education Program (NCEP) 82 Reference Guidelines*: Low HDL: ..... < 40 mg/dL Normal: ..... 40-60 mg/dL Desirable: ... > 60 mg/dL *The National Cholesterol Education Program(NCEP) 83 Reference Guidelines*: Optimal:........... <100 mg/dL Near Optimal....... 100-129 mg/dL Borderline High.... 130-159 mg/dL High............... 160-189 mg/dL Very High.......... >=190 mg/dL * Source: National Cholesterol Education Program (NCEP) Procedures Date Code Description Status 05/14/2015 14618 Visual Screening Test Completed 05/14/2015 22887 EKG Completed 05/14/2015 56241 Audiometry, Bekesy, Screening Completed Encounters Type Date Location Provider Dx Diagnosis Office Visit 06/24/2018 [facility] Shira Becerril, [id number] Type 2 diabetes 1:00p M.D. 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.91 Hemiplegia, unspecified affecting right dominant side R26.89 Other abnormalities of gait and mobility L50.9 Urticaria, unspecified R29.6 Repeated falls K58.0 Irritable bowel syndrome with diarrhea R60.0 Localized edema R06.02 Shortness of breath K30 Functional dyspepsia R09.81 Nasal congestion K21.9 Gastro-esophageal reflux disease without esophagitis H54.7 Unspecified visual loss H91.93 Unspecified hearing loss, bilateral K59.00 Constipation, unspecified R10.84 Generalized abdominal pain M15.9 Polyosteoarthritis, unspecified Z98.84 Bariatric surgery status G47.00 Insomnia, unspecified E66.01 Morbid (severe) obesity due to excess calories J30.2 Other seasonal allergic rhinitis M25.569 Pain in unspecified knee L20.9 Atopic dermatitis, unspecified D48.5 Neoplasm of uncertain behavior of skin K25.7 Chronic gastric ulcer without hemorrhage or perforation N20.0 Calculus of kidney Z79.891 detention (current) use of opiate analgesic F10.10 Alcohol abuse, uncomplicated N39.0 Urinary tract infection, site not specified R30.0 Dysuria Office Visit 05/25/2018 1:30p [facility] Jone Remigiograham [id number] Type 2 diabetes Jasper Rodriguez 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.91 Hemiplegia, unspecified affecting right dominant side R26.89 Other abnormalities of gait and mobility L50.9 Urticaria, unspecified R29.6 Repeated falls K58.0 Irritable bowel syndrome with diarrhea R60.0 Localized edema R06.02 Shortness of breath K30 Functional dyspepsia R09.81 Nasal congestion K21.9 Gastro-esophageal reflux disease without esophagitis H54.7 Unspecified visual loss H91.93 Unspecified hearing loss, bilateral K59.00 Constipation, unspecified R10.84 Generalized abdominal pain M15.9 Polyosteoarthritis, unspecified Z98.84 Bariatric surgery status G47.00 Insomnia, unspecified E66.01 Morbid (severe) obesity due to excess calories J30.2 Other seasonal allergic rhinitis M25.569 Pain in unspecified knee L20.9 Atopic dermatitis, unspecified D48.5 Neoplasm of uncertain behavior of skin K25.7 Chronic gastric ulcer without hemorrhage or perforation N20.0 Calculus of kidney Z79.891 detention (current) use of opiate analgesic F10.10 Alcohol abuse, uncomplicated N39.0 Urinary tract infection, site not specified Office Visit 04/22/2018 1:00p [facility] Shira Becerril [id number] Type 2 diabetes Jasper Rodriguez 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.91 Hemiplegia, unspecified affecting right dominant side R26.89 Other abnormalities of gait and mobility L50.9 Urticaria, unspecified R29.6 Repeated falls K58.0 Irritable bowel syndrome with diarrhea R60.0 Localized edema R06.02 Shortness of breath K30 Functional dyspepsia R09.81 Nasal congestion K21.9 Gastro-esophageal reflux disease without esophagitis H54.7 Unspecified visual loss H91.93 Unspecified hearing loss, bilateral K59.00 Constipation, unspecified R10.84 Generalized abdominal pain M15.9 Polyosteoarthritis, unspecified Z98.84 Bariatric surgery status G47.00 Insomnia, unspecified E66.01 Morbid (severe) obesity due to excess calories J30.2 Other seasonal allergic rhinitis M25.569 Pain in unspecified knee L20.9 Atopic dermatitis, unspecified D48.5 Neoplasm of uncertain behavior of skin K25.7 Chronic gastric ulcer without hemorrhage or perforation N20.0 Calculus of kidney 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 F10.10 Alcohol abuse, uncomplicated Z23 Encounter for immunization Office Visit 03/25/2018 1:00p [facility] Shira Becerril [id number] Type 2 diabetes Jasper Rodriguez 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.91 Hemiplegia, unspecified affecting right dominant side R26.89 Other abnormalities of gait and mobility L50.9 Urticaria, unspecified R29.6 Repeated falls K58.0 Irritable bowel syndrome with diarrhea R60.0 Localized edema R06.02 Shortness of breath K30 Functional dyspepsia R09.81 Nasal congestion K21.9 Gastro-esophageal reflux disease without esophagitis H54.7 Unspecified visual loss H91.93 Unspecified hearing loss, bilateral K59.00 Constipation, unspecified R10.84 Generalized abdominal pain M15.9 Polyosteoarthritis, unspecified Z98.84 Bariatric surgery status G47.00 Insomnia, unspecified E66.01 Morbid (severe) obesity due to excess calories J30.2 Other seasonal allergic rhinitis M25.569 Pain in unspecified knee L20.9 Atopic dermatitis, unspecified D48.5 Neoplasm of uncertain behavior of skin K25.7 Chronic gastric ulcer without hemorrhage or perforation N20.0 Calculus of kidney 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.91 Hemiplegia, unspecified affecting right dominant side R26.89 Other abnormalities of gait and mobility L50.9 Urticaria, unspecified R29.6 Repeated falls K58.0 Irritable bowel syndrome with diarrhea R60.0 Localized edema R06.02 Shortness of breath K30 Functional dyspepsia R09.81 Nasal congestion K21.9 Gastro-esophageal reflux disease without esophagitis H54.7 Unspecified visual loss H91.93 Unspecified hearing loss, bilateral K59.00 Constipation, unspecified R10.84 Generalized abdominal pain M15.9 Polyosteoarthritis, unspecified Z98.84 Bariatric surgery status G47.00 Insomnia, unspecified E66.01 Morbid (severe) obesity due to excess calories J30.2 Other seasonal allergic rhinitis M25.569 Pain in unspecified knee L20.9 Atopic dermatitis, unspecified D48.5 Neoplasm of uncertain behavior of skin K25.7 Chronic gastric ulcer without hemorrhage or perforation N20.0 Calculus of kidney 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 Office Visit 01/25/2018 11:30a [facility] Shira Becerril [id number] Type 2 diabetes Jasper Rodriguez 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.91 Hemiplegia, unspecified affecting right dominant side R26.89 Other abnormalities of gait and mobility L50.9 Urticaria, unspecified R29.6 Repeated falls K58.0 Irritable bowel syndrome with diarrhea R60.0 Localized edema R06.02 Shortness of breath K30 Functional dyspepsia R09.81 Nasal congestion K21.9 Gastro-esophageal reflux disease without esophagitis H54.7 Unspecified visual loss H91.93 Unspecified hearing loss, bilateral K59.00 Constipation, unspecified R10.84 Generalized abdominal pain M15.9 Polyosteoarthritis, unspecified Z98.84 Bariatric surgery status G47.00 Insomnia, unspecified E66.01 Morbid (severe) obesity due to excess calories J30.2 Other seasonal allergic rhinitis M25.569 Pain in unspecified knee L20.9 Atopic dermatitis, unspecified D48.5 Neoplasm of uncertain behavior of skin K25.7 Chronic gastric ulcer without hemorrhage or perforation N20.0 Calculus of kidney Office Visit 12/24/2017 2:00p [id number] Jasper Rodriguez 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.91 Hemiplegia, unspecified affecting right dominant side R26.89 Other abnormalities of gait and mobility L50.9 Urticaria, unspecified R29.6 Repeated falls K58.0 Irritable bowel syndrome with diarrhea R60.0 Localized edema R06.02 Shortness of breath K30 Functional dyspepsia R09.81 Nasal congestion K21.9 Gastro-esophageal reflux disease without esophagitis H54.7 Unspecified visual loss H91.93 Unspecified hearing loss, bilateral K59.00 Constipation, unspecified R10.84 Generalized abdominal pain M15.9 Polyosteoarthritis, unspecified Z98.84 Bariatric surgery status G47.00 Insomnia, unspecified E66.01 Morbid (severe) obesity due to excess calories J30.2 Other seasonal allergic rhinitis M25.569 Pain in unspecified knee L20.9 Atopic dermatitis, unspecified D48.5 Neoplasm of uncertain behavior of skin K25.7 Chronic gastric ulcer without hemorrhage or perforation N20.0 Calculus of kidney Office Visit 11/26/2017 1:00p [facility] Jone Remigiograham [id number] Type 2 diabetes Jasper Rodriguez 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.91 Hemiplegia, unspecified affecting right dominant side R26.89 Other abnormalities of gait and mobility L50.9 Urticaria, unspecified R29.6 Repeated falls K58.0 Irritable bowel syndrome with diarrhea R60.0 Localized edema R06.02 Shortness of breath K30 Functional dyspepsia R09.81 Nasal congestion K21.9 Gastro-esophageal reflux disease without esophagitis H54.7 Unspecified visual loss H91.93 Unspecified hearing loss, bilateral K59.00 Constipation, unspecified R10.84 Generalized abdominal pain M15.9 Polyosteoarthritis, unspecified Z98.84 Bariatric surgery status G47.00 Insomnia, unspecified E66.01 Morbid (severe) obesity due to excess calories J30.2 Other seasonal allergic rhinitis M25.569 Pain in unspecified knee L20.9 Atopic dermatitis, unspecified D48.5 Neoplasm of uncertain behavior of skin K25.7 Chronic gastric ulcer without hemorrhage or perforation N20.0 Calculus of kidney Office Visit 10/27/2017 1:30p [facility] Jone Remigiograham [id number] Type 2 diabetes Jasper Rodriguez 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.91 Hemiplegia, unspecified affecting right dominant side R26.89 Other abnormalities of gait and mobility L50.9 Urticaria, unspecified R29.6 Repeated falls K58.0 Irritable bowel syndrome with diarrhea R60.0 Localized edema R06.02 Shortness of breath K30 Functional dyspepsia R09.81 Nasal congestion K21.9 Gastro-esophageal reflux disease without esophagitis H54.7 Unspecified visual loss H91.93 Unspecified hearing loss, bilateral K59.00 Constipation, unspecified R10.84 Generalized abdominal pain M15.9 Polyosteoarthritis, unspecified Z98.84 Bariatric surgery status G47.00 Insomnia, unspecified E66.01 Morbid (severe) obesity due to excess calories J30.2 Other seasonal allergic rhinitis M25.569 Pain in unspecified knee L20.9 Atopic dermatitis, unspecified D48.5 Neoplasm of uncertain behavior of skin K25.7 Chronic gastric ulcer without hemorrhage or perforation Office Visit 09/22/2017 1:45p [id number] Type 2 diabetes Jasper Rodriguez 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.91 Hemiplegia, unspecified affecting right dominant side R26.89 Other abnormalities of gait and mobility L50.9 Urticaria, unspecified R29.6 Repeated falls K58.0 Irritable bowel syndrome with diarrhea R60.0 Localized edema R06.02 Shortness of breath K30 Functional dyspepsia R09.81 Nasal congestion K21.9 Gastro-esophageal reflux disease without esophagitis H54.7 Unspecified visual loss H91.93 Unspecified hearing loss, bilateral K59.00 Constipation, unspecified R10.84 Generalized abdominal pain M15.9 Polyosteoarthritis, unspecified Z98.84 Bariatric surgery status G47.00 Insomnia, unspecified E66.01 Morbid (severe) obesity due to excess calories J30.2 Other seasonal allergic rhinitis M25.569 Pain in unspecified knee L20.9 Atopic dermatitis, unspecified D48.5 Neoplasm of uncertain behavior of skin A09 Infectious gastroenteritis and colitis, unspecified K25.7 Chronic gastric ulcer without hemorrhage or perforation N39.0 Urinary tract infection, site not specified Office Visit 08/19/2017 2:45p [id number] 2 diabetes Jasper Rodriguez 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.91 Hemiplegia, unspecified affecting right dominant side R26.89 Other abnormalities of gait and mobility L50.9 Urticaria, unspecified Z68.37 Body mass index (BMI) 37.0-37.9, adult R29.6 Repeated falls K58.0 Irritable bowel syndrome with diarrhea R60.0 Localized edema R06.02 Shortness of breath K30 Functional dyspepsia R09.81 Nasal congestion K21.9 Gastro-esophageal reflux disease without esophagitis H54.7 Unspecified visual loss H91.93 Unspecified hearing loss, bilateral K59.00 Constipation, unspecified R10.84 Generalized abdominal pain M15.9 Polyosteoarthritis, unspecified Z98.84 Bariatric surgery status G47.00 Insomnia, unspecified E66.01 Morbid (severe) obesity due to excess calories J30.2 Other seasonal allergic rhinitis M25.569 Pain in unspecified knee L20.9 Atopic dermatitis, unspecified D48.5 Neoplasm of uncertain behavior of skin Z00.01 Encounter for general adult medical exam w abnormal findings A09 Infectious gastroenteritis and colitis, unspecified Office Visit 06/04/2017 1:45p [facility] JoneShira sanders [id number] Type 2 diabetes Jasper Rodriguez 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.91 Hemiplegia, unspecified affecting right dominant side R26.89 Other abnormalities of gait and mobility L50.9 Urticaria, unspecified R29.6 Repeated falls K58.0 Irritable bowel syndrome with diarrhea R60.0 Localized edema R06.02 Shortness of breath K30 Functional dyspepsia R09.81 Nasal congestion K21.9 Gastro-esophageal reflux disease without esophagitis H54.7 Unspecified visual loss H91.93 Unspecified hearing loss, bilateral K59.00 Constipation, unspecified R10.84 Generalized abdominal pain M15.9 Polyosteoarthritis, unspecified Z98.84 Bariatric surgery status G47.00 Insomnia, unspecified E66.01 Morbid (severe) obesity due to excess calories J30.2 Other seasonal allergic rhinitis M25.569 Pain in unspecified knee L20.9 Atopic dermatitis, unspecified D48.5 Neoplasm of uncertain behavior of skin Office Visit 05/21/2017 1:45p [facility] Shira Becerril [id number] Type 2 diabetes Jasper Rodriguez 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.91 Hemiplegia, unspecified affecting right dominant side R26.89 Other abnormalities of gait and mobility L50.9 Urticaria, unspecified R29.6 Repeated falls K58.0 Irritable bowel syndrome with diarrhea R60.0 Localized edema R06.02 Shortness of breath K30 Functional dyspepsia R09.81 Nasal congestion K21.9 Gastro-esophageal reflux disease without esophagitis H54.7 Unspecified visual loss H91.93 Unspecified hearing loss, bilateral K59.00 Constipation, unspecified R10.84 Generalized abdominal pain M15.9 Polyosteoarthritis, unspecified Z98.84 Bariatric surgery status G47.00 Insomnia, unspecified E66.01 Morbid (severe) obesity due to excess calories J30.2 Other seasonal allergic rhinitis M25.569 Pain in unspecified knee L20.9 Atopic dermatitis, unspecified D48.5 Neoplasm of uncertain behavior of skin N39.0 Urinary tract infection, site not specified Office Visit 05/07/2017 1:30p [facility] Shira Becerril [id number] Type 2 diabetes Jasper Rodriguez 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.91 Hemiplegia, unspecified affecting right dominant side R26.89 Other abnormalities of gait and mobility L50.9 Urticaria, unspecified R29.6 Repeated falls K58.0 Irritable bowel syndrome with diarrhea R60.0 Localized edema R06.02 Shortness of breath K30 Functional dyspepsia R09.81 Nasal congestion K21.9 Gastro-esophageal reflux disease without esophagitis H54.7 Unspecified visual loss H91.93 Unspecified hearing loss, bilateral K59.00 Constipation, unspecified R10.84 Generalized abdominal pain M15.9 Polyosteoarthritis, unspecified Z98.84 Bariatric surgery status G47.00 Insomnia, unspecified E66.01 Morbid (severe) obesity due to excess calories J30.2 Other seasonal allergic rhinitis M25.569 Pain in unspecified knee L20.9 Atopic dermatitis, unspecified D48.5 Neoplasm of uncertain behavior of skin N39.0 Urinary tract infection, site not specified Office Visit 03/12/2017 1:45p [facility] JoneShira sanders [id number] Type 2 diabetes Lucia Rodriguez. mellitus with hyperglycemia J45.909 Unspecified asthma, uncomplicated M25.569 Pain in unspecified knee J30.2 Other seasonal allergic rhinitis E66.01 Morbid (severe) obesity due to excess calories Z98.84 Bariatric surgery status I63.9 Cerebral infarction, unspecified G47.00 Insomnia, unspecified M79.606 Pain in leg, unspecified L20.9 Atopic dermatitis, unspecified M15.9 Polyosteoarthritis, unspecified R10.84 Generalized abdominal pain K59.00 Constipation, unspecified H91.93 Unspecified hearing loss, bilateral H54.7 Unspecified visual loss K21.9 Gastro-esophageal reflux disease without esophagitis R09.81 Nasal congestion K30 Functional dyspepsia R06.02 Shortness of breath I69.828 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 mellitus with hyperglycemia J45.909 Unspecified asthma, uncomplicated M25.569 Pain in unspecified knee J30.2 Other seasonal allergic rhinitis E66.01 Morbid (severe) obesity due to excess calories Z98.84 Bariatric surgery status I63.9 Cerebral infarction, unspecified G47.00 Insomnia, unspecified M79.606 Pain in leg, unspecified L20.9 Atopic dermatitis, unspecified M15.9 Polyosteoarthritis, unspecified R10.84 Generalized abdominal pain K59.00 Constipation, unspecified H91.93 Unspecified hearing loss, bilateral H54.7 Unspecified visual loss K21.9 Gastro-esophageal reflux disease without esophagitis R09.81 Nasal congestion K30 Functional dyspepsia R06.02 Shortness of breath I69.828 Oth speech/lang deficits following oth cerebvasc disease G81.91 Hemiplegia, unspecified affecting right dominant side R26.89 Other abnormalities of gait and mobility R60.0 Localized edema D48.5 Neoplasm of uncertain behavior of skin I10 Essential (primary) hypertension K58.0 Irritable bowel syndrome with diarrhea R29.6 Repeated falls L50.9 Urticaria, unspecified R05 Cough E78.2 Mixed hyperlipidemia Z23 Encounter for immunization Office Visit 02/12/2017 2:00p [facility] Shira Becerril E11.65 Type 2 diabetes Jasper Rodriguez mellitus with hyperglycemia J45.909 Unspecified asthma, uncomplicated M25.569 Pain in unspecified knee J30.2 Other seasonal allergic rhinitis E66.01 Morbid (severe) obesity due to excess calories Z98.84 Bariatric surgery status I63.9 Cerebral infarction, unspecified G47.00 Insomnia, unspecified M79.606 Pain in leg, unspecified L20.9 Atopic dermatitis, unspecified M15.9 Polyosteoarthritis, unspecified R10.84 Generalized abdominal pain K59.00 Constipation, unspecified H91.93 Unspecified hearing loss, bilateral H54.7 Unspecified visual loss K21.9 Gastro-esophageal reflux disease without esophagitis R09.81 Nasal congestion K30 Functional dyspepsia R06.02 Shortness of breath I69.828 Oth speech/lang deficits following oth cerebvasc disease G81.91 Hemiplegia, unspecified affecting right dominant side R26.89 Other abnormalities of gait and mobility R60.0 Localized edema D48.5 Neoplasm of uncertain behavior of skin I10 Essential (primary) hypertension K58.0 Irritable bowel syndrome with diarrhea R29.6 Repeated falls L50.9 Urticaria, unspecified R05 Cough Office Visit 01/29/2017 2:15p [facility] Moise Loja E11.65 Type 2 diabetes PSYCHIC READER mellitus with hyperglycemia J45.909 Unspecified asthma, uncomplicated M25.569 Pain in unspecified knee J30.2 Other seasonal allergic rhinitis E66.01 Morbid (severe) obesity due to excess calories Z98.84 Bariatric surgery status I63.9 Cerebral infarction, unspecified G47.00 Insomnia, unspecified Office Visit 01/16/2017 2:00p [facility] Shira Becerril E11.65 Type 2 diabetes Jasper Rodriguez mellitus with hyperglycemia J45.909 Unspecified asthma, uncomplicated M25.569 Pain in unspecified knee J30.2 Other seasonal allergic rhinitis M79.606 Pain in leg, unspecified E66.01 Morbid (severe) obesity due to excess calories L20.9 Atopic dermatitis, unspecified Z98.84 Bariatric surgery status M15.9 Polyosteoarthritis, unspecified R10.84 Generalized abdominal pain K59.00 Constipation, unspecified G47.00 Insomnia, unspecified H91.93 Unspecified hearing loss, bilateral H54.7 Unspecified visual loss K21.9 Gastro-esophageal reflux disease without esophagitis R09.81 Nasal congestion K30 Functional dyspepsia R05 Cough I63.9 Cerebral infarction, unspecified R06.02 Shortness of breath I69.828 Oth speech/lang deficits following oth cerebvasc disease G81.91 Hemiplegia, unspecified affecting right dominant side R26.89 Other abnormalities of gait and mobility R60.0 Localized edema D48.5 Neoplasm of uncertain behavior of skin I10 Essential (primary) hypertension K58.0 Irritable bowel syndrome with diarrhea R29.6 Repeated falls L50.9 Urticaria, unspecified Office Visit 01/02/2017 2:00p [facility] Shira Becerril E11.65 Type 2 diabetes Jasper Rodriguez mellitus with hyperglycemia J45.909 Unspecified asthma, uncomplicated M25.569 Pain in unspecified knee J30.2 Other seasonal allergic rhinitis M79.606 Pain in leg, unspecified E66.01 Morbid (severe) obesity due to excess calories L20.9 Atopic dermatitis, unspecified Z98.84 Bariatric surgery status M15.9 Polyosteoarthritis, unspecified R10.84 Generalized abdominal pain K59.00 Constipation, unspecified G47.00 Insomnia, unspecified H91.93 Unspecified hearing loss, bilateral H54.7 Unspecified visual loss K21.9 Gastro-esophageal reflux disease without esophagitis R09.81 Nasal congestion K30 Functional dyspepsia R05 Cough I63.9 Cerebral infarction, unspecified R06.02 Shortness of breath I69.828 Oth speech/lang deficits following oth cerebvasc disease G81.91 Hemiplegia, unspecified affecting right dominant side R26.89 Other abnormalities of gait and mobility R60.0 Localized edema D48.5 Neoplasm of uncertain behavior of skin I10 Essential (primary) hypertension K58.0 Irritable bowel syndrome with diarrhea R29.6 Repeated falls L50.9 Urticaria, unspecified Office Visit 12/19/2016 2:00p [facility] JoneShira sanders E11.65 Type 2 diabetes Jasper Rodriguez mellitus with hyperglycemia J45.909 Unspecified asthma, uncomplicated M25.569 Pain in unspecified knee M79.606 Pain in leg, unspecified J30.2 Other seasonal allergic rhinitis E66.01 Morbid (severe) obesity due to excess calories L20.9 Atopic dermatitis, unspecified Z98.84 Bariatric surgery status M15.9 Polyosteoarthritis, unspecified R10.84 Generalized abdominal pain K59.00 Constipation, unspecified G47.00 Insomnia, unspecified H91.93 Unspecified hearing loss, bilateral H54.7 Unspecified visual loss K21.9 Gastro-esophageal reflux disease without esophagitis R09.81 Nasal congestion K30 Functional dyspepsia R05 Cough I63.9 Cerebral infarction, unspecified R06.02 Shortness of breath I69.828 Oth speech/lang deficits following oth cerebvasc disease G81.91 Hemiplegia, unspecified affecting right dominant side R26.89 Other abnormalities of gait and mobility R60.0 Localized edema D48.5 Neoplasm of uncertain behavior of skin I10 Essential (primary) hypertension K58.0 Irritable bowel syndrome with diarrhea R29.6 Repeated falls Office Visit 11/20/2016 11:30a [facility] JoneShira sanders E11.65 Type 2 diabetes Lucia Rodriguez. mellitus with hyperglycemia J45.909 Unspecified asthma, uncomplicated M25.569 Pain in unspecified knee M79.606 Pain in leg, unspecified J30.2 Other seasonal allergic rhinitis E66.01 Morbid (severe) obesity due to excess calories L20.9 Atopic dermatitis, unspecified Z98.84 Bariatric surgery status M15.9 Polyosteoarthritis, unspecified R10.84 Generalized abdominal pain K59.00 Constipation, unspecified G47.00 Insomnia, unspecified H91.93 Unspecified hearing loss, bilateral H54.7 Unspecified visual loss K21.9 Gastro-esophageal reflux disease without esophagitis R09.81 Nasal congestion K30 Functional dyspepsia R05 Cough I63.9 Cerebral infarction, unspecified R06.02 Shortness of breath I69.828 Oth speech/lang deficits following oth cerebvasc disease G81.91 Hemiplegia, unspecified affecting right dominant side R26.89 Other abnormalities of gait and mobility R60.0 Localized edema D48.5 Neoplasm of uncertain behavior of skin I10 Essential (primary) hypertension K58.0 Irritable bowel syndrome with diarrhea Office Visit 10/21/2016 1:30p [facility] JoneShira sanders E11.65 Type 2 diabetes Jasper Rodriguez mellitus with hyperglycemia J45.909 Unspecified asthma, uncomplicated M25.569 Pain in unspecified knee M79.606 Pain in leg, unspecified J30.2 Other seasonal allergic rhinitis E66.01 Morbid (severe) obesity due to excess calories L20.9 Atopic dermatitis, unspecified Z98.84 Bariatric surgery status M15.9 Polyosteoarthritis, unspecified R10.84 Generalized abdominal pain K59.00 Constipation, unspecified G47.00 Insomnia, unspecified H91.93 Unspecified hearing loss, bilateral H54.7 Unspecified visual loss K21.9 Gastro-esophageal reflux disease without esophagitis R09.81 Nasal congestion K30 Functional dyspepsia R05 Cough I63.9 Cerebral infarction, unspecified R06.02 Shortness of breath I69.828 Oth speech/lang deficits following oth cerebvasc disease G81.91 Hemiplegia, unspecified affecting right dominant side R26.89 Other abnormalities of gait and mobility R60.0 Localized edema D48.5 Neoplasm of uncertain behavior of skin J20.9 Acute bronchitis, unspecified J01.40 Acute pansinusitis, unspecified Office Visit 09/19/2016 10:45a [facility] JoneShira sanders E11.65 Type 2 diabetes Jasper Rodriguez mellitus with hyperglycemia J45.909 Unspecified asthma, uncomplicated M25.569 Pain in unspecified knee M79.606 Pain in leg, unspecified J30.2 Other seasonal allergic rhinitis E66.01 Morbid (severe) obesity due to excess calories L20.9 Atopic dermatitis, unspecified Z98.84 Bariatric surgery status M15.9 Polyosteoarthritis, unspecified R10.84 Generalized abdominal pain K59.00 Constipation, unspecified G47.00 Insomnia, unspecified H91.93 Unspecified hearing loss, bilateral H54.7 Unspecified visual loss K21.9 Gastro-esophageal reflux disease without esophagitis R09.81 Nasal congestion K30 Functional dyspepsia R05 Cough I63.9 Cerebral infarction, unspecified R06.02 Shortness of breath I69.828 Oth speech/lang deficits following oth cerebvasc disease G81.91 Hemiplegia, unspecified affecting right dominant side R26.89 Other abnormalities of gait and mobility R60.0 Localized edema D48.5 Neoplasm of uncertain behavior of skin J20.9 Acute bronchitis, unspecified J01.40 Acute pansinusitis, unspecified Office Visit 08/22/2016 1:30p [facility] Shira Becerril E11.65 Type 2 diabetes Jasper Rodriguez mellitus with hyperglycemia J45.909 Unspecified asthma, uncomplicated M25.569 Pain in unspecified knee M79.606 Pain in leg, unspecified J30.2 Other seasonal allergic rhinitis E66.01 Morbid (severe) obesity due to excess calories L20.9 Atopic dermatitis, unspecified Z98.84 Bariatric surgery status M15.9 Polyosteoarthritis, unspecified R10.84 Generalized abdominal pain K59.00 Constipation, unspecified G47.00 Insomnia, unspecified H91.93 Unspecified hearing loss, bilateral H54.7 Unspecified visual loss R09.81 Nasal congestion R05 Cough R06.02 Shortness of breath K21.9 Gastro-esophageal reflux disease without esophagitis K30 Functional dyspepsia I63.9 Cerebral infarction, unspecified I69.828 Oth speech/lang deficits following oth cerebvasc disease G81.91 Hemiplegia, unspecified affecting right dominant side R26.89 Other abnormalities of gait and mobility R60.0 Localized edema D48.5 Neoplasm of uncertain behavior of skin Office Visit 07/24/2016 1:30p [facility] Shira Becerril E11.65 Type 2 diabetes Jasper Rodriguez mellitus with hyperglycemia J45.909 Unspecified asthma, uncomplicated M25.569 Pain in unspecified knee M79.606 Pain in leg, unspecified J30.2 Other seasonal allergic rhinitis E66.01 Morbid (severe) obesity due to excess calories L20.9 Atopic dermatitis, unspecified Z98.84 Bariatric surgery status M15.9 Polyosteoarthritis, unspecified R10.84 Generalized abdominal pain K59.00 Constipation, unspecified G47.00 Insomnia, unspecified H91.93 Unspecified hearing loss, bilateral H54.7 Unspecified visual loss R09.81 Nasal congestion R05 Cough R06.02 Shortness of breath K21.9 Gastro-esophageal reflux disease without esophagitis K30 Functional dyspepsia I63.9 Cerebral infarction, unspecified I69.828 Oth speech/lang deficits following oth cerebvasc disease G81.91 Hemiplegia, unspecified affecting right dominant side R26.89 Other abnormalities of gait and mobility R60.0 Localized edema D48.5 Neoplasm of uncertain behavior of skin Z00.01 Encounter for general adult medical exam w abnormal findings Office Visit 06/23/2016 11:00a [facility] Moise Loja M25.569 Pain in PSYCHIC READER unspecified knee E11.65 Type 2 diabetes mellitus with hyperglycemia J30.2 Other seasonal allergic rhinitis E66.01 Morbid (severe) obesity due to excess calories Office Visit 05/23/2016 1:30p [facility] JoneShira M25.569 Pain in M., M.D. unspecified knee E11.65 Type 2 diabetes mellitus with hyperglycemia J45.909 Unspecified asthma, uncomplicated J30.2 Other seasonal allergic rhinitis L20.9 Atopic dermatitis, unspecified E66.01 Morbid (severe) obesity due to excess calories Z98.84 Bariatric surgery status M79.606 Pain in leg, unspecified M15.9 Polyosteoarthritis, unspecified R10.84 Generalized abdominal pain K59.00 Constipation, unspecified G47.00 Insomnia, unspecified H91.93 Unspecified hearing loss, bilateral H54.7 Unspecified visual loss R09.81 Nasal congestion R05 Cough R06.02 Shortness of breath K21.9 Gastro-esophageal reflux disease without esophagitis K30 Functional dyspepsia I63.9 Cerebral infarction, unspecified I69.828 Oth speech/lang deficits following oth cerebvasc disease G81.91 Hemiplegia, unspecified affecting right dominant side R26.89 Other abnormalities of gait and mobility R60.0 Localized edema D48.5 Neoplasm of uncertain behavior of skin Office Visit 04/24/2016 11:00a [facility] Shira Becerril M25.569 Pain in M., M.D. unspecified knee E11.65 Type 2 diabetes mellitus with hyperglycemia J45.909 Unspecified asthma, uncomplicated J30.2 Other seasonal allergic rhinitis L20.9 Atopic dermatitis, unspecified E66.01 Morbid (severe) obesity due to excess calories Z98.84 Bariatric surgery status M79.606 Pain in leg, unspecified M15.9 Polyosteoarthritis, unspecified R10.84 Generalized abdominal pain K59.00 Constipation, unspecified G47.00 Insomnia, unspecified H91.93 Unspecified hearing loss, bilateral H54.7 Unspecified visual loss R09.81 Nasal congestion R05 Cough R06.02 Shortness of breath K21.9 Gastro-esophageal reflux disease without esophagitis K30 Functional dyspepsia I63.9 Cerebral infarction, unspecified I69.828 Oth speech/lang deficits following oth cerebvasc disease G81.91 Hemiplegia, unspecified affecting right dominant side R26.89 Other abnormalities of gait and mobility R60.0 Localized edema D48.5 Neoplasm of uncertain behavior of skin Office Visit 03/25/2016 11:30a [facility] Shira Becerril M25.569 Pain in M., M.D. unspecified knee E11.65 Type 2 diabetes mellitus with hyperglycemia J45.909 Unspecified asthma, uncomplicated J30.2 Other seasonal allergic rhinitis L20.9 Atopic dermatitis, unspecified E66.01 Morbid (severe) obesity due to excess calories Z98.84 Bariatric surgery status M79.606 Pain in leg, unspecified M15.9 Polyosteoarthritis, unspecified R10.84 Generalized abdominal pain K59.00 Constipation, unspecified G47.00 Insomnia, unspecified H91.93 Unspecified hearing loss, bilateral H54.7 Unspecified visual loss R09.81 Nasal congestion R05 Cough R06.02 Shortness of breath K21.9 Gastro-esophageal reflux disease without esophagitis K30 Functional dyspepsia I63.9 Cerebral infarction, unspecified I69.828 Oth speech/lang deficits following oth cerebvasc disease G81.91 Hemiplegia, unspecified affecting right dominant side R26.89 Other abnormalities of gait and mobility R60.0 Localized edema D48.5 Neoplasm of uncertain behavior of skin Z23 Encounter for immunization [facility] Type 2 diabetes Lucia Rodriguez. mellitus with hyperglycemia J45.909 Unspecified asthma, uncomplicated J30.2 Other seasonal allergic rhinitis L20.9 Atopic dermatitis, unspecified E66.01 Morbid (severe) obesity due to excess calories Z98.84 Bariatric surgery status M25.569 Pain in unspecified knee M79.606 Pain in leg, unspecified M15.9 Polyosteoarthritis, unspecified R10.84 Generalized abdominal pain K59.00 Constipation, unspecified G47.00 Insomnia, unspecified H91.93 Unspecified hearing loss, bilateral H54.7 Unspecified visual loss R09.81 Nasal congestion R05 Cough R06.02 Shortness of breath K21.9 Gastro-esophageal reflux disease without esophagitis K30 Functional dyspepsia I63.9 Cerebral infarction, unspecified I69.828 Ot speech/lang deficits following oth cerebvasc disease G81.91 Hemiplegia, unspecified affecting right dominant side R26.89 Other abnormalities of gait and mobility R60.0 Localized edema D48.5 Neoplasm of uncertain behavior of skin Office Visit 01/25/2016 11:00a [facility] Shira Becerril E11.65 Type 2 diabetes Lucia Rodriguez. mellitus with hyperglycemia J45.909 Unspecified asthma, uncomplicated J30.2 Other seasonal allergic rhinitis L20.9 Atopic dermatitis, unspecified E66.01 Morbid (severe) obesity due to excess calories Z98.84 Bariatric surgery status M25.569 Pain in unspecified knee M79.606 Pain in leg, unspecified M15.9 Polyosteoarthritis, unspecified R10.84 Generalized abdominal pain K59.00 Constipation, unspecified G47.00 Insomnia, unspecified H91.93 Unspecified hearing loss, bilateral H54.7 Unspecified visual loss R09.81 Nasal congestion R05 Cough R06.02 Shortness of breath K21.9 Gastro-esophageal reflux disease without esophagitis K30 Functional dyspepsia I63.9 Cerebral infarction, unspecified I69.828 Oth speech/lang deficits following oth cerebvasc disease G81.91 Hemiplegia, unspecified affecting right dominant side R26.89 Other abnormalities of gait and mobility R60.0 Localized edema Office Visit 12/28/2015 11:30a [facility] JoneShira sanders E11.65 Type 2 diabetes Jasper Rodriguez mellitus with hyperglycemia J45.909 Unspecified asthma, uncomplicated J30.2 Other seasonal allergic rhinitis L20.9 Atopic dermatitis, unspecified E66.01 Morbid (severe) obesity due to excess calories Z98.84 Bariatric surgery status M25.569 Pain in unspecified knee M79.606 Pain in leg, unspecified M15.9 Polyosteoarthritis, unspecified R10.84 Generalized abdominal pain K59.00 Constipation, unspecified G47.00 Insomnia, unspecified H91.93 Unspecified hearing loss, bilateral H54.7 Unspecified visual loss R09.81 Nasal congestion R05 Cough R06.02 Shortness of breath K21.9 Gastro-esophageal reflux disease without esophagitis K30 Functional dyspepsia I63.9 Cerebral infarction, unspecified I69.828 Oth speech/lang deficits following oth cerebvasc disease G81.91 Hemiplegia, unspecified affecting right dominant side R26.89 Other abnormalities of gait and mobility Office Visit 11/27/2015 2:15p [facility] JoneShira sanders E11.65 Type 2 diabetes Jasper Rodriguez mellitus with hyperglycemia J45.909 Unspecified asthma, uncomplicated J30.2 Other seasonal allergic rhinitis L20.9 Atopic dermatitis, unspecified E66.01 Morbid (severe) obesity due to excess calories Z98.84 Bariatric surgery status M25.569 Pain in unspecified knee M79.606 Pain in leg, unspecified M15.9 Polyosteoarthritis, unspecified R10.84 Generalized abdominal pain K59.00 Constipation, unspecified G47.00 Insomnia, unspecified H91.93 Unspecified hearing loss, bilateral H54.7 Unspecified visual loss R09.81 Nasal congestion R05 Cough R06.02 Shortness of breath K21.9 Gastro-esophageal reflux disease without esophagitis K30 Functional dyspepsia I63.9 Cerebral infarction, unspecified I69.828 Oth speech/lang deficits following oth cerebvasc disease G81.91 Hemiplegia, unspecified affecting right dominant side R26.89 Other abnormalities of gait and mobility Office Visit 10/30/2015 1:45p [facility] Shira Becerril E11.65 Type 2 diabetes Lucia Rodriguez. mellitus with hyperglycemia J45.909 Unspecified asthma, uncomplicated J30.2 Other seasonal allergic rhinitis L20.9 Atopic dermatitis, unspecified E66.01 Morbid (severe) obesity due to excess calories Z98.84 Bariatric surgery status M25.569 Pain in unspecified knee M79.606 Pain in leg, unspecified M15.9 Polyosteoarthritis, unspecified R10.84 Generalized abdominal pain K59.00 Constipation, unspecified G47.00 Insomnia, unspecified H91.93 Unspecified hearing loss, bilateral H54.7 Unspecified visual loss R09.81 Nasal congestion R05 Cough R06.02 Shortness of breath K21.9 Gastro-esophageal reflux disease without esophagitis K30 Functional dyspepsia I63.9 Cerebral infarction, unspecified I69.828 Oth speech/lang deficits following oth cerebvasc disease G81.91 Hemiplegia, unspecified affecting right dominant side R26.89 Other abnormalities of gait and mobility Office Visit 10/04/2015 11:15a [facility] Shira Becerril E11.65 Type 2 diabetes Jasper Rodriguez mellitus with hyperglycemia J45.909 Unspecified asthma, uncomplicated J30.2 Other seasonal allergic rhinitis L20.9 Atopic dermatitis, unspecified E66.01 Morbid (severe) obesity due to excess calories Z98.84 Bariatric surgery status M25.569 Pain in unspecified knee M79.606 Pain in leg, unspecified M15.9 Polyosteoarthritis, unspecified R10.84 Generalized abdominal pain K59.00 Constipation, unspecified G47.00 Insomnia, unspecified H91.93 Unspecified hearing loss, bilateral H54.7 Unspecified visual loss R09.81 Nasal congestion R05 Cough R06.02 Shortness of breath K21.9 Gastro-esophageal reflux disease without esophagitis K30 Functional dyspepsia I63.9 Cerebral infarction, unspecified I69.828 Oth speech/lang deficits following oth cerebvasc disease G81.91 Hemiplegia, unspecified affecting right dominant side R26.89 Other abnormalities of gait and mobility Office Visit 09/27/2015 9:45a [facility] JoneShira sanders E11.65 Type 2 diabetes Jasper Rodriguez mellitus with hyperglycemia J45.909 Unspecified asthma, uncomplicated J30.2 Other seasonal allergic rhinitis L20.9 Atopic dermatitis, unspecified E66.01 Morbid (severe) obesity due to excess calories Z98.84 Bariatric surgery status M25.569 Pain in unspecified knee M79.606 Pain in leg, unspecified M15.9 Polyosteoarthritis, unspecified R10.84 Generalized abdominal pain K59.00 Constipation, unspecified G47.00 Insomnia, unspecified H91.93 Unspecified hearing loss, bilateral H54.7 Unspecified visual loss R09.81 Nasal congestion R05 Cough R06.02 Shortness of breath K21.9 Gastro-esophageal reflux disease without esophagitis K30 Functional dyspepsia I63.9 Cerebral infarction, unspecified I69.828 Oth speech/lang deficits following oth cerebvasc disease G81.91 Hemiplegia, unspecified affecting right dominant side R26.89 Other abnormalities of gait and mobility Office [facility] 09/04/2015 [facility] Jasper Rodriguez mellitus with hyperglycemia J45.909 Unspecified asthma, uncomplicated J30.2 Other seasonal allergic rhinitis L20.9 Atopic dermatitis, unspecified E66.01 Morbid (severe) obesity due to excess calories Z98.84 Bariatric surgery status M25.569 Pain in unspecified knee M79.606 Pain in leg, unspecified M15.9 Polyosteoarthritis, unspecified R10.84 Generalized abdominal pain K59.00 Constipation, unspecified G47.00 Insomnia, unspecified H91.93 Unspecified hearing loss, bilateral H54.7 Unspecified visual loss R09.81 Nasal congestion R05 Cough R06.02 Shortness of breath K21.9 Gastro-esophageal reflux disease without esophagitis K30 Functional dyspepsia I63.9 Cerebral infarction, unspecified I69.828 Oth speech/lang deficits following oth cerebvasc disease G81.91 Hemiplegia, unspecified affecting right dominant side R26.89 Other abnormalities of gait and mobility Office Visit 08/07/2015 1:45p [facility] JoneRemigio sandersgraham E11.65 Type 2 diabetes Jasper Rodriguez mellitus with hyperglycemia J45.909 Unspecified asthma, uncomplicated J30.2 Other seasonal allergic rhinitis L20.9 Atopic dermatitis, unspecified E66.01 Morbid (severe) obesity due to excess calories Z98.84 Bariatric surgery status M25.569 Pain in unspecified knee M79.606 Pain in leg, unspecified M15.9 Polyosteoarthritis, unspecified R10.84 Generalized abdominal pain K59.00 Constipation, unspecified G47.00 Insomnia, unspecified H91.93 Unspecified hearing loss, bilateral H54.7 Unspecified visual loss R09.81 Nasal congestion R05 Cough R06.02 Shortness of breath K21.9 Gastro-esophageal reflux disease without esophagitis K30 Functional dyspepsia I63.9 Cerebral infarction, unspecified I69.828 Oth speech/lang deficits following oth cerebvasc disease G81.91 Hemiplegia, unspecified affecting right dominant side R26.89 Other abnormalities of gait and mobility Office Visit 06/25/2015 10:15a [facility] JoneRemigio sandersgraham I69.828 Oth speech/lang Jasper Rodriguez deficits following oth cerebvasc disease I63.9 Cerebral infarction, unspecified E11.65 Type 2 diabetes mellitus with hyperglycemia J45.909 Unspecified asthma, uncomplicated J30.2 Other seasonal allergic rhinitis L20.9 Atopic dermatitis, unspecified E66.01 Morbid (severe) obesity due to excess calories Z98.84 Bariatric surgery status M25.569 Pain in unspecified knee M79.606 Pain in leg, unspecified M15.9 Polyosteoarthritis, unspecified R26.89 Other abnormalities of gait and mobility R10.84 Generalized abdominal pain K59.00 Constipation, unspecified G47.00 Insomnia, unspecified H91.93 Unspecified hearing loss, bilateral H54.7 Unspecified visual loss R09.81 Nasal congestion R05 Cough R06.02 Shortness of breath K21.9 Gastro-esophageal reflux disease without esophagitis K30 Functional dyspepsia Office Visit 06/07/2015 1:45p [facility] E11.65 Type 2 diabetes M., M.D. mellitus with hyperglycemia J45.909 Unspecified asthma, uncomplicated J30.2 Other seasonal allergic rhinitis L20.9 Atopic dermatitis, unspecified E66.01 Morbid (severe) obesity due to excess calories Z98.84 Bariatric surgery status M25.569 Pain in unspecified knee M79.606 Pain in leg, unspecified M15.9 Polyosteoarthritis, unspecified R26.89 Other abnormalities of gait and mobility R10.84 Generalized abdominal pain K59.00 Constipation, unspecified G47.00 Insomnia, unspecified H91.93 Unspecified hearing loss, bilateral H54.7 Unspecified visual loss R09.81 Nasal congestion R05 Cough R06.02 Shortness of breath K21.9 Gastro-esophageal reflux disease without esophagitis K30 Functional dyspepsia Office Visit 05/29/2015 3:00p [facility].65 Type 2 diabetes Katia., M.Graham. mellitus with hyperglycemia J45.909 Unspecified asthma, uncomplicated J30.2 Other seasonal allergic rhinitis L20.9 Atopic dermatitis, unspecified E66.01 Morbid (severe) obesity due to excess calories Z98.84 Bariatric surgery status M25.569 Pain in unspecified knee M79.606 Pain in leg, unspecified M15.9 Polyosteoarthritis, unspecified R26.89 Other abnormalities of gait and mobility R10.84 Generalized abdominal pain K59.00 Constipation, unspecified G47.00 Insomnia, unspecified H91.93 Unspecified hearing loss, bilateral H54.7 Unspecified visual loss R09.81 Nasal congestion R05 Cough R06.02 Shortness of breath K21.9 Gastro-esophageal reflux disease without esophagitis K30 Functional dyspepsia Office Visit 05/14/2015 2:30p [facility] E11.65 Type 2 diabetes M., M.D. mellitus with hyperglycemia J45.909 Unspecified asthma, uncomplicated J30.2 Other seasonal allergic rhinitis L20.9 Atopic dermatitis, unspecified E66.01 Morbid (severe) obesity due to excess calories Z98.84 Bariatric surgery status M25.569 Pain in unspecified knee M79.606 Pain in leg, unspecified M15.9 Polyosteoarthritis, unspecified R26.89 Other abnormalities of gait and mobility R10.84 Generalized abdominal pain K59.00 Constipation, unspecified G47.00 Insomnia, unspecified Z00.01 Encounter for general adult medical exam w abnormal findings Z23 Encounter for immunization H91.93 Unspecified hearing loss, bilateral H54.7 Unspecified visual loss R09.81 Nasal congestion R05 Cough R06.02 Shortness of breath K21.9 Gastro-esophageal reflux disease without esophagitis K30 Functional dyspepsia Plan of Treatment 06/24/2018 - Shira Becerril M.D.E11.65 Type 2 diabetes mellitus with hyperglycemiaComments:DIET REVIEWED CONTINUE DIETWT LOSSFS qAC AND HS PRN F/U FBWJ45.909 Unspecified asthma, uncomplicatedComments:MDI / NEBULIZER TX PRN AVOID EXPOSURE TO SMOKING OR FUMES SMOKING [id number] Essential (primary) hypertensionComments:CHECK BP TIW ( PRN)DIET AND FLUID COUNSELING LOW SODIUM DIETWT LOSSF/U LABE78.2 Mixed hyperlipidemiaComments:DIET REVIEWED CONTINUE DIETWT LOSSF/U LAB FBWI63.9 Cerebral infarction, unspecifiedComments:OBSERVE CONTINUE WITH RX F/U WITH XAUVUMCRJD91.91 Hemiplegia, unspecified affecting right dominant sideComments:SAFETY CLEAR PATH @ HOMEAVOID USE OF LOOSE RUGSUSE CANE /WALKER NEEDEDPROVIDE ADEQUATE LIGHT @ HOMEUSE WELL FITTED SHOESCONSIDER USE OF REMOTE CALLING DEVICEARRANGE FOR REGURAL CHECK UP BY FAMILY RENOFERNANDO KYDOFTO16.89 Other abnormalities of gait and mobilityComments:SAFETY CLEAR PATH @ HOMEAVOID USE OF LOOSE RUGSUSE CANE / WALKER NEEDEDPROVIDE ADEQUATE LIGHT @ HOMEUSE WELL FITTED SHOESCONSIDER USE OF REMOTE CALLING DEVICEARRANGE FOR REGURAL CHECK UP BY FAMILY JORDENGAUTAMFERNANDO GRANADO XOIVEJE37.9 Urticaria, unspecifiedComments:SKIN CAREAVOID ITCHING/ SCRATCHING SKINLOTION PRN BENEDRYL/ ANTIHISTAMINE PRNR29.6 Repeated fallsComments:SAFETY CLEAR PATH @ HOMEAVOID USE OF LOOSE RUGSUSE CANE /WALKER NEEDEDPROVIDE ADEQUATE LIGHT @ HOMEUSE WELL FITTED SHOESCONSIDER USE OF REMOTE CALLING DEVICEARRANGE FOR REGURAL CHECK UP BY FAMILY MICHAELHELGAGAUTAM USE CANEK58.0 Irritable bowel syndrome with diarrheaComments:TYLENOL OR MOTRIN PRNINCREASE PO FLUIDF/U KPWXVYGDY27.0 Localized edemaComments:ELEVATE LE PRNELASTIC STOCKING / JOSE MIGUEL WRAP PRNF/U LAB GJSICRL02.02 Shortness of breathComments:NEB OR MDI AND /OR OXYGENINCREASE PO FLUIDRESTSMOKING [id number] Functional dyspepsiaComments:AVOID CAFFEINE, ETOH AND SPICY FOODSTUMS OR MYLANTA PRN CALL WITH PROBLEMS OR CONCERNSSMOKING XMOMUWQNJP22.81 Nasal congestionComments:INCREASE PO FLUIDTYLENOL OR MOTRIN PRNREST USE ANTIHISTAMINE PRN SMOKING CESSATION QUQSNHDTGZKJ13.9 Gastro-esophageal reflux disease without esophagitisComments:AVOID CAFFEINE, ETOH AND SPICY FOODSTUMS OR MYLANTA PRN CALL WITH PROBLEMS OR CONCERNSSMOKING HIGYSJGWQV83.7 Unspecified visual lossComments:EELEFLNS29.93 Unspecified hearing loss, bilateralComments: OBSERVE SMOKING UYOTGJFILV10.00 Constipation, unspecifiedComments:MOM OR MIRALAX PRNHIGH FIBER DIETINCREASE PO ZSVZSJ00.84 Generalized abdominal painComments:TYLENOL OR MOTRIN PRNINCREASE PO FLUIDLAXATIVE PRN F/U DIRECTEDF /U VPSMABRVH89.9 Polyosteoarthritis, unspecifiedComments:EXERCISE/HEAT/ MESSAGETYLENOL OR MOTRIN PRNAVOID HEAVY LIFTINGWT LOSS DUR DDLDVUZW37.84 Bariatric surgery statusComments:F/U WITH SURGERYF/U DIET [id number] Insomnia, unspecifiedComments:COUNCELLING AND REASSURANCE RELAXATION TECHNIQUES DISCUSSED COUNSELED RE: STRESSORS IN LIFE TYLENOLPM OR MOTRIN PM PRNE66.01 Morbid (severe) obesity due to excess caloriesComments:WT LOSS COUNCELLINGEXERCISEDIET PXWIARXPVMNA41.2 Other seasonal allergic rhinitisComments:INCREASE PO FLUID USE ANTIHISTAMINE PRN SECOND HAND SMOKING AVOIDANCE SMOKING CESSATION PGGMTXRCUSPZ74.569 Pain in unspecified kneeComments:EXERCISE/HEAT /MESSAGEAVOID HEAVY LIFTING WT LOSSTYLENOL OR MOTRIN PRN DUR LVFIHFML17.9 Atopic dermatitis, unspecifiedComments:SKIN CARE INSTRUCTIONS LOTION OR BABY OIL 2-3 APPLICATION PER DAYUSE MOISTURIZING SOAPAVOID PROLONGED WATER EXPOSUREAVOID USING HOT WATER IN TLMFJOP96.5 Neoplasm of uncertain behavior of skinComments:C/O ULCER R EAR RESOLVED S/P TX BY DERMATOLOGY AND TO F/U PRNK25.7 Chronic gastric ulcer without hemorrhage or perforationComments:AVOID CAFFEINE, ETOH AND SPICY FOODSTUMS OR MYLANTA PRN CALL WITH PROBLEMS OR CONCERNASA D/CN20.0 Calculus of kidneyComments:STABLE F/U WITH UROLOGY 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
[2018-06-30 14:11] VITALS: BP 146/53
--- NOTE | 2018-06-30 14:52 | UC ---
Abdominal Pain Female HPI - HPI Summary HPI Summary: Patient 77-year-old male presents to urgent care with his . Patient with approximately one week of dysuria frequency and in urine nation burning. Patient denies any pain is penis or testicles. Patient denies any lesions. Patient has any discharge. Patient states a UTI approximately 6 weeks ago. Patient was treated by his PCP. Patient states he did not give a urine sample he was just given a course of antibiotic for 3 days. Patient states he felt better until this past week. Patient denies nausea or vomiting. Patient has had a history of renal stones states he's got no back pain. No hematuria. Patient's medications reviewed this visit. Patient is not immunocompromised. - History of Current Complaint Chief Complaint: UCGU Stated Complaint: URINARY Time Seen by Provider: 06/30/18 14:32 Hx Obtained From: Patient, Family/Fruit Trimmer, Medical Records Onset/Duration: Gradual Onset Timing: Constant Severity Initially: Mild Severity Currently: Mild - with urination only Pain Intensity: 0 Allergies/Adverse Reactions: Allergies Allergy/AdvReac Type Severity Reaction Status Date / Time No Known Allergies Allergy Verified 06/30/18 14:04 Home Medications: Home Medications Atorvastatin* [Lipitor*] 80 mg PO DAILY 06/30/18 [History Confirmed 06/30/18] Cranberry Fruit Extract [Hm Cranberry Ultra Streng] 1,000 mg PO BID 06/30/18 [ History Confirmed 06/30/18] Furosemide TAB* [Lasix TAB*] 20 mg PO DAILY PRN 06/30/18 [History Confirmed ] Hydrocodone/Acetaminophen [Hydrocodone/Acetaminophen 10-325 mg] 1 tab PO BID PRN MDD 2 06/30/18 [History Confirmed 06/30/18] Omeprazole CAP* [Prilosec CAP* 20 MG] 20 mg PO BID 06/30/18 [History Confirmed 06/30/18] Zolpidem TAB* [Ambien TAB*] 5 mg PO BEDTIME 06/30/18 [History Confirmed 06/30/18 ] PMH/Surg Hx/FS Hx/Imm Hx Previously Healthy: Yes - Surgical History Surgical History: Yes Surgery Procedure, Year, and Place: gastric bypass in 2007 - Family History Known Family History: Positive: Diabetes - Social History Occupation: Retired Lives: With Family Alcohol Use: Rare Substance Use Type: None Smoking Status (MU): Current Some Day Smoker Type: Cigars When Did the Patient Quit Smoking/Using Tobacco: quit chewing one month ago Household Exposure Type: Cigars - Immunization History Most Recent Influenza Vaccination: 2017 Most Recent Pneumonia Vaccination: 2012 Review of Systems All Other Systems Reviewed And Are Negative: Yes Constitutional: Positive: Negative Genitourinary: Positive: Dysuria, Frequency, Urgency. Negative: Hematuria, Vaginal/Penile Discharge, Vaginal/Penile Pain Is Patient Immunocompromised?: No Physical Exam - Summary Physical Exam Summary: Vital Signs Reviewed: Yes A+Ox3, no distress Eyes: Conjunctiva Clear, ENT: Hearing grossly normal, MMmoist Neck: Positive: Supple Respiratory: Positive: No respiratory distress, No accessory muscle use + CTA throughout no w/r Cardiovascular: RRR nl s1, s2 no m/r CBT <2 sec abd soft + BS nt/nd no guarding, no distension, no CVA b/l Musculoskeletal Exam: DAVIS x 4 without difficulty Strength Intact, ROM Intact Neurological: Positive: Alert, + sensation throughout Psychological: Positive: Normal Response To Family Skin: Positive: no rash, no ecchymosis Triage Information Reviewed: Yes Vital Signs: Initial Vital Signs Temp 97.9 F 06/30/18 14:02 Pulse 54 06/30/18 14:02 Resp 18 06/30/18 14:02 BP 146/53 06/30/18 14:02 Pulse Ox 99 06/30/18 14:02 Abd Pain Female Course/Dx - Course Course Of Treatment: Patient presents to urgent care with 5 days of progressive dysuria and urine earning. Patient is hematuria. Patient with UTI 6 weeks ago and states this feels similar. Patient without nausea vomiting. No fever no back pain. Patient's urinalysis consistent with UTI. Review culture from the past. We'll start patient on Keflex. We'll culture urine. Encourage fluids. Patient's previously been seen by urology and other comfortable renal stones. Recommend patient follow-up if he keeps having recurrent UTIs otherwise to recheck with PCP next week to make returns clear. Patient comfortable in agreement with plan. Questions answered. Pt with elevated BP - h/o same - Differential Dx/Diagnosis Provider Diagnosis: UTI (urinary tract infection) Discharge - Sign-Out/Discharge Documenting (check all that apply): Patient Departure All imaging exams completed and their final reports reviewed: No Studies - Discharge Plan Condition: Stable Disposition: HOME Prescriptions: Cephalexin CAP* [Keflex 500 CAP*] 500 mg PO BID #14 cap Patient Education Materials: Urinary Tract Infection in Men (ED) Referrals: Shira Becerril MD [Primary Care Provider] - Adelso Vences MD [Medical Doctor] - If Needed Additional Instructions: - stay well hydrated - drink plenty of non-alcoholic, non caffinated beverages - your urine will be further tested - if you require any changes to your treatment, we will contact you - this usually take 2-3 days - Take your antibiotics exactly as prescribed until gone - Okay to alternate ibuprofen (Advil, Motrin) and Tylenol every 3 hours for pain. Take with food -- Contact your primary doctor to arrange a follow-up appointment next week to make sure your infection has cleared. Contact your doctor or return with questions or concerns - Billing Disposition and Condition Condition: STABLE Disposition: Home
== END 2018-06-30 15:08 | disposition home or self-care (01) ==
LOC: UCCORT 12:51
DX: N39.0 Urinary tract infection, site not specified (principal); F17.290 Nicotine dependence, other tobacco product, uncomplicated
CPT/HCPCS: 81003; 87086; 99212; G0463

== ENCOUNTER 2018-11-17 14:47 | Emergency (ER) | payer MEDICARE ==
--- OUTSIDE RECORDS SUMMARY | 2018-11-17 15:04 | XMS REPORT | Continuity of Care Document ---
:1940 External Reference #:[id number] Author Name Shira Becerril M.D. Address [address] [place] [address] Care Team Providers Name Role Phone Shira Becerril MD Care Team Information Appliance Sales Associate Unavailable Payers Date Identification Numbers Payment Provider Subscriber Effective: Policy Number: [id number] Medicare Blue Zach Joseph 2017 Ppo PayID: [id number] [address] [address] [place] [address] Advance Directives Description No Information Available Problems Active Problems Provider Date Type II diabetes mellitus uncontrolled Shira Becerril M.D. Onset: 2014 Asthma without status asthmaticus Shira Becerril M.D. Onset: 05/14/2015 Allergic rhinitis Shira Becerril M.D. Onset: 05/14/2015 Atopic dermatitis Shira Becerril M.D. Onset: 05/14/2015 Morbid obesity Shira Becerril M.D. Onset: 05/14/2015 Bariatric operative procedure Shira Becerril M.D. Onset: 05/14/2015 Knee pain Shira Becerril M.D. Onset: 05/14/2015 Pain in limb Shira Becerril M.D. Onset: 05/14/2015 Osteoarthritis Shira Becerril M.D. Onset: 05/14/2015 Abnormal gait Shira Becerril M.D. Onset: 05/14/2015 Constipation Shira Becerril M.D. Onset: 05/14/2015 Insomnia Shira Becerril M.D. Onset: 05/14/2015 Hearing loss Shira Becerril M.D. Onset: 05/14/2015 Abnormal gait Shira Becerril M.D. Onset: 08/07/2015 Family History Date Family Member(s) Observation Comments Father due to Age Unknown () [...] (10 or fewer cig/day) Smoking Status Reviewed: 08/18/18 Light tobacco smoker (10 or fewer cig/day) Tobacco Use Start: Unknown Current Smokeless Tobacco User, Uses Once Daily ETOH Use Rarely consumes alcohol Tobacco Use Start: Unknown Patient is a current 5 OR 6 CIGARS A DAY, NO smoker, smokes every day CIGARETTES Allergies, Adverse Reactions, Alerts Active Allergies Reaction Severity Comments Date Adhesives 05/14/2015 Medications Active Medications SIG Qnty Indications Ordering Provider Date Furosemide 1 by mouth every 90tabs R60.0 Shira Becerril, 10/21/2018 40mg Tablets day M.D. Cephalexin 1 tabs by mouth 60tabs N39.0 Shira Becerril, 09/23/2018 500mg twice a day M.D. Tablets Hydrocodone-Acetamino 1 tab by mouth 60tabs G81.91 Shira Becerril, 2017 phen twice a day as M.D. 10-325mg Tablets needed M79.606 M25.569 Acetaminophen 2 tab by mouth 180tabs M15.9 Shira Becerril, 02/24/2018 500mg Tablets three times a day M.D. Omeprazole Take 1 Capsule By 180caps K25.7 Shira Becerril, 09/22/[address] Mouth Twice Daily M.D. Nebulizer use as directed 1units R06.02 Shira Becerril, 08/19/2017 Device M.DVinicius J45.909 Nebulizer use with 3units R06.02 [facility] Kit/Tubing/Mouthpiece nebulizer every 4 M., M.D. Kit hours as needed J45.909 Ambien 1 tab by mouth every 30tabs G47.00 Shira Becerril, 08/19/2017 5mg Tablets night M.D. Albuterol Sulfate use with nebulizer q4 375ml J45.909 JoneShira sanders, hours as needed for M.D. (2.5mg/3ML) 0.083% cough/sob Nebulizer R06.02 Walker With Large dx: r26.89,g81.91 1units G81.91 Jone, emerita 10/04/2015 Wheels With Seat And Jasper Rodriguez Basket Atorvastatin Calcium 1 tab by mouth every 90tabs I63.9 Jone, emerita 2015 80mg day M., M.D. Tablets E78.2 Proventil HFA 2 unit by mouth 13.4gm R06.02 Shira Becerril, 05/14/2015 108(90Base) every 4 hours as M.D. mcg/Act Aerosol needed J45.909 Miralax 2 caps by mouth 1020gm K59.00 JoneShira taylor, 05/14/2015 3350NF Powder every day as needed M.D. Daily-James/Iron/Beta- Z98.84 Unknown Carotene Tablets History Medications Cephalexin 1 tabs by mouth 20tabs Shira Becerril 08/12/2018 - 500mg twice a day M., M.D. 08/18/2018 Tablets Cephalexin 1 tabs by mouth 20tabs JoneShira taylor 07/19/2018 - 500mg twice a day M., M.D. 07/29/2018 Tablets Cipro 1 tab by mouth 20tabs E11.65 JoneShira taylor 06/08/2018 - 500mg Tablets twice a day M., M.D. 06/18/2018 Cipro 1 tab by mouth 14tabs N39.0 [facility] 05/25/2018 - 500mg Tablets twice a day M., M.D. 05/31/2018 Hydrocodone-Acetamin 1 tab by mouth 60tabs M15.9 [facility] 02/24/2018 - ophen three times a day M., M.D. 03/25/2018 5-325mg Tablets as Needed 2 Hours After Tylenol Max Tylenol ALL Sources No More Than 4 G M79.606 M25.569 Back Brace use as directed for back pain G81.91 [facility], 2016 - m54,5,g81.91,m15.9 M.D. 08/06/2018 M15.9 M54.5 Cipro 1 tab by mouth 20tabs E11.65 [facility] 05/07/2017 - 500mg Tablets twice a day M., M.D. 05/17/2017 Trazodone HCL 1 tab by mouth 90tabs E11.65 [facility] 01/16/2017 - 100mg every night M., M.D. 08/19/2017 Tablets Hydroxyzine HCL 1 tab by mouth 30tabs L50.9 [facility] 01/02/2017 - 10mg every night as M., M.D. 05/06/2017 Tablets needed Ativan 1 tab by mouth 15tabs G47.00 [facility] 12/19/2016 - 1mg Tablets every night as M., M.D. 01/16/2017 needed Temazepam 1 cap by mouth 14caps E11.65 [facility] 12/19/2016 - 15mg Capsules every night M., M.D. 12/19/2016 Hydrocodone-Acetamino 1-2 tab by mouth 60tabs M15.9 [facility] 2016 - phen every 4 hours as M., M.D. 02/24/2018 10-325mg Tablets needed M79.606 M25.569 Cholestyramine 1 scoop by 378 K58.0 [facility] 11/20/2016 - 4GM/Dose mouth every day M., M.D. 05/06/2017 Powder as needed Amoxicillin 2 by mouth 40tabs D48.5 [facility] 09/19/2016 - 500mg Tablets twice a day M., M.D. 09/29/2016 Furosemide 1 tab by mouth 90tabs R60.0 [facility] 01/25/2016 - 20mg Tablets every day as M., M.D. 10/21/2018 needed Ativan 1 tab by mouth 30tabs E11.65 [facility] 09/27/2015 - 1mg Tablets every night as M., M.D. 12/19/2016 needed Mucinex 1 tab by mouth 60tabs R09.81 [facility] 09/27/2015 - 600mg Tablets ER twice a day as M., M.D. 05/06/2017 12HR needed Ambien 1 tab by mouth 30tabs G47.00 [facility] 09/04/2015 - 10mg Tablets every night as M., M.D. 09/27/2015 needed Ramipril 1 by mouth 90caps E11.65 [facility] 08/17/2015 - 2.5mg Capsules every day M., M.D. 05/06/2017 I63.9 I10 Hydrocodone-Acetaminophen 1-2 tab by 120tabs R10.84 [facility] 2014 - 7.5-325mg Tablets mouth every M., M.D. 12/19/2016 4 hours as needed No Active Medications Unknown 05/14/2015 - 05/14/2015 Albuterol Sulfate J45.909 Unknown - (2.5mg/3ML) 0.083% 12/28/2015 Nebulizer R06.02 D48.5 Ramipril 2.5mg Capsules Unknown - 2015 Cephalexin 500mg Unknown - 08/06/2015 Capsules Proair HFA 108(90Base) Unknown - 2015 mcg/Act Aerosol Polyethylene Glycol 3350 I63.9 Unknown - 07/06/2016 3350NF Powder K59.00 Hydrocodone-Acetaminophen Unknown - 08/06/2015 7.5-325mg Tablets Q-Pap 325mg Tablets E11.65 Unknown - 07/2016 I63.9 E78.2 Nortriptyline HCL 1 cap by mouth 30caps M79.606 Shira Becerril - 10mg every day Jasper Rodriguez 07/06/2016 Capsules M15.9 Atorvastatin Calcium Unknown - 08/17/2015 80mg Tablets Aspirin Ec Low Dose I63.9 Unknown - 09/22/2017 81mg Tablets E11.65 G81.91 Albuterol Sulfate Unknown - 05/06/2015 (2.5mg/3ML) 0.083% Nebulizer Albuterol Sulfate Unknown - 05/06/2015 (2.5mg/3ML) 0.083% Nebulizer Ramipril 2.5mg Capsules Unknown - 2014 Ramipril 2.5mg Capsules Unknown - 2014 Cephalexin 500mg Capsules Unknown - 07/2014 Cephalexin 500mg Capsules Unknown - 07/2014 Medications Administered in Office Medication SIG Qnty Indications Ordering Provider Date Admin Of Pneumovax Shira Becerril M.D. 05/14/2015 Injection Immunizations CPT Code Status Date Vaccine Reaction Lot # [id number] Given 04/22/2018 Flu Vaccine 3+Yrs Old(Fluzone) \\ [id number] Q2038 Given 02/26/2017 Flu Vaccine 3+Yrs Old(Fluzone) [id number] Q2038 Given 03/25/2016 Flu Vaccine 3+Yrs Old(Fluzone) [id number] Given 03/25/2016 Flu Vaccine [id number] Q2038 Given 05/14/2015 Flu Vaccine 3+Yrs Old(Fluzone) [id number] Given 05/14/2015 Pneumovax [id number] Given 05/14/2015 Flu Vaccine [id number] Vital Signs Date Vital Result Comment 10/21/2018 1:02pm BP Systolic 136 mmHg BP Diastolic 78 mmHg Height 64 inches 5'4" Weight 240.00 lb BMI (Body Mass Index) 41.2 kg/m2 Heart Rate 80 /min Respiratory Rate 16 /min 09/23/2018 1:22pm BP Systolic 132 mmHg BP Diastolic 64 mmHg Height 64 inches 5'4" Weight 230.00 lb BMI (Body Mass Index) 39.5 kg/m2 Heart Rate 56 /min Respiratory Rate 18 /min 08/19/2018 1:05pm BP Systolic 118 mmHg BP Diastolic 64 mmHg Height 64 inches 5'4" Weight 231.00 lb BMI (Body Mass Index) 39.6 kg/m2 Heart Rate 66 /min Respiratory Rate 16 /min 07/22/2018 12:46pm BP Systolic 130 mmHg BP Diastolic 68 mmHg Height 64 inches 5'4" Weight 224.00 lb BMI (Body Mass Index) 38.4 kg/m2 Heart Rate 63 /min Respiratory Rate 16 /min 06/24/2018 1:04pm BP Systolic 126 mmHg BP [...] Date Facility Test Result H/L Range Note Urine Culture And 07/19/2018 [facility] Urine SEE RESULT 1, 2 Sensitivities Culture BELOW Poc Urinalysis 07/19/2018 [facility] Poc Glucose, Negative Negative Urine Poc Bilirubin, Urine Negative Negative Poc Ketone, Urine Negative Negative Poc Specific [place], Urine 1.025 N 1.010-1.030 Poc Blood, Urine 2+ Abnormal Negative Poc pH, Urine 6.0 N 5-9 Poc Protein, Urine 2+ Abnormal Negative Poc Urobilinogen, Urine 0.2 Negative Poc Nitrite, Urine Negative Negative Poc Leukocytes, Urine 2+ Abnormal Negative Poc Color, Urine Yellow Poc Clarity, Urine Cloudy 3 Urine Culture And 06/30/2018 [facility] Urine Culture SEE RESULT 4 Sensitivities BELOW Poc Urinalysis 06/30/2018 [facility] Poc Glucose, Negative Negative Urine Poc Bilirubin, Urine Negative Negative Poc Ketone, Urine Negative Negative Poc Specific [place], Urine 1.020 N 1.010-1.030 Poc Blood, Urine 2+ Abnormal Negative Poc pH, Urine 5.5 N 5-9 Poc Protein, Urine 2+ Abnormal Negative Poc Urobilinogen, Urine 0.2 Negative Poc Nitrite, Urine Negative Negative Poc Leukocytes, Urine 2+ Abnormal Negative Poc Color, Urine Yellow Poc Clarity, Urine Cloudy 5 Ethyl 02/24/2018 [facility] Ethyl Positive Abnormal 500 6, 7 Glucuronide Glucuronide >2000 I <SEE NOTE> ng/mL PDF SEE IMAGE Laboratory test 02/24/2018 [facility] Cocaine Panel By Negative ng/mL N 50 8 finding LC/MS/MS Tramadol Negative ng/mL N 5 9 [id number] Negative ng/mL N 5 10 Gabapentin Negative ng/mL N 100 11 Zolpidem 22 Positive Cons <SEE NOTE> ng/mL N 10 12 Amphetamine Panel By 02/24/2018 [facility] Amphetamine Negative ng/mL N 50 LC/MS/MS Methamphetamine Negative ng/mL N 50 Mdma (Ecstasy) Negative ng/mL N 50 Mda Negative ng/ml N 50 Mdea Negative ng/mL N 50 13 Specimen Validity 02/24/2018 [facility] Creatinine, Urine 84 mg/ dL N >20 Panel Color BROWN Abnormal Yellow pH >9.0 Abnormal 5.0-8.0 Specific [place] 1.020 N 1.001-1.035 14 Opiates Panel By 02/24/2018 [facility] 6-Nicole (Heroin Negative ng/ mL N 5 LC/MS/MS Metabolite) Codeine Negative ng/mL N 50 Hydrocodone 2075 Positive Co <SEE NOTE> ng/mL N 50 15 Hydromorphone Negative Consist <SEE NOTE> ng/mL N 50 16 Morphine Negative ng/mL N 50 Norhydrocodone 1273 Positive Co <SEE NOTE> ng/mL N 50 17 Noroxycodone Negative ng/mL N 50 Noroxymorphone Negative ng/mL N 50 Oxycodone Negative ng/mL N 50 Oxymorphone Negative ng/mL N 50 18 Methadone Panel By 02/24/2018 [facility] Eddp Negative ng/mL N 10 LC/MS/MS Methadone Negative ng/mL N 10 19 Buprenorphine Panel By 02/24/2018 [facility] Buprenorphine Negative ng/mL N 5 LC/MS/MS Naloxone Negative ng/mL N 10 Norbuprenorphine Negative ng/mL N 5 20 Benzodiazepines 02/24/2018 [facility] 2-Hydroxyethylflurazepam Negative N 10 Panel [...] N 10 Temazepam Negative ng/mL N 10 21 Barbiturates Panel By 02/24/2018 [facility] Butalbital Negative ng/mL N 100 LC/MS/MS Pentobarbital Negative ng/mL N 100 Phenobarbital Negative ng/mL N 100 Secobarbital Negative ng/mL N 100 22 Antidepressants Panel 02/24/2018 [facility] Amitriptyline Negative ng/mL N 20 By LC/MS/MS Clomipramine Negative ng/mL N 20 Desipramine Negative ng/mL N 20 Doxepin Negative ng/mL N 20 Fluoxetine Negative ng/mL N 20 Imipramine Negative ng/mL N 20 Norclomipramine Negative ng/mL N 20 Nordoxepin Negative ng/mL N 20 Nortriptyline Negative ng/mL N 20 Sertraline Negative ng/mL N 20 Trimipramine Negative ng/mL N 20 23 Urine Drug [place] 02/24/2018 [facility] [id number] < pending> Ethyl Glucuronide <pending> Urine DRG SCR 02/24/2018 [facility] Amphetamine NEGATIVE N 1000 (12PNL-PM) Barbiturate NEGATIVE N 200 Benzodiazepine NEGATIVE N 200 Buprenorphine NEGATIVE N 15 Cannabinoid NEGATIVE N 50 Cocaine NEGATIVE N 300 Methadone NEGATIVE N 300 Opiate POSITIVE Abnormal 300 Oxycodone NEGATIVE N 300 Phencyclidine NEGATIVE N 25 24 Laboratory test 11/05/2017 [facility] Surgical Interface SEE RESULT 25, 26 finding Order BELOW Laboratory test 09/06/2017 [facility] Urine Culture And SEE RESULT 27 finding Sensitivities BELOW Urinalysis 09/06/2017 [facility] Urine Color Kelle Profile Urine Appearance Cloudy Urine Specific [place] 1.019 N 1.010-1.030 Urine pH 5.0 N [...] Urine Bacteria Absent Absent Laboratory test 09/06/2017 [facility] Stool Occult SEE RESULT 28 finding Blood, Screen BELOW Laboratory test 09/06/2017 [facility] Ammonia 20 ?mol/L N 16-53 finding CBC Auto Diff 08/19/2017 [facility] White Blood 7.8 10^3/uL N 3.5- 10. Count 8 Red Blood Count 4.17 10^6/uL N 4.0-5.4 [...] 0-2 Nucleated Red Blood Cells % 0 Comp Metabolic Panel 08/19/2017 [facility] Sodium 140 mmol/L N 133- 145 [...] Egfr Non- 59.9 >60 Egfr 77.0 >60 29 Laboratory test 08/19/2017 [facility] Hemoglobin A1c 4.8 % N 4.0-5.6 30 finding (Glyco HGB) TSH (Thyroid Stim Horm) 2.50 mcIU/mL N 0.34-5.60 31 Lipid Profile (Trig/Chol/HDL) 08/19/2017 [facility] Triglycerides 99 mg /dL 32 Cholesterol 80 mg/dL 33 HDL Cholesterol 32.7 mg/dL 34 LDL Cholesterol 28 mg/dL 35 CBC Auto Diff 05/07/2017 [facility] White Blood 12.7 10^3/uL High 3.5 [...] % 0 N Comp Metabolic Panel 05/07/2017 [facility] Sodium 140 mmol/L N 133- 145 [...] 38.1 N >60 Egfr 49.0 N >60 36 Laboratory test 05/07/2017 [facility] TSH (Thyroid 2.84 mcIU/mL N 0.34-5.60 37 finding Stim Horm) Hemoglobin A1c (Glyco HGB) 5.0 % N 4.0-5.6 38 Lipid Profile 05/07/2017 [facility] Triglycerides 114 mg/dL N 39 (Trig/Chol/HDL) Cholesterol 88 mg/dL N 40 HDL Cholesterol 30.4 mg/dL N 41 LDL Cholesterol 35 mg/dL N 42 Laboratory test finding 05/07/2017 [facility] Vitamin B12 694 pg/mL N 180-914 43 Folic Acid (Folate) 16.74 ng/mL N >3.99 44 Vitamin D Total 25(Oh) 26.4 ng/mL N 20-50 45 Erythrocyte Sed Rate 19 mm/Hr N 0-40 46 Lipid Profile 01/16/2017 [facility] Triglycerides 126 mg/dL N 47 (Trig/Chol/HDL) Cholesterol 94 mg/dL N 48 HDL Cholesterol 36.4 mg/dL N 49 LDL Cholesterol 32 mg/dL N 50 Laboratory test 01/16/2017 [facility] Hemoglobin A1c 4.9 % N Less than 51 finding (Glyco HGB) 6.0 Vitamin D Total 25(Oh) 29.2 ng/mL Low 30-50 52 Vitamin B12 848 pg/mL N 180-914 53 TSH (Thyroid Stim Horm) 1.74 mcIU/mL N 0.34-5.60 54 Comp Metabolic Panel 01/16/2017 [facility] Sodium 141 mmol/L N 133- 145 [...] 61.8 N >60 Egfr 79.5 N >60 55 CBC Auto Diff 01/16/2017 [facility] White Blood Count 6.7 10^3/uL N [...] Nucleated Red Blood Cells % 0.1 N Laboratory test finding 01/16/2017 [facility] Amylase 36 U/L N 29- 103 56 Lipase 27 U/L N 11.0-82.0 57 CBC Auto Diff 05/23/2016 [facility] White Blood Count 9.0 10^3/uL N [...] Cells % 0.1 N Comp Metabolic Panel 05/23/2016 [facility] Sodium 142 mmol/L N 133- 145 Potassium 4.7 mmol/L N 3.5-5.0 Chloride 107 [...] 61.4 N >60 Egfr 78.9 N >60 58 Laboratory test 05/23/2016 [facility] TSH (Thyroid 3.38 mcIU/mL N 0.34-5.60 59 finding Stim Horm) Laboratory test 05/23/2016 [facility] Hemoglobin A1c 5.1 % N Less than 6.0 60 finding (Glyco HGB) Vitamin B12 621 pg/mL N 180-914 61 Vitamin D Total 25(Oh) 27.2 ng/mL Low 30-50 62 Lipid Profile (Trig/Chol/HDL) 05/23/2016 [facility] Triglycerides 89 mg /dL N 63 Cholesterol 76 mg/dL N 64 HDL Cholesterol 35.8 mg/dL N 65 LDL Cholesterol 22 mg/dL N 66 Urine Screen 07/03/2015 [facility] RFX Micro + See Note 67 Culture II Urinalysis With 07/03/2015 [facility] Urine Color YELLOW Yellow Microscopic Urine Clarity CLEAR Clear Urine Glucose - Dipstick NEGATIVE mg/dL Negative Urine Bilirubin - Dipstick NEGATIVE Negative Urine Ketone NEGATIVE mg/dL Negative Urine Specific [place] 1.020 1.010-1.030 Urine Blood NEGATIVE Negative Urine PH 6.0 Low 6.5-7.5 Urine Protein - Dipstick 100 mg/dL High Negative Urine Urobilinogen - Dipstick 0.2 E.U./dL 0.2-1.0 Urine Nitrite - Dipstick NEGATIVE Negative Urine Leuk Esterase NEGATIVE Negative Urine RBC 0-2 rbc/hpf 0-2 Urine WBC 0-2 wbc/hpf 0-7 Urine Epithelial Cells FEW NONESEEN/lpf Urine Bacteria FEW NONESEEN Urine Amorph Sediment SMALL Negative Laboratory test finding 07/01/2015 [facility] C. Difficile Toxin A/B See Note 68 Smear For WBC'S 07/01/2015 [facility] Smear For WBC'S NONE SEEN Smear Source: STOOL Basic Metabolic Panel 06/30/2015 [facility] Glucose 94 mg/dL 74-106 BUN 21 mg/dL High 7-18 Creatinine 0.9 mg/dL 0.6-1.3 Glom Filtration Rate, Estimate >60 mL/min >60 If >60 mL/min >60 69 BUN/Creat 23.3 ratio Sodium 139 mmol/L 136-145 Potassium 4.5 mmol/L 3.5-5.1 Chloride 103 mmol/L 98-107 Carbon Dioxide 29 mmol/L 21-32 Anion Gap 7 mEq/L Low 8-16 Calcium 8.8 mg/dL 8.5-10.1 Laboratory test finding 06/30/2015 [facility] Magnesium 2.1 mg/dL 1.8-2.4 LDL Cholesterol Profile 06/30/2015 [facility] Cholesterol 79 mg/dL <200 70 Triglycerides 116 mg/dL <150 71 HDL Cholesterol 32 mg/dL Low >40 72 LDL-Cholesterol 24 mg/dL < 100 73 Basic Metabolic Panel 06/29/2015 [facility] Glucose 90 mg/dL 74-106 BUN 22 mg/dL High 7-18 Creatinine 1.2 mg/dL 0.6-1.3 Glom Filtration Rate, Estimate >60 mL/min >60 If >60 mL/min >60 74 BUN/Creat 18.3 ratio Sodium 138 mmol/L 136-145 Potassium 4.3 mmol/L 3.5-5.1 Chloride 104 mmol/L 98-107 Carbon Dioxide 30 mmol/L 21-32 Anion Gap 4 mEq/L Low 8-16 Calcium 7.6 mg/dL Low 8.5-10.1 Laboratory test finding 06/29/2015 [facility] Magnesium 1.9 mg/dL 1.8-2.4 C-Reactive Protein,Quant 63.3 mg/L High <3.0 CBC 06/29/2015 [facility] White Blood Count 5.6 K/uL 3.4-10.5 Red Blood Count 4.28 M/uL 4.20-5.80 Hemoglobin 13.5 gm/dL 12.8-17.0 Hematocrit 40.1 % 38.0-48.0 Mean Cell Volume 93.7 fl 80.0-96.0 Mean Corpuscular HGB 31.5 pg 27.0-33.0 Mean Corpuscular HGB Conc 33.7 g/dL 31.7-36.0 Platelet Count 169 K/uL 150-400 Red Cell Distri Width %CV 12.4 % 11.6-15.8 Mean Platelet Volume 11.3 fL High 6.6-10.6 Laboratory test finding 06/29/2015 [facility] Sedimentation Rate 47 mm/hr High 0-20 Basic Metabolic Panel 06/27/2015 [facility] Glucose 99 mg/dL 74-106 BUN 14 mg/dL 7-18 Creatinine 0.9 mg/dL 0.6-1.3 Glom Filtration Rate, Estimate >60 mL/min >60 If >60 mL/min >60 75 BUN/Creat 15.5 ratio Sodium 141 mmol/L 136-145 Potassium 3.7 mmol/L 3.5-5.1 Chloride 105 mmol/L 98-107 Carbon Dioxide 26 mmol/L 21-32 Anion Gap 10 mEq/L 8-16 Calcium 8.8 mg/dL 8.5-10.1 CBS W/Automated Diff 06/27/2015 [facility] White Blood Count 7.8 K/uL 3.4- 10.5 [...] % 33.0-73.0 Lymph % 18.7 % 17.0-56.0 [place] % 7.2 % 0.0-10.0 Eo% 3.2 % 0.0-5.0 Bas% 0.1 % 0.1-1.0 Neut# 5.52 K/uL 1.8-7.0 Lymph # 1.46 K/uL Low 1.8-7.0 [place] # 0.56 K/uL 0.0-0.8 Eos # 0.25 K/uL 0.0-0.5 Baso # 0.01 K/uL Low 0.1-0.2 Laboratory test 06/26/2015 [facility] C. Difficile Toxin See Note 76 finding A/B Basic Metabolic Panel 06/26/2015 [facility] Glucose 113 mg/dL High 74-106 BUN 13 mg/dL 7-18 Creatinine 0.9 mg/dL 0.6-1.3 Glom Filtration Rate, Estimate >60 mL/min >60 If >60 mL/min >60 77 BUN/Creat 14.4 ratio Sodium 142 mmol/L 136-145 Potassium 3.8 mmol/L 3.5-5.1 Chloride 106 mmol/L 98-107 Carbon Dioxide 26 mmol/L 21-32 Anion Gap 10 mEq/L 8-16 Calcium 8.9 mg/dL 8.5-10.1 CBS W/Automated Diff 06/26/2015 [facility] White Blood Count 6.9 K/uL 3.4- 10.5 [...] % 33.0-73.0 Lymph % 17.2 % 17.0-56.0 [place] % 7.7 % 0.0-10.0 Eo% 2.6 % 0.0-5.0 Bas% 0.3 % 0.1-1.0 Neut# 4.99 K/uL 1.8-7.0 Lymph # 1.19 K/uL Low 1.8-7.0 [place] # 0.53 K/uL 0.0-0.8 Eos # 0.18 K/uL 0.0-0.5 Baso # 0.02 K/uL Low 0.1-0.2 Comprehensive Metabolic Panel 06/25/2015 [facility] Glucose 105 mg/dL 74- 106 BUN 13 mg/dL 7-18 Creatinine 1.0 mg/dL 0.6-1.3 Glom Filtration Rate, Estimate >60 mL/min >60 If >60 mL/min >60 78 BUN/Creat 13.0 ratio Sodium 142 mmol/L 136-145 Potassium 4.6 mmol/L 3.5-5.1 Chloride 105 mmol/L 98-107 Carbon Dioxide 30 mmol/L 21-32 Anion Gap 7 mEq/L Low 8-16 Calcium 9.0 mg/dL 8.5-10.1 Total Protein 7.0 g/dL 6.4-8.2 Albumin 3.4 g/dL 3.4-5.0 Globulin 3.6 g/dL 1.9-4.3 Alb/Glob 0.9 ratio Bilirubin,Total 0.6 mg/dL 0.2-1.0 Sgot/Ast 15 U/L 15-37 SGPT/Alt 17 U/L 12-78 Alkaline Phosphatase 68 U/L 45-117 Laboratory test finding 06/25/2015 [facility] CK 80 U/L 39-308 Troponin-I < 0.015 ng/mL 79 CBS W/Automated Diff 06/25/2015 [facility] White Blood Count 6.9 K/uL 3.4- 10.5 [...] % 33.0-73.0 Lymph % 19.3 % 17.0-56.0 [place] % 9.5 % 0.0-10.0 Eo% 2.8 % 0.0-5.0 Bas% 0.3 % 0.1-1.0 Neut# 4.67 K/uL 1.8-7.0 Lymph # 1.32 K/uL Low 1.8-7.0 [place] # 0.65 K/uL 0.0-0.8 Eos # 0.19 K/uL 0.0-0.5 Baso # 0.02 K/uL Low 0.1-0.2 Protime 06/25/2015 [facility] Protime 13.2 seconds 12.1-14.9 Inr 1.0 0.9-1.1 80 Laboratory test 06/25/2015 [facility] Act Partial 42.5 seconds High 23.9- 34.3 81 finding Thrombo Time Urinalysis With 06/25/2015 [facility] Urine Color YELLOW Yellow Microscopic Urine Clarity CLEAR Clear Urine Glucose - Dipstick NEGATIVE mg/dL Negative Urine Bilirubin - Dipstick NEGATIVE Negative Urine Ketone NEGATIVE mg/dL Negative Urine Specific [place] 1.025 1.010-1.030 Urine Blood NEGATIVE Negative Urine [...] NONESEEN Urine Amorph Sediment VERY FEW Negative Urine Screen 06/25/2015 [facility]a RFX Micro + See Note 82 Culture II Laboratory test 05/14/2015 [facility] Magnesium 1.9 mg/dL 1.8-2.4 finding Vitamin B12 And Folate 05/14/2015 [facility] Vitamin B12 449 pg/mL 193- 986 Folic Acid 10.8 ng/mL 3.1-17.5 LDL Cholesterol Profile 05/14/2015 [facility] Cholesterol 131 mg/dL <200 83 Triglycerides 120 mg/dL <150 84 HDL Cholesterol 32 mg/dL Low >40 85 LDL-Cholesterol 75 mg/dL < 100 86 Glycohemoglobin A1c 05/14/2015 [facility] Glycohemoglobin (A1c) 5.4 % 4.2- 6.3 87 eAG 108 mg/dL Laboratory test finding 05/14/2015 [facility] Sedimentation Rate 22 mm/hr High 0-20 Lipase 331 U/L 73-393 Amylase 71 U/L 25-115 Thyroid Stim Hormone 2.01 uIU/mL 0.36-3.74 Comprehensive Metabolic Panel 05/14/2015 [facility] Glucose 73 mg/dL Low 74 -106 BUN 30 mg/dL High 7-18 Creatinine 1.2 mg/dL 0.6-1.3 Glom Filtration Rate, Estimate >60 mL/min >60 If >60 mL/min >60 88 BUN/Creat 25.0 ratio Sodium 142 mmol/L 136-145 [...] U/L 12-78 Alkaline Phosphatase 63 U/L 45-117 CBC W/Automated Diff 05/14/2015 [facility] White Blood Count 7.1 K/uL 3.4- 10.5 [...] % 33.0-73.0 Lymph % 19.8 % 17.0-56.0 [place] % 7.5 % 0.0-10.0 Eo% 4.1 % 0.0-5.0 Bas% 0.3 % 0.1-1.0 Neut# 4.84 K/uL 1.8-7.0 Lymph # 1.40 K/uL Low 1.8-7.0 [place] # 0.53 K/uL 0.0-0.8 Eos # 0.29 K/uL 0.0-0.5 Baso # 0.02 K/uL Low 0.1-0.2 1 [id number] 2 SEE RESULT BELOW Name: ZACH JOSEPH : [address]: Rhett Amado MD Acct: [id number] Unit: [id number] AGE: 77 Location: [facility] Re07/19/18 SEX: M Status: DEP ER SPEC: [id number] ALLY: 07/19/18-1505 [facility] DR: Rhett Amado MD REQ: [id number] RECD: 07/19/18 STATUS: CHRIS [facility]IL[facility] DR: Shira Becerril MD [facility] _ SOURCE: URINE SPDESC: ORDERED: Urine Culture COMMENTS: [id number] Procedure Result Reported Site Urine Culture Final 07/20/18- 1524 ML Organism 1 STREP GROUP B [place] Count 10-25,000 (Moderate) CFU/ML Organism 2 NORMAL [place] Count 1-10,000 (Few) CFU/ML Susceptibility testing of penicillins and other B-lactams approved by FDA for treatment of Streptococcus pyogenes (Group A Strep) and Streptococcus agalactiae (Group B Strep) is not necessary for clinical purposes and need not be done routinely, since as with vancomycin, resistant strains have not been recognized. (CLSI R342-Q45;p.66) Positive isolates will be saved for one week. Please call the Microbiology Laboratory if further susceptibility testing is needed. * ML - Main Lab . END OF REPORT DEPARTMENT OF PATHOLOGY, [address] [place] [address] Minor Xavier M.D. Director [facility] # [id number] 3 Park Worker: [id number] SEE RESULT BELOW Name: ZACH JOSEPH : [address]: Laura Pina MD Acct: [id number] Unit: [id number] AGE: 77 Location: [facility] Re06/30/18 SEX: M Status: DEP ER SPEC: [id number] ALLY: 06/30/18-8069 [facility] DR: Laura Pina MD REQ: [id number] RECD: 06/30/18 STATUS: CHRIS [place] DR: Shira Becerril MD [facility] _ SOURCE: URINE SPDESC: ORDERED: Urine Culture Procedure Result Reported Site Urine Culture Final 07/01/18- 1605 ML No Growth (<1,000 CFU/mL) * ML - Main Lab . END OF REPORT DEPARTMENT OF PATHOLOGY, [address] [place] [address] Minor Xavier M.D. Director [facility] # [id number] 5 Park Worker: [id number] Prescribed Medications: Hydrocodone (Hydrocodone), Ambien (Zolpidem), Acetaminophen (Acetaminophen), ALBUTEROL, PROVENTIL, OMEPRAZOLE, ATORVASTATIN 7 Positive >2000 Inconsistent 8 Prescribed Medications: Hydrocodone (Hydrocodone), Ambien (Zolpidem), Acetaminophen (Acetaminophen), ALBUTEROL, PROVENTIL, OMEPRAZOLE, ATORVASTATIN 9 Prescribed Medications: Hydrocodone (Hydrocodone), Ambien (Zolpidem), Acetaminophen (Acetaminophen), ALBUTEROL, PROVENTIL, OMEPRAZOLE, ATORVASTATIN 10 Prescribed Medications: Hydrocodone (Hydrocodone), Ambien (Zolpidem), Acetaminophen (Acetaminophen), ALBUTEROL, PROVENTIL, OMEPRAZOLE, ATORVASTATIN 11 Prescribed Medications: Hydrocodone (Hydrocodone), Ambien (Zolpidem), Acetaminophen (Acetaminophen), ALBUTEROL, PROVENTIL, OMEPRAZOLE, ATORVASTATIN 12 22 Positive Consistent The common brand name for Zolpidem is Ambien. Prescribed Medications: Hydrocodone (Hydrocodone), Ambien (Zolpidem), Acetaminophen (Acetaminophen), ALBUTEROL, PROVENTIL, OMEPRAZOLE, ATORVASTATIN 13 Prescribed Medications: Hydrocodone (Hydrocodone), Ambien (Zolpidem), Acetaminophen (Acetaminophen), ALBUTEROL, PROVENTIL, OMEPRAZOLE, ATORVASTATIN 14 Prescribed Medications: Hydrocodone (Hydrocodone), Ambien (Zolpidem), Acetaminophen (Acetaminophen), ALBUTEROL, PROVENTIL, OMEPRAZOLE, ATORVASTATIN 15 2076 Positive Consistent 16 Negative Consistent 17 1273 Positive Consistent 18 Prescribed Medications: Hydrocodone (Hydrocodone), Ambien (Zolpidem), Acetaminophen (Acetaminophen), ALBUTEROL, PROVENTIL, OMEPRAZOLE, ATORVASTATIN 19 Prescribed Medications: Hydrocodone (Hydrocodone), Ambien (Zolpidem), Acetaminophen (Acetaminophen), ALBUTEROL, PROVENTIL, OMEPRAZOLE, ATORVASTATIN 20 Prescribed Medications: Hydrocodone (Hydrocodone), Ambien (Zolpidem), Acetaminophen (Acetaminophen), ALBUTEROL, PROVENTIL, OMEPRAZOLE, ATORVASTATIN 21 Prescribed Medications: Hydrocodone (Hydrocodone), Ambien (Zolpidem), Acetaminophen (Acetaminophen), ALBUTEROL, PROVENTIL, OMEPRAZOLE, ATORVASTATIN 22 Prescribed Medications: Hydrocodone (Hydrocodone), Ambien (Zolpidem), Acetaminophen (Acetaminophen), ALBUTEROL, PROVENTIL, OMEPRAZOLE, ATORVASTATIN 23 Prescribed Medications: Hydrocodone (Hydrocodone), Ambien (Zolpidem), Acetaminophen (Acetaminophen), ALBUTEROL, PROVENTIL, OMEPRAZOLE, ATORVASTATIN 24 Prescribed Medications: Hydrocodone (Hydrocodone), Ambien (Zolpidem), Acetaminophen (Acetaminophen), ALBUTEROL, PROVENTIL, OMEPRAZOLE, ATORVASTATIN 25 [id number] 26 SEE RESULT BELOW Name: ZACH JOSEPH : [address]: Walt Chilel MD Acct: [id number] Unit: [id number] AGE: 77 Location: [facility] Re11/05/17 SEX: M Status: DEP REF SPEC: [id number] ALLY: 11/05/17-1013 [facility] DR: Walt Chilel MD REQ: [id number] RECD: 11/05/17 STATUS: FERNANDA VILA DR: Shira Becerril MD _ ORDERED: LEVEL 4, IMMUNO-FIRST COMMENTS: [id number] Addendum: An immunohistochemical stain for Helicobacter pylori-like [...] 1100 END OF REPORT DEPARTMENT OF PATHOLOGY, [address] [place] [address] Minor Xavier M.D. Director [facility] # [id number] 27 SEE RESULT BELOW Name: ZACH JOSEPH : [address]: Jude Almazan MD Acct: [id number] Unit: [id number] AGE: 77 Location: [place] [address] Re09/06/17 SEX: M Status: ADM IN SPEC: [id number] ALLY: 09/06/17-1245 [facility] DR: Terrance Dos Santos MD REQ: [id number] RECD: 09/06/17 STATUS: CHRIS VILA DR: Shira Becerril MD _ SOURCE: URINE SPDESC: ORDERED: Urine Culture Procedure Result Reported Site Urine Culture Final 09/07/17- 1144 ML Organism 1 AEROCOCCUS SPECIES Wallace Count >100,000 (Many) CFU/ML Aerococcus isolates are too fastidious for routine susceptibility studies. Aerococcus are usually susceptible to penicillin, amoxicillin, piperacillin, cefipime, rifampin and vancomycin. Moderate to good activity occurs with the quinolones, tetracyclines and erythromycin. ([employer] [place] and Textbook of Diagnostic Microbiology 6th Ed. 2006, p. 705-6.) * ML - Main Lab . END OF REPORT DEPARTMENT OF PATHOLOGY, [address] [place] [address] Minor Xavier M.D. Director [facility] # [id number] 28 SEE RESULT BELOW Name: UGOSTEPHANYZACH : [address]: Terrance Dos Santos MD Acct: [id number] Unit: [id number] AGE: 77 Location: ED Re09/06/17 SEX: M Status: REG ER SPEC: [id number] ALLY: 09/06/17-[address]: Terrance Dos Santos MD REQ: [id number] RECD: 09/06/17131 STATUS: CHRIS VILA DR: Shira Becerril MD _ SOURCE: STOOL SPDESC: ORDERED: Occult Bl, Scn Procedure Result Reported Site Stool Occult Blood (1) Final 09/06/17- 1320 ML Stool Occult Blood Positive Collection Date (1) 09/06/17 * ML - Main Lab . END OF REPORT DEPARTMENT OF PATHOLOGY, [address] [place] [address] Minor Xavier M.D. Director [facility] # [id number] 29 Because ethnic data is not always readily [...] 15-29 5 Kidney failure <15 (or dialysis) 30 Therapeutic target for the treatment of diabetes mellitus patients is <7% HBA1C, and in selective patients <6.0%. Please refer to [place] [employer] diabetic care guidelines for further information. 31 [id number] 32 Desirable: <150 Borderline High: 150-199 High: 200-499 Very High: >500 33 Desirable: <200 Borderline High: 200-239 High: >239 34 Low: <40 Desirable: 40-60 High: >60 35 Desirable: <100 Near Optimal: 100-129 Borderline High: 130-159 High: 160-189 Very High: >189 36 Because ethnic data is not always readily [...] 15-29 5 Kidney failure <15 (or dialysis) 37 [id number] 38 Therapeutic target for the treatment of diabetes mellitus patients is <7% HBA1C, and in selective patients <6.0%. Please refer to [place] [employer] diabetic care guidelines for further information. 39 Desirable: <150 Borderline High: 150-199 High: 200-499 Very High: >500 40 Desirable: <200 Borderline High: 200-239 High: >239 41 Low: <40 Desirable: 40-60 High: >60 42 Desirable: <100 Near Optimal: 100-129 Borderline High: 130-159 High: 160-189 Very High: >189 43 Normal Range 180 to 914 Indeterminate Range 145 to 180 Deficient Range <145 44 [id number] 47 Desirable <150 Borderline high 150-199 High 200-499 Very High >500 48 Desirable <200 Borderline high 200-239 High >239 49 Low <40 Desirable: 40-60 High: >60 50 Desirable: <100 mg/dL Near Optimal: 100-129 mg/dL Borderline High: 130-159 mg/dL High: 160-189 mg/dL Very High: >189 mg/dL 51 Therapeutic target for the treatment of diabetes Mellitus patients is <7% HBA1C, and in selective patients <6.0%.Please refer to [place] [employer] Diabetic care guidelines for further information. 52 [id number] 53 Normal Range 180 to 914 Indeterminate Range 145 to 180 Deficient Range <145 54 [id number] 55 Because ethnic data is not always readily [...] 15-29 5 Kidney failure <15 (or dialysis) 56 [id number] 57 [id number] 58 Because ethnic data is not always readily [...] 15-29 5 Kidney failure <15 (or dialysis) 59 [id number] 60 Therapeutic target for the treatment of diabetes Mellitus patients is <7% HBA1C, and in selective patients <6.0%.Please refer to [place] [employer] Diabetic care guidelines for further information. 61 Normal Range 180 to 914 Indeterminate Range 145 to 180 Deficient Range <145 62 [id number] 63 Desirable <150 Borderline high 150-199 High 200-499 Very High >500 64 Desirable <200 Borderline high 200-239 High >239 65 Low <40 Desirable: 40-60 High: >60 66 Desirable: <100 mg/dL Near Optimal: 100-129 mg/dL Borderline High: 130-159 mg/dL High: 160-189 mg/dL Very High: >189 mg/dL 67 07/03/15 LAB.EMM1 Deleted by Reflex Group [facility] 68 NEGATIVE FOR C. DIFFICILE TOXIN A/B. CORRELATE RESULTS WITH CLINICAL CONDITION. 69 Note: Persistent reduction for 3 months or more in an eGFR <60 mL/min/1.73 m2 defines CKD. Patients with eGFR values >/=60 mL/min/1.73 m2 may also have CKD if evidence of persistent proteinuria is present. The original MDRD equation for estimated GFR is not valid for patients less than 18 years of age. Additional information may be found at www.kdoqi.org. 70 Reference Guidelines*: Desirable: ........... < 200 mg/dL Borderline High: ..... 200-239 mg/dL High: ................ >=240 mg/dL * The National Cholesterol Education Program (NCEP) 71 Reference Guidelines*: Normal: ............. < 150 mg/dL Borderline High: .... 150-199 mg/dL High: ............... 200-499 mg/dL Very High: .......... > 500 mg/dL * Source: National Cholesterol Education Program (NCEP) 72 Reference Guidelines*: Low HDL: ..... < 40 mg/dL Normal: ..... 40-60 mg/dL Desirable: ... > 60 mg/dL *The National Cholesterol Education Program(NCEP) 73 Reference Guidelines*: Optimal:........... <100 mg/dL Near Optimal....... 100-129 mg/dL Borderline High.... 130-159 mg/dL High............... 160-189 mg/dL Very High.......... >=190 mg/dL * Source: National Cholesterol Education Program (NCEP) 74 Note: Persistent reduction for 3 months or more in an eGFR <60 mL/min/1.73 m2 defines CKD. Patients with eGFR values >/=60 mL/min/1.73 m2 may also have CKD if evidence of persistent proteinuria is present. The original MDRD equation for estimated GFR is not valid for patients less than 18 years of age. Additional information may be found at www.kdoqi.org. 75 Note: Persistent reduction for 3 months or more in an eGFR <60 mL/min/1.73 m2 defines CKD. Patients with eGFR values >/=60 mL/min/1.73 m2 may also have CKD if evidence of persistent proteinuria is present. The original MDRD equation for estimated GFR is not valid for patients less than 18 years of age. Additional information may be found at www.kdoqi.org. 76 NEGATIVE FOR C. DIFFICILE TOXIN A/B. CORRELATE RESULTS WITH CLINICAL CONDITION. 77 Note: Persistent reduction for 3 months or more in an eGFR <60 mL/min/1.73 m2 defines CKD. Patients with eGFR values >/=60 mL/min/1.73 m2 may also have CKD if evidence of persistent proteinuria is present. The original MDRD equation for estimated GFR is not valid for patients less than 18 years of age. Additional information may be found at www.kdoqi.org. 78 Note: Persistent reduction for 3 months or more in an eGFR <60 mL/min/1.73 m2 defines CKD. Patients with eGFR values >/=60 mL/min/1.73 m2 may also have CKD if evidence of persistent proteinuria is present. The original MDRD equation for estimated GFR is not valid for patients less than 18 years of age. Additional information may be found at www.kdoqi.org. 79 0.0 - 0.045 ng/mL: Normal 0.046 - 0.5 ng/mL: Suggestive 0.6 - 1.5 ng/mL: Consistent 80 THERAPEUTIC INR RANGE: 2.0 - 3.0 DVT, Pulmonary embolus, prophylaxis against venous thrombosis or systemic embolization in high risk patients. 2.5 - 3.5 Mechanical heart valves 81 Is patient on anticoagulants? Coumadin QUERY: Anticoagulant Therapy? QUERY: Date of Last Dose: QUERY: Time of Last Dose: 82 06/25/15 LAB.DOLORES Deleted by Reflex Group [facility] 83 Reference Guidelines*: Desirable: ........... < 200 mg/dL Borderline High: ..... 200-239 mg/dL High: ................ >=240 mg/dL * The National Cholesterol Education Program (NCEP) 84 Reference Guidelines*: Normal: ............. < 150 mg/dL Borderline High: .... 150-199 mg/dL High: ............... 200-499 mg/dL Very High: .......... > 500 mg/dL * Source: National Cholesterol Education Program (NCEP) 85 Reference Guidelines*: Low HDL: ..... < 40 mg/dL Normal: ..... 40-60 mg/dL Desirable: ... > 60 mg/dL *The National Cholesterol Education Program(NCEP) 86 Reference Guidelines*: Optimal:........... <100 mg/dL Near Optimal....... 100-129 mg/dL Borderline High.... 130-159 mg/dL High............... 160-189 mg/dL Very High.......... >=190 mg/dL * Source: National Cholesterol Education Program (NCEP) 87 Elevated levels of HbA1c suggest the need for more aggressive treatment of glycemia. The [place] [employer] recommends that a primary goal of therapy should be a HbA1c of <7% and that physicians should re-evaluate the treatment regimen in patients with HbA1c values consistently >8%. 88 Note: Persistent reduction for 3 months or more in an eGFR <60 mL/min/1.73 m2 defines CKD. Patients with eGFR values >/=60 mL/min/1.73 m2 may also have CKD if evidence of persistent proteinuria is present. The original MDRD equation for estimated GFR is not valid for patients less than 18 years of age. Additional information may be found at www.[email or web address]. Procedures Date Code Description Status 05/14/2015 51951 Visual Screening Test Completed 05/14/2015 89155 EKG Completed 05/14/2015 38010 Audiometry, Bekesy, Screening Completed Encounters Type Date Location Provider Dx Diagnosis Office Visit 10/21/2018 [facility] Shira Becerril, E11.65 Type 2 diabetes 1:00p M.DVinicius mellitus with hyperglycemia J45.909 Unspecified asthma, uncomplicated [...] or perforation N20.0 Calculus of kidney Z79.891 half-way (current) use of opiate analgesic F10.10 Alcohol abuse, uncomplicated N39.0 Urinary tract infection, site not specified R30.0 Dysuria N40.1 Benign prostatic hyperplasia with lower urinary tract symp Office Visit 09/23/2018 1:00p [facility] Shira Becerril E11.65 Type 2 diabetes Jasper [...] or perforation N20.0 Calculus of kidney Z79.891 half-way (current) use of opiate analgesic F10.10 Alcohol abuse, uncomplicated N39.0 Urinary tract infection, site not specified R30.0 Dysuria N40.1 Benign prostatic hyperplasia with lower urinary tract symp Office Visit 08/19/2018 1:15p [facility] Shira Becerril E11.65 Type 2 diabetes [...] or perforation N20.0 Calculus of kidney Z79.891 half-way (current) use of opiate analgesic F10.10 Alcohol abuse, uncomplicated N39.0 Urinary tract infection, site not specified R30.0 Dysuria N40.1 Benign prostatic hyperplasia with lower urinary tract symp Office Visit 07/22/2018 1:00p [facility] Jone Modestoemerita E11.65 Type 2 diabetes Jasper Rodriguez mellitus [...] or perforation N20.0 Calculus of kidney Z79.891 manager long term care (current) use of opiate analgesic F10.10 Alcohol abuse, uncomplicated N39.0 Urinary tract infection, site not specified R30.0 Dysuria Office Visit 06/24/2018 1:00p [facility] Jone Modestoemerita E11.65 Type 2 diabetes Jasper Rodriguez mellitus [...] or perforation N20.0 Calculus of kidney Z79.891 manager long term care (current) use of opiate analgesic F10.10 Alcohol abuse, uncomplicated N39.0 Urinary tract infection, site not specified R30.0 Dysuria Office Visit 05/25/2018 1:30p [facility] Shira Becerril E11.65 Type 2 diabetes [...] or perforation N20.0 Calculus of kidney Z79.891 half-way (current) use of opiate analgesic F10.10 Alcohol abuse, uncomplicated N39.0 Urinary tract infection, site not specified Office Visit 04/22/2018 1:00p [facility] Shira Becerril E11.65 Type 2 diabetes [...] or perforation N20.0 Calculus of kidney Z79.891 manager long term care (current) use of opiate analgesic F10.10 Alcohol abuse, uncomplicated Z23 Encounter for immunization Office Visit 03/25/2018 1:00p [facility] Shira Becerril E11.65 Type 2 diabetes [...] or perforation N20.0 Calculus of kidney Z79.891 half-way (current) use of opiate analgesic F10.10 Alcohol abuse, uncomplicated Office Visit 02/24/2018 1:30p [facility] Terrance Gómez E11.65 Type 2 diabetes [...] or perforation N20.0 Calculus of kidney Z79.891 half-way (current) use of opiate analgesic Office Visit 01/25/2018 11:30a [facility] JoneRemigiograham E11.65 Type 2 diabetes Jasper Rodriguez mellitus [...] Calculus of kidney Office Visit 12/24/2017 2:00p [facility] JoneShira sanders E11.65 Type 2 diabetes [...] Calculus of kidney Office Visit 11/26/2017 1:00p [facility] Shira Becerril E11.65 Type 2 diabetes [...] Calculus of kidney Office Visit 10/27/2017 1:30p [facility] Shira Becerril E11.65 Type 2 diabetes [...] hemorrhage or perforation Office Visit 09/22/2017 1:45p [facility] emerita E11.65 Type 2 diabetes Jasper Rodriguez mellitus [...] site not specified Office Visit 08/19/2017 2:45p [facility] Type 2 diabetes Jasper Rodriguez mellitus [...] and colitis, unspecified Office Visit 06/04/2017 1:45p [facility] E11.65 Type 2 diabetes Jasper Rodriguez mellitus [...] behavior of skin Office Visit 05/21/2017 1:45p [facility] Jone, Modestotxgraham E11.65 Type 2 diabetes Jasper Rodriguez mellitus [...] site not specified Office Visit 05/07/2017 1:30p [facility] Jone, Modesotemerita E11.65 Type 2 diabetes Jasper Rodriguez mellitus [...] site not specified Office Visit 03/12/2017 1:45p [facility] Jone Modestoemerita E11.65 Type 2 diabetes Jasper Rodriguez mellitus [...] E78.2 Mixed hyperlipidemia Office Visit 02/26/2017 2:00p [facility] Shira Becerril E11.65 Type 2 diabetes [...] Encounter for immunization Office Visit 02/12/2017 2:00p [facility] Shira Becerril E11.65 Type 2 diabetes [...] unspecified R05 Cough Office Visit 01/29/2017 2:15p [facility] Moise Loja E11.65 Type 2 diabetes WHARF OPERATOR mellitus with hyperglycemia J45.909 Unspecified asthma, uncomplicated M25.569 Pain in unspecified knee J30.2 Other seasonal allergic rhinitis E66.01 Morbid (severe) obesity due to excess calories Z98.84 Bariatric surgery status I63.9 Cerebral infarction, unspecified G47.00 Insomnia, unspecified Office Visit 01/16/2017 2:00p [facility] Shira Becerril E11.65 Type 2 diabetes [...] L50.9 Urticaria, unspecified Office Visit 01/02/2017 2:00p [facility] Shira Becerril E11.65 Type 2 diabetes [...] L50.9 Urticaria, unspecified Office Visit 12/19/2016 2:00p [facility] Shira Becerril E11.65 Type 2 diabetes [...] R29.6 Repeated falls Office Visit 11/20/2016 11:30a [facility] Jone, Shira E11.65 Type 2 diabetes Jasper Rodriguez mellitus [...] syndrome with diarrhea Office Visit 10/21/2016 1:30p [facility] JoneShira sanders E11.65 Type 2 diabetes [...] Acute pansinusitis, unspecified Office Visit 09/19/2016 10:45a [facility] JoneShira sanders E11.65 Type 2 diabetes [...] Acute pansinusitis, unspecified Office Visit 08/22/2016 1:30p [facility] Type 2 diabetes Jasper Rodriguez mellitus [...] behavior of skin Office Visit 07/24/2016 1:30p [facility] Modestotxgraham E11.65 Type 2 diabetes Jasper Rodriguez mellitus [...] w abnormal findings Office Visit 06/23/2016 11:00a [facility] Moise Loja M25.569 Pain in WHARF OPERATOR unspecified knee E11.65 Type 2 diabetes mellitus with hyperglycemia J30.2 Other seasonal allergic rhinitis E66.01 Morbid (severe) obesity due to excess calories Office Visit 05/23/2016 1:30p [facility] Shira Becerril M25.569 Pain in M., [...] behavior of skin Office Visit 04/24/2016 11:00a [facility] Shira Becerril M25.569 Pain in M., [...] behavior of skin Office Visit 03/25/2016 11:30a [facility] Shira Becerril M25.569 Pain in Lucia Rodriguez. unspecified knee E11.65 Type 2 diabetes mellitus [...] Encounter for immunization Office Visit 02/22/2016 11:15a [facility] Shira Becerril E11.65 Type 2 diabetes [...] behavior of skin Office Visit 01/25/2016 11:00a [facility] Shira Becerril E11.65 Type 2 diabetes aJsper Rodriguez mellitus with hyperglycemia J45.909 Unspecified asthma, [...] R60.0 Localized edema Office Visit 12/28/2015 11:30a [facility] Shira Becerril E11.65 Type 2 diabetes [...] gait and mobility Office Visit 11/27/2015 2:15p [facility] 2 diabetes Jasper Rodriguez [...] gait and mobility Office Visit 10/30/2015 1:45p [facility] Jone, Liveclubstxd E11.65 Type 2 diabetes Jasper Rodriguez mellitus [...] gait and mobility Office Visit 10/04/2015 11:15a [facility] emerita E11.65 Type 2 diabetes Jasper Rodriguez mellitus [...] gait and mobility Office Visit 09/27/2015 9:45a [facility] Type 2 diabetes Jasper Rodriguez [...] gait and mobility Office Visit 09/04/2015 1:45p [facility] Shira Becerril E11.65 Type 2 diabetes [...] gait and mobility Office Visit 08/07/2015 1:45p [facility] Shira Becerril E11.65 Type 2 diabetes [...] gait and mobility Office Visit 06/25/2015 10:15a [facility] Shira Becerril I69.828 Ot speech/lang Jasper Rodriguez deficits following oth cerebvasc [...] K30 Functional dyspepsia Office Visit 06/07/2015 1:45p [facility] Jone Modestoemerita E11.65 Type 2 diabetes Jasper Rodriguez mellitus [...] K30 Functional dyspepsia Office Visit 05/29/2015 3:00p [facility] JoneShira sanders E11.65 Type 2 diabetes [...] K30 Functional dyspepsia Office Visit 05/14/2015 2:30p [facility] JoneShira sanders E11.65 Type 2 diabetes [...] esophagitis K30 Functional dyspepsia Plan of Treatment 10/21/2018 - Shira Becerril M.D.E11.65 Type 2 diabetes mellitus with hyperglycemiaComments:DIET REVIEWED CONTINUE DIETWT LOSSFS qAC AND HS PRN F/U FBWJ45.909 Unspecified asthma, uncomplicatedComments:MDI / NEBULIZER TX PRN AVOID EXPOSURE TO SMOKING OR FUMES SMOKING [id number] Essential (primary) hypertensionComments:CHECK BP TIW ( PRN)DIET AND FLUID COUNSELING LOW SODIUM DIETWT LOSSF/U LABE78.2 Mixed hyperlipidemiaComments:DIET REVIEWED CONTINUE DIETWT LOSSF/U LAB FBWI63.9 Cerebral infarction, unspecifiedComments:OBSERVE CONTINUE WITH RX F/U WITH XJIUYKTVJO22.91 Hemiplegia, unspecified affecting right dominant sideComments:SAFETY CLEAR PATH @ HOMEAVOID USE OF LOOSE RUGSUSE CANE /WALKER NEEDEDPROVIDE ADEQUATE LIGHT @ HOMEUSE WELL FITTED SHOESCONSIDER USE OF REMOTE CALLING DEVICEARRANGE FOR REGURAL CHECK UP BY FAMILY KENDRICK ZIEGLERR26.89 Other abnormalities of gait and mobilityComments:SAFETY CLEAR PATH @ HOMEAVOID USE OF LOOSE RUGSUSE CANE / WALKER NEEDEDPROVIDE ADEQUATE LIGHT @ HOMEUSE WELL FITTED SHOESCONSIDER USE OF REMOTE CALLING DEVICEARRANGE FOR REGURAL CHECK UP BY FAMILY KENDRICK ZIEGLERL50.9 Urticaria, unspecifiedComments:SKIN CAREAVOID ITCHING/ SCRATCHING SKINLOTION PRN BENEDRYL/ ANTIHISTAMINE PRNR29.6 Repeated fallsComments:SAFETY CLEAR PATH @ HOMEAVOID USE OF LOOSE RUGSUSE CANE /WALKER NEEDEDPROVIDE ADEQUATE LIGHT @ HOMEUSE WELL FITTED SHOESCONSIDER USE OF REMOTE CALLING DEVICEARRANGE FOR REGURAL CHECK UP BY FAMILY JORDENGAUTAM USE CANEK58.0 Irritable bowel syndrome with diarrheaComments:TYLENOL OR MOTRIN PRNINCREASE PO FLUIDF/U YWSSPAJFA32.0 Localized edemaNew Medication: Furosemide 40 mg - 1 by mouth every dayComments:ELEVATE LE PRNELASTIC STOCKING / JOSE MIGUEL WRAP PRNF/U LAB TAQJMQJ91.02 Shortness of breathComments:NEB OR MDI AND / OR OXYGENINCREASE PO FLUIDRESTSMOKING [id number] Functional dyspepsiaComments: AVOID CAFFEINE, ETOH AND SPICY FOODSTUMS OR MYLANTA PRN CALL WITH PROBLEMS OR CONCERNSSMOKING BVGZFERSES98.81 Nasal congestionComments:INCREASE PO FLUIDTYLENOL OR MOTRIN PRNREST USE ANTIHISTAMINE PRN SMOKING CESSATION ZPPYWGPWHTKE56.9 Gastro-esophageal reflux disease without esophagitisComments: AVOID CAFFEINE, ETOH AND SPICY FOODSTUMS OR MYLANTA PRN CALL WITH PROBLEMS OR CONCERNSSMOKING FVPFJEWHCP03.7 Unspecified visual lossComments:WEWYEWUI25.93 Unspecified hearing loss, bilateralComments:OBSERVE SMOKING AVCTKDMKAL58.00 Constipation, unspecifiedComments:MOM OR MIRALAX PRNHIGH FIBER DIETINCREASE PO EBIWJF51.84 Generalized abdominal painComments:TYLENOL OR MOTRIN PRNINCREASE PO FLUIDLAXATIVE PRN F/U DIRECTEDF/U SKVMWHQGW02.9 Polyosteoarthritis, unspecifiedComments:EXERCISE/HEAT/MESSAGETYLENOL OR MOTRIN PRNAVOID HEAVY LIFTINGWT LOSS DUR JQNBQIIV87.84 Bariatric surgery statusComments:F/U WITH SURGERYF/U DIET [id number] Insomnia, unspecifiedComments: COUNCELLING AND REASSURANCE RELAXATION TECHNIQUES DISCUSSED COUNSELED RE: STRESSORS IN LIFE TYLENOLPM OR MOTRIN PM PRNE66.01 Morbid (severe) obesity due to excess caloriesComments:WT LOSS COUNCELLINGEXERCISEDIET RUUBLGWGRTLM72.2 Other seasonal allergic rhinitisComments:INCREASE PO FLUID USE ANTIHISTAMINE PRN SECOND HAND SMOKING AVOIDANCE SMOKING CESSATION CXEAMTZRNLVO73.569 Pain in unspecified kneeComments:EXERCISE/HEAT /MESSAGEAVOID HEAVY LIFTING WT LOSSTYLENOL OR MOTRIN PRN DUR LYHBWTTX93.9 Atopic dermatitis, unspecifiedComments:SKIN CARE INSTRUCTIONS LOTION OR BABY OIL 2-3 APPLICATION PER DAYUSE MOISTURIZING SOAPAVOID PROLONGED WATER EXPOSUREAVOID USING HOT WATER IN DSITGSV07.5 Neoplasm of uncertain behavior of skinComments:C/O ULCER R EAR RESOLVED S/P TX BY DERMATOLOGY AND TO F/U PRNK25.7 Chronic gastric ulcer without hemorrhage or perforationComments:AVOID CAFFEINE, ETOH AND SPICY FOODSTUMS OR MYLANTA PRN CALL WITH PROBLEMS OR CONCERNASA D/CN20.0 Calculus of kidneyComments:STABLE F/U WITH UROLOGY PRNZ79.891 half-way (current) use of opiate analgesicComments:REVIEWED MEDICATIONS AND DIRECTIONS WITH PATIENT DUR CHECKED SEE DRUG SCREEN MBDIJPKT77.10 Alcohol abuse, uncomplicatedComments: ETOH ABSTINENCECOUNCELLING AND ZSTPSDRQPWVV92.0 Urinary tract infection, site not specifiedComments:INCREASE PO FLUIDREVIEWED PREVENTIVE FCYZTHKEN51.0 DysuriaComments:INCREASE PO FLUIDTYLENOL OR MOTRIN PRNN40.1 Benign prostatic hyperplasia with lower urinary tract symptoComments:OBSERVE F/U WITH UROLOGY
--- NOTE | 2018-11-17 16:01 | ED ---
GI/ HPI - HPI Summary HPI Summary: A 78 y/o male accompanied by his presents to [facility] with a chief complaint of having difficulty urinating since 10:00 today. He reports some flank pain. At triage he rated his pain as a 9/10 in severity and denied hematuria. He has Hx of kidney stones and difficulty urinating. He was referred to the ED by Dr. Vences. He was told that he has crystals in his bladder. - History of Current Complaint Chief Complaint: EDUrogenitalProblems Time Seen by Provider: 11/17/18 15:42 Stated Complaint: TROUBLE URINATING PER PT Hx Obtained From: Patient, Family/Crane Rigger Onset/Duration: Started Hours Ago, Still Present Timing: Constant, Lasting Hours Severity: Severe Current Severity: Moderate Pain Intensity: 9 - out of 10 Additional Locations for Males: Penis Pain Characteristics: Unable to describe Associated Signs and Symptoms: Negative: Fever, Hematuria Aggravating Factor(s): Nothing Alleviating Factor(s): Nothing - Additional Pertinent History Primary Care Physician: [id number] - Allergy/Home Medications Allergies/Adverse Reactions: Allergies Allergy/AdvReac Type Severity Reaction Status Date / Time No Known Allergies Allergy Verified 11/17/18 14:56 PMH/Surg Hx/FS Hx/Imm Hx Endocrine/Hematology History: Reports: Hx Diabetes - before ana surgery Cardiovascular History: Reports: Hx Hypertension Denies: Hx Congestive Heart Failure Respiratory History: Reports: Hx Asthma, Hx Sleep Apnea GI History: Reports: Hx Gastroesophageal Reflux Disease History: Reports: Hx Kidney Stones Sensory History: Denies: Hx Contacts or Glasses, Hx Deafness, Hx Hearing Aid Opthamlomology History: Denies: Hx Contacts or Glasses - Surgical History Surgery Procedure, Year, and Place: gastric bypass in 2007 Infectious Disease History: No Infectious Disease History: Reports: Hx Shingles Denies: Traveled Outside the [place] in Last 30 Days - Family History Known Family History: Positive: Diabetes - Social History Alcohol Use: Rare Substance Use Type: Reports: None Smoking Status (MU): Current Some Day Smoker Type: Cigars Review of Systems Negative: Fever Positive: dysuria, flank pain. Negative: hematuria All Other Systems Reviewed And Are Negative: Yes Physical Exam - Summary Physical Exam Summary: Appearance: Well-appearing, Well-nourished, lying in bed comfortable Skin: Warm, dry, no obvious rash Eyes: sclera anicteric, no conjunctival pallor ENT: mucous membranes moist Neck: deferred Respiratory: No signs of respiratory distress Cardiovascular: Appears well perfused, pulses are nml Abdomen: deferred Musculoskeletal: Moving all 4 extremities without obvious discomfort Neurological: Awake and alert, mentation is normal, speech is fluent and appropriate Psychiatric: affect is normal, does not appear anxious or depressed Triage Information Reviewed: Yes Vital Signs On Initial Exam: Initial Vitals Temp Pulse Resp BP Pulse Ox 98.7 F 71 20 164/74 96 11/17/18 14:53 11/17/18 14:53 11/17/18 14:53 11/17/18 14:53 11/17/18 14:53 Vital Signs Reviewed: Yes Diagnostics - Vital Signs Vital Signs Temp Pulse Resp BP Pulse Ox 11/17/18 14:53 98.7 F 71 20 164/74 96 - Laboratory Result Diagrams: 11/17/18 16:06 11/17/18 16:06 Lab Statement: Any lab studies that have been ordered have been reviewed, and results considered in the medical decision making process. GIGU Course/Dx - Course Course Of Treatment: A 78 y/o male accompanied by his presents to [facility] with a chief complaint of having difficulty urinating since 10:00 today. The physical exam was unremarkable. Bloodwork, chemistries and urines obtained. Urine Protein 2+, Urine blood 2+, Ur Leukocyte Esterase 3+, Urine WBC 3+, Urine RBC 3+, Ur Squamous Epith Cells present. The patient states he is having trouble voiding, he was able to produce a urine specimen and his postvoid residual by bladder scan was only 75 cc. So he does not appear obstructed. I have a call out to Dr. Vences who currently is in a procedure to discuss the case and see what further studies he might wish done. We discussed lab results and he recommended Augmentin. Keflex was not helping the patient. The patient will be discharged home with a prescription for Augmentin and follow up with Dr. Vences. The patient is agreeable with this plan. - Diagnoses Provider Diagnoses: Urinary tract infection - Physician Notifications Discussed Care Of Patient With: Adelso Vences Time Discussed With Above Provider: 17:00 Instructed by Provider To: Other - discussed lab results and he recommended Augmentin. Discharge - Sign-Out/Discharge Documenting (check all that apply): Patient Departure - DC Patient Received Moderate/Deep Sedation with Procedure: No - Discharge Plan Condition: Good Disposition: HOME Prescriptions: Amoxicillin/Clavulanate TAB* [Augmentin TAB 875*] 875 mg PO BID #20 tab Patient Education Materials: Urinary Tract Infection in Men (ED) Referrals: Adelso Vences MD [Medical Doctor] - - Billing Disposition and Condition Condition: GOOD Disposition: Home - Attestation Statements Document Initiated by Karol: Yes Documenting Scribe: Brian Bolivar Provider For Whom Karol is Documenting (Include Credential): Ellis Clark MD Scribe Attestation: Brian Alex scribed for Ellis Clark MD on 11/19/18 at 0941. Scribe Documentation Reviewed: Yes Provider Attestation: The documentation as recorded by the Brian barfield accurately reflects the service I personally performed and the decisions made by me, Ellis Clark MD Status of Scribe Document: Viewed
[2018-11-17 16:18] LABS: ABS Eosinophils 0.2 10^3/ul (0-0.6); ABS Lymphocytes 1.5 10^3/ul (1.0-4.8); ABS Monocytes 0.6 10^3/ul (0-0.8); ABS Neutrophils 4.3 10^3/ul (1.5-7.7); Hematocrit 40 % (42-52); Hemoglobin 13.8 g/dL (14.0-18.0); Lymphocyte % 22.8 %; Mean Corpuscular HGB Conc 34 g/dL (31-36); Mean Corpuscular Hemoglobin 32 pg (27-31); Mean Corpuscular Volume 95 fL (80-94); Nucleated Red Blood Cells % 0.2; Platelet Count 169 10^3/uL (150-450); Red Blood Count 4.28 10^6 /uL (4.18-5.48); Red Cell Distribution Width 13 % (10.5-15); White Blood Count 6.6 10^3/uL (3.5-10.8)
[2018-11-17 16:33] LABS: Urine Appearance Cloudy; Urine Bacteria Absent (Absent); Urine Bilirubin Negative (Negative); Urine Blood 2+ (Negative); Urine Color Yellow; Urine Glucose Negative (Negative); Urine Ketones Negative (Negative); Urine Nitrite Negative (Negative); Urine Protein 2+(100 mg/dL) (Negative); Urine Red Blood Cell 3+(>10/hpf) (Absent); Urine Specific Gravity 1.016 (1.010-1.030); Urine Squamous Epithelial Cell Present (Absent); Urine Urobilinogen Negative (Negative); Urine White Blood Cell 3+(>20/hpf) (Absent)
[2018-11-17 16:38] LABS: BUN/Creatinine Ratio 21.4 (8-20); EGFR Non-African American 60.3 (>60); Potassium 4.1 mmol/L (3.5-5.0)
[2018-11-17 17:32] VITALS: BP 153/77
== END 2018-11-17 17:30 | disposition home or self-care (01) ==
LOC: ED 14:47
DX: N39.0 Urinary tract infection, site not specified (principal); Z87.442 Personal history of urinary calculi; R30.0 Dysuria; Z72.0 Tobacco use; I10 Essential (primary) hypertension; K21.9 Gastro-esophageal reflux disease without esophagitis; Z98.84 Bariatric surgery status
CPT/HCPCS: 36415; 80048; 81003; 81015; 85025; 87086; 99283

== ENCOUNTER 2020-06-25 02:09 | Inpatient (IN) ==
[2020-06-25] MEDS ORDERED: Morphine 4 MG/ML VIAL (1 ml) IV ONE (03:16)
[2020-06-25 03:17] LABS: ABS Eosinophils 0.1 10^3/ul (0-0.6); ABS Lymphocytes 0.9 10^3/ul (1.0-4.8); ABS Monocytes 0.6 10^3/ul (0-0.8); ABS Neutrophils 10.5 10^3/ul (1.5-7.7); Eosinophil % 0.5 %; Hematocrit 40 % (42-52); Hemoglobin 13.6 g/dL (14.0-18.0); Lymphocyte % 7.6 %; Mean Corpuscular HGB Conc 34 g/dL (31-36); Mean Corpuscular Hemoglobin 35 pg (27-31); Mean Corpuscular Volume 101 fL (80-94); Platelet Count 141 10^3/uL (150-450); Red Blood Count 3.94 10^6 /uL (4.18-5.48); Red Cell Distribution Width 14 % (10-15); White Blood Count 12.1 10^3/uL (3.5-10.8)
[2020-06-25 03:23] LABS: INR 0.88 (0.82-1.09)
[2020-06-25 03:40] LABS: Albumin 3.1 g/dL (3.2-5.2); Albumin/Globulin Ratio 1.1 (1-3); BUN/Creatinine Ratio 20.8 (8-20); Calcium 8.6 mg/dL (8.6-10.3); EGFR African American 67.4 (>60); EGFR Non-African American 55.7 (>60); Globulin 2.7 g/dL (2-4); Total Bilirubin 0.5 mg/dL (0.2-1.0); Total Protein 5.8 g/dL (6.4-8.9)
[2020-06-25 05:17] LABS: Activated Partial Thrombo Time 27.4 seconds (26.0-38.0)
[2020-06-25] MEDS ORDERED: Al Hydrox/Mg Hydrox/Simet LIQ 30 ML UDC PO PRN (05:43)
[2020-06-25] MEDS ORDERED: Ondansetron 4 mg VIAL 2 MG/ML 2 ml VIAL IV PRN (05:43)
[2020-06-25 06:36] LABS: Urine Appearance Cloudy; Urine Bilirubin Negative (Negative); Urine Blood 1+ (Negative); Urine Color Amber; Urine Glucose Negative (Negative); Urine Ketones Negative (Negative); Urine Nitrite Negative (Negative); Urine Protein 2+(100 mg/dL) (Negative); Urine Specific Gravity 1.026 (1.010-1.030); Urine Urobilinogen Negative (Negative)
[2020-06-25 06:41] LABS: Urine Bacteria 1+ (Absent); Urine Red Blood Cell 3+(>10/hpf) (Absent); Urine Squamous Epithelial Cell Present (Absent); Urine White Blood Cell 3+(>20/hpf) (Absent)
[2020-06-25] MEDS: Pantoprazole VIAL 40 MG VIAL IV SCH (06:48)
[2020-06-25] MEDS: Morphine 2 MG/ML SYRINGE IV PRN ×4 (06:48→21:20)
[2020-06-25 09:44] LABS: Phosphorus 2.6 mg/dL (2.5-5.0)
[2020-06-25] MEDS: NS 0.9% 1000 ml BAG 1,000 ML IV SCH (10:40)
[2020-06-25] MEDS ORDERED: Perflutren Lipid Microsphere 3 ML VIAL ONE (16:41)
[2020-06-26] MEDS: NS 0.9% 1000 ml BAG 1,000 ML IV SCH (03:01)
[2020-06-26 05:04] LABS: BUN/Creatinine Ratio 24.4 (8-20); Calcium 7.8 mg/dL (8.6-10.3); EGFR African American 61.7 (>60); Potassium 4.5 mmol/L (3.5-5.0)
[2020-06-26] MEDS: Pantoprazole VIAL 40 MG VIAL IV SCH (06:31)
[2020-06-26 08:05] LABS: ABS Eosinophils 0.1 10^3/ul (0-0.6); ABS Lymphocytes 0.9 10^3/ul (1.0-4.8); ABS Monocytes 0.7 10^3/ul (0-0.8); ABS Neutrophils 7.6 10^3/ul (1.5-7.7); Eosinophil % 0.6 %; Hematocrit 32 % (42-52); Hemoglobin 10.9 g/dL (14.0-18.0); Lymphocyte % 9.7 %; Mean Corpuscular HGB Conc 34 g/dL (31-36); Mean Corpuscular Hemoglobin 35 pg (27-31); Mean Corpuscular Volume 103 fL (80-94); Mean Platelet Volume 9.3 fL (7.4-10.4); Nucleated Red Blood Cells % 0.1; Platelet Count 114 10^3/uL (150-450); Red Cell Distribution Width 15 % (10-15); White Blood Count 9.3 10^3/uL (3.5-10.8)
[2020-06-26] MEDS: Morphine 2 MG/ML SYRINGE IV PRN (08:55)
[2020-06-26 11:13] LABS: INR 0.99 (0.82-1.09)
[2020-06-27] MEDS: Morphine 2 MG/ML SYRINGE IV PRN ×6 (04:07→22:57)
[2020-06-27] MEDS ORDERED: Sodium Citrate/Citric Acid LIQ 15 ML UDC PO ONE (06:00)
[2020-06-27 06:16] LABS: ABS Eosinophils 0.2 10^3/ul (0-0.6); ABS Lymphocytes 1.1 10^3/ul (1.0-4.8); ABS Monocytes 0.7 10^3/ul (0-0.8); ABS Neutrophils 6.6 10^3/ul (1.5-7.7); Eosinophil % 2.1 %; Hematocrit 31 % (42-52); Hemoglobin 10.8 g/dL (14.0-18.0); Mean Corpuscular HGB Conc 35 g/dL (31-36); Mean Corpuscular Hemoglobin 35 pg (27-31); Mean Corpuscular Volume 102 fL (80-94); Mean Platelet Volume 8.9 fL (7.4-10.4); Platelet Count 120 10^3/uL (150-450); Red Blood Count 3.07 10^6 /uL (4.18-5.48); Red Cell Distribution Width 14 % (10-15); White Blood Count 8.7 10^3/uL (3.5-10.8)
[2020-06-27 06:19] LABS: Activated Partial Thrombo Time 29.8 seconds (26.0-38.0); INR 0.97 (0.82-1.09)
[2020-06-27] MEDS: Pantoprazole VIAL 40 MG VIAL IV SCH (06:29)
[2020-06-27 06:32] LABS: BUN/Creatinine Ratio 24.4 (8-20); Calcium 8.2 mg/dL (8.6-10.3); EGFR African American 71.4 (>60); Potassium 4.3 mmol/L (3.5-5.0)
[2020-06-27] MEDS ORDERED: Ondansetron 4 mg VIAL 2 MG/ML 2 ml VIAL ONE (06:53)
[2020-06-27] MEDS ORDERED: Lidocaine 1% w EPI 1:100,000 MDV 20 ML VIAL ONE (07:16)
[2020-06-27] MEDS ORDERED: Bacitracin INJECTION 50,000 UNITS ONE (07:17)
[2020-06-27] MEDS ORDERED: ceFAZolin 2 GM PREMIX 2 GM/50 ML BAG ONE (07:20)
[2020-06-27] MEDS ORDERED: Ketamine HCL 50 mg/ml 10 ml VIAL (500 MG) ONE (07:46)
[2020-06-27] MEDS ORDERED: Acetaminophen IV 1 GM/100ML 1,000 MG/100 ML VIAL IVPB PRN (08:30)
[2020-06-27] MEDS ORDERED: Ondansetron 4 mg VIAL 2 MG/ML 2 ml VIAL IV PRN (08:30)
[2020-06-27] MEDS ORDERED: HYDROmorphone 1 MG/1 ML SYRINGE IV PRN (08:30)
[2020-06-27] MEDS ORDERED: fentaNYL 100 mcg/2 ml 50 MCG/ML VIAL IV PRN (08:30)
[2020-06-27] MEDS ORDERED: Naloxone 0.4 mg VIAL 0.4 mg/ml 1 ml VIAL IV PRN (08:30)
[2020-06-27] MEDS ORDERED: Phenylephrine IV 10 MG/ML 1 ml VIAL ONE (08:51)
[2020-06-27] MEDS ORDERED: Propofol 10 MG/ML 20 ML BTL ONE ×2 (08:51→10:12)
[2020-06-27] MEDS ORDERED: Vancomycin 1,000 MG VIAL ONE (09:46)
[2020-06-27] MEDS ORDERED: fentaNYL 100 mcg/2 ml 50 MCG/ML VIAL ONE (11:46)
[2020-06-27] MEDS ORDERED: Polyethylene Glycol 3350 17 GM PACKET PO PRN (16:20)
[2020-06-27] MEDS: ceFAZolin 2 GM PREMIX 2 GM/50 ML BAG IVPB SCH (16:27)
[2020-06-27] MEDS ORDERED: Magnesium CITRATE LIQ 300 ML BTL PO ONE (18:32)
[2020-06-28] MEDS: ceFAZolin 2 GM PREMIX 2 GM/50 ML BAG IVPB SCH ×4 (01:09→23:42)
[2020-06-28] MEDS: Pantoprazole VIAL 40 MG VIAL IV SCH (05:13)
[2020-06-28 07:35] LABS: ABS Eosinophils 0.1 10^3/ul (0-0.6); ABS Lymphocytes 0.8 10^3/ul (1.0-4.8); ABS Monocytes 0.9 10^3/ul (0-0.8); ABS Neutrophils 9.2 10^3/ul (1.5-7.7); Eosinophil % 0.8 %; Hematocrit 29 % (42-52); Hemoglobin 9.8 g/dL (14.0-18.0); Lymphocyte % 7.6 %; Mean Corpuscular HGB Conc 34 g/dL (31-36); Mean Corpuscular Hemoglobin 35 pg (27-31); Mean Corpuscular Volume 103 fL (80-94); Platelet Count 129 10^3/uL (150-450); Red Blood Count 2.81 10^6 /uL (4.18-5.48); Red Cell Distribution Width 14 % (10-15); White Blood Count 11.1 10^3/uL (3.5-10.8)
[2020-06-28 07:51] LABS: Calcium 8.2 mg/dL (8.6-10.3); EGFR African American 72.1 (>60); EGFR Non-African American 59.5 (>60); Potassium 4.8 mmol/L (3.5-5.0)
[2020-06-29] MEDS: Pantoprazole VIAL 40 MG VIAL IV SCH (06:12)
[2020-06-29 08:33] LABS: ABS Eosinophils 0.1 10^3/ul (0-0.6); ABS Lymphocytes 0.9 10^3/ul (1.0-4.8); ABS Monocytes 1.1 10^3/ul (0-0.8); ABS Neutrophils 8.6 10^3/ul (1.5-7.7); Eosinophil % 0.8 %; Hematocrit 27 % (42-52); Hemoglobin 9.5 g/dL (14.0-18.0); Lymphocyte % 8.4 %; Mean Corpuscular HGB Conc 35 g/dL (31-36); Mean Corpuscular Hemoglobin 35 pg (27-31); Mean Corpuscular Volume 102 fL (80-94); Platelet Count 155 10^3/uL (150-450); Red Blood Count 2.68 10^6 /uL (4.18-5.48); Red Cell Distribution Width 14 % (10-15); White Blood Count 10.7 10^3/uL (3.5-10.8)
[2020-06-29 08:52] LABS: BUN/Creatinine Ratio 32.5 (8-20); Calcium 8.1 mg/dL (8.6-10.3); EGFR African American 70.7 (>60); EGFR Non-African American 58.4 (>60); Potassium 4.5 mmol/L (3.5-5.0)
[2020-06-29] MEDS: Nystatin TOP POWDER 15 GM BTL TOPICAL SCH ×2 (10:18→20:22)
[2020-06-29] MEDS ORDERED: Magnesium CITRATE LIQ 300 ML BTL PO ONE (16:39)
[2020-06-30 04:54] LABS: ABS Eosinophils 0.3 10^3/ul (0-0.6); ABS Lymphocytes 0.8 10^3/ul (1.0-4.8); ABS Monocytes 1.2 10^3/ul (0-0.8); ABS Neutrophils 8.8 10^3/ul (1.5-7.7); Eosinophil % 2.3 %; Hematocrit 27 % (42-52); Hemoglobin 9.2 g/dL (14.0-18.0); Lymphocyte % 7.5 %; Mean Corpuscular HGB Conc 34 g/dL (31-36); Mean Corpuscular Hemoglobin 35 pg (27-31); Mean Corpuscular Volume 102 fL (80-94); Mean Platelet Volume 8.8 fL (7.4-10.4); Nucleated Red Blood Cells % 0.1; Platelet Count 176 10^3/uL (150-450); Red Blood Count 2.64 10^6 /uL (4.18-5.48); Red Cell Distribution Width 14 % (10-15); White Blood Count 11.1 10^3/uL (3.5-10.8)
[2020-06-30 05:08] LABS: BUN/Creatinine Ratio 34.7 (8-20); Calcium 8.4 mg/dL (8.6-10.3); EGFR Non-African American 57.8 (>60); Potassium 4.3 mmol/L (3.5-5.0)
[2020-06-30] MEDS: Pantoprazole VIAL 40 MG VIAL IV SCH (05:38)
[2020-06-30] MEDS: Nystatin TOP POWDER 15 GM BTL TOPICAL SCH ×2 (13:20→21:01)
[2020-07-01] MEDS: Pantoprazole VIAL 40 MG VIAL IV SCH (05:14)
[2020-07-01 05:27] LABS: Hematocrit 28 % (42-52); Hemoglobin 9.5 g/dL (14.0-18.0); Mean Corpuscular HGB Conc 34 g/dL (31-36); Mean Corpuscular Hemoglobin 35 pg (27-31); Mean Corpuscular Volume 102 fL (80-94); Mean Platelet Volume 9.2 fL (7.4-10.4); Platelet Count 200 10^3/uL (150-450); Red Blood Count 2.71 10^6 /uL (4.18-5.48); Red Cell Distribution Width 14 % (10-15); White Blood Count 11.3 10^3/uL (3.5-10.8)
[2020-07-01 05:45] LABS: Calcium 8.4 mg/dL (8.6-10.3); Potassium 4.6 mmol/L (3.5-5.0)
[2020-07-01 05:48] LABS: ABS Basophils 0.1 10^3/ul (0-0.2); ABS Eosinophils 0.5 10^3/ul (0-0.6); ABS Lymphocytes 0.9 10^3/ul (1.0-4.8); ABS Monocytes 1.3 10^3/ul (0-0.8); ABS Neutrophils 8.6 10^3/ul (1.5-7.7); Eosinophil % 4.2 %; Lymphocyte % 7.6 %; Nucleated Red Blood Cells % 0.2
[2020-07-01 05:51] LABS: BUN/Creatinine Ratio 37.4 (8-20); EGFR African American 59.6 (>60); EGFR Non-African American 49.3 (>60)
[2020-07-01] MEDS: Nystatin TOP POWDER 15 GM BTL TOPICAL SCH ×2 (10:54→20:06)
[2020-07-02] MEDS: Pantoprazole VIAL 40 MG VIAL IV SCH (05:11)
[2020-07-02 05:55] LABS: ABS Basophils 0.1 10^3/ul (0-0.2); ABS Eosinophils 0.6 10^3/ul (0-0.6); ABS Neutrophils 7.5 10^3/ul (1.5-7.7); Eosinophil % 6.3 %; Hematocrit 27 % (42-52); Mean Corpuscular HGB Conc 34 g/dL (31-36); Mean Corpuscular Hemoglobin 35 pg (27-31); Mean Corpuscular Volume 102 fL (80-94); Mean Platelet Volume 8.7 fL (7.4-10.4); Platelet Count 238 10^3/uL (150-450); Red Blood Count 2.62 10^6 /uL (4.18-5.48); Red Cell Distribution Width 14 % (10-15); White Blood Count 10.2 10^3/uL (3.5-10.8)
[2020-07-02 06:09] LABS: BUN/Creatinine Ratio 38.5 (8-20); Calcium 8.4 mg/dL (8.6-10.3); EGFR African American 50.3 (>60); EGFR Non-African American 41.6 (>60)
[2020-07-02] MEDS: Nystatin TOP POWDER 15 GM BTL TOPICAL SCH ×2 (09:21→21:42)
[2020-07-03 05:42] LABS: BUN/Creatinine Ratio 38.7 (8-20); Calcium 8.3 mg/dL (8.6-10.3); EGFR African American 46.3 (>60); EGFR Non-African American 38.3 (>60)
[2020-07-03] MEDS: Pantoprazole VIAL 40 MG VIAL IV SCH (06:07)
[2020-07-03] MEDS: Nystatin TOP POWDER 15 GM BTL TOPICAL SCH ×2 (11:00→22:38)
[2020-07-03] MEDS ORDERED: cefTRIAXone 2 GM ADDV.VIAL 1 GM in NS 0.9% 100 ml BAG 100 ML IV SCH (14:00)
[2020-07-04 05:38] LABS: ABS Basophils 0.1 10^3/ul (0-0.2); ABS Eosinophils 0.5 10^3/ul (0-0.6); ABS Monocytes 0.7 10^3/ul (0-0.8); ABS Neutrophils 6.7 10^3/ul (1.5-7.7); Eosinophil % 5.3 %; Hematocrit 26 % (42-52); Hemoglobin 8.8 g/dL (14.0-18.0); Lymphocyte % 11.5 %; Mean Corpuscular HGB Conc 34 g/dL (31-36); Mean Corpuscular Hemoglobin 35 pg (27-31); Mean Corpuscular Volume 100 fL (80-94); Mean Platelet Volume 8.2 fL (7.4-10.4); Platelet Count 286 10^3/uL (150-450); Red Blood Count 2.54 10^6 /uL (4.18-5.48); Red Cell Distribution Width 14 % (10-15)
[2020-07-04 06:06] LABS: BUN/Creatinine Ratio 41.5 (8-20); Calcium 8.3 mg/dL (8.6-10.3); EGFR African American 49.3 (>60); EGFR Non-African American 40.7 (>60); Potassium 3.9 mmol/L (3.5-5.0)
[2020-07-04] MEDS: Pantoprazole VIAL 40 MG VIAL IV SCH (06:30)
[2020-07-04] MEDS: Nystatin TOP POWDER 15 GM BTL TOPICAL SCH (08:13)
[2020-07-04 12:58] LABS: Albumin 2.6 g/dL (3.2-5.2); Albumin/Globulin Ratio 0.9 (1-3); BUN/Creatinine Ratio 38.9 (8-20); Calcium 8.5 mg/dL (8.6-10.3); EGFR African American 48.3 (>60); EGFR Non-African American 39.9 (>60); Potassium 3.8 mmol/L (3.5-5.0); Total Bilirubin 0.8 mg/dL (0.2-1.0); Total Protein 5.6 g/dL (6.4-8.9)
[2020-07-04] MEDS: Acetaminop/Codeine 300mg/30mg TAB PO PRN ×2 (13:58→20:47)
[2020-07-05] MEDS: Nystatin TOP POWDER 15 GM BTL TOPICAL SCH ×3 (00:21→19:33)
[2020-07-05] MEDS: Acetaminop/Codeine 300mg/30mg TAB PO PRN ×5 (00:54→23:16)
[2020-07-05 04:55] LABS: BUN/Creatinine Ratio 44.8 (8-20); Calcium 8.5 mg/dL (8.6-10.3); EGFR African American 57.7 (>60); EGFR Non-African American 47.7 (>60); Potassium 3.9 mmol/L (3.5-5.0)
[2020-07-05 13:13] LABS: TSH Ultra Thyroid Stim Horm 5.74 mcIU/mL (0.34-5.60)
[2020-07-05 18:37] LABS: ABS Basophils 0.1 10^3/ul (0-0.2); ABS Eosinophils 0.4 10^3/ul (0-0.6); ABS Lymphocytes 1.4 10^3/ul (1.0-4.8); ABS Monocytes 0.6 10^3/ul (0-0.8); ABS Neutrophils 7.1 10^3/ul (1.5-7.7); Eosinophil % 3.9 %; Hematocrit 28 % (42-52); Hemoglobin 9.5 g/dL (14.0-18.0); Lymphocyte % 14.9 %; Mean Corpuscular HGB Conc 34 g/dL (31-36); Mean Corpuscular Hemoglobin 34 pg (27-31); Mean Corpuscular Volume 102 fL (80-94); Mean Platelet Volume 8.5 fL (7.4-10.4); Platelet Count 348 10^3/uL (150-450); Red Blood Count 2.76 10^6 /uL (4.18-5.48); Red Cell Distribution Width 14 % (10-15); White Blood Count 9.6 10^3/uL (3.5-10.8)
[2020-07-06] MEDS: Acetaminop/Codeine 300mg/30mg TAB PO PRN (06:50)
[2020-07-06 12:03] VITALS: BP 125/55
== END 2020-07-06 08:16 | disposition swing bed (61) | DRG 481 ==
LOC: ED 02:09 → SSU 05:45
PROVIDERS: ADMIT Internal Medicine; ATTEND Internal Medicine

== ENCOUNTER 2020-07-06 09:19 | Inpatient (IN) ==
[2020-07-06] MEDS ORDERED: Ondansetron 4 mg VIAL 2 MG/ML 2 ml VIAL IV PRN (09:24)
[2020-07-06] MEDS ORDERED: Polyethylene Glycol 3350 17 GM PACKET PO PRN (09:24)
[2020-07-06] MEDS ORDERED: Al Hydrox/Mg Hydrox/Simet LIQ 30 ML UDC PO PRN (09:24)
[2020-07-06] MEDS: Acetaminop/Codeine 300mg/30mg TAB PO PRN ×2 (10:54→21:14)
[2020-07-06] MEDS: Nystatin TOP POWDER 15 GM BTL TOPICAL SCH ×2 (12:17→23:00)
[2020-07-07] MEDS: Acetaminop/Codeine 300mg/30mg TAB PO PRN ×4 (02:33→19:48)
[2020-07-07] MEDS: Nystatin TOP POWDER 15 GM BTL TOPICAL SCH ×2 (08:58→21:34)
[2020-07-08] MEDS: Acetaminop/Codeine 300mg/30mg TAB PO PRN ×5 (01:57→23:32)
[2020-07-08] MEDS: Nystatin TOP POWDER 15 GM BTL TOPICAL SCH ×2 (08:54→22:13)
[2020-07-09] MEDS: Acetaminop/Codeine 300mg/30mg TAB PO PRN ×4 (06:06→20:17)
[2020-07-09] MEDS: Nystatin TOP POWDER 15 GM BTL TOPICAL SCH ×2 (09:01→20:18)
[2020-07-10] MEDS: Acetaminop/Codeine 300mg/30mg TAB PO PRN ×5 (00:25→20:02)
[2020-07-10] MEDS: Nystatin TOP POWDER 15 GM BTL TOPICAL SCH ×2 (09:14→20:02)
[2020-07-11] MEDS: Acetaminop/Codeine 300mg/30mg TAB PO PRN ×5 (01:11→22:22)
[2020-07-11 09:02] LABS: BUN/Creatinine Ratio 23.5 (8-20); Calcium 7.8 mg/dL (8.6-10.3); EGFR African American 105.2 (>60); Potassium 3.9 mmol/L (3.5-5.0)
[2020-07-11] MEDS: Nystatin TOP POWDER 15 GM BTL TOPICAL SCH (09:25)
[2020-07-12] MEDS: Nystatin TOP POWDER 15 GM BTL TOPICAL SCH ×3 (04:11→20:18)
[2020-07-12] MEDS ORDERED: NS 0.9% 500 ml BAG 500 ML IV ONE (04:37)
[2020-07-12 04:55] LABS: BUN/Creatinine Ratio 21.3 (8-20); Calcium 7.8 mg/dL (8.6-10.3); EGFR African American 79.8 (>60); Potassium 4.4 mmol/L (3.5-5.0)
[2020-07-12] MEDS: Acetaminop/Codeine 300mg/30mg TAB PO PRN ×4 (08:50→23:34)
[2020-07-12 10:48] LABS: BUN/Creatinine Ratio 22.5 (8-20); Calcium 7.7 mg/dL (8.6-10.3); EGFR African American 85.2 (>60); EGFR Non-African American 70.5 (>60); Potassium 3.7 mmol/L (3.5-5.0)
[2020-07-12 18:57] LABS: Urine Appearance Clear; Urine Bilirubin Negative (Negative); Urine Blood Negative (Negative); Urine Color Yellow; Urine Glucose Negative (Negative); Urine Ketones Negative (Negative); Urine Nitrite Negative (Negative); Urine Protein Negative (Negative); Urine Specific Gravity 1.015 (1.010-1.030); Urine Urobilinogen Negative (Negative)
[2020-07-13] MEDS: Acetaminop/Codeine 300mg/30mg TAB PO PRN ×5 (06:28→22:26)
[2020-07-13] MEDS: Nystatin TOP POWDER 15 GM BTL TOPICAL SCH ×2 (10:50→19:33)
[2020-07-14] MEDS: Acetaminop/Codeine 300mg/30mg TAB PO PRN ×3 (02:45→19:33)
[2020-07-14] MEDS ORDERED: HYDROmorphone 0.5 MG/0.5 ML SYRINGE IV SLOW PU ONE (04:18)
[2020-07-14 06:40] LABS: ABS Eosinophils 0.3 10^3/ul (0-0.6); ABS Lymphocytes 1.3 10^3/ul (1.0-4.8); ABS Monocytes 0.5 10^3/ul (0-0.8); ABS Neutrophils 4.2 10^3/ul (1.5-7.7); Eosinophil % 5.3 %; Hematocrit 29 % (42-52); Hemoglobin 9.9 g/dL (14.0-18.0); Lymphocyte % 20.4 %; Mean Corpuscular HGB Conc 34 g/dL (31-36); Mean Corpuscular Hemoglobin 34 pg (27-31); Mean Corpuscular Volume 101 fL (80-94); Mean Platelet Volume 8.7 fL (7.4-10.4); Platelet Count 237 10^3/uL (150-450); Red Blood Count 2.91 10^6 /uL (4.18-5.48); Red Cell Distribution Width 15 % (10-15); White Blood Count 6.3 10^3/uL (3.5-10.8)
[2020-07-14 07:12] LABS: BUN/Creatinine Ratio 23.3 (8-20); Calcium 8.4 mg/dL (8.6-10.3); EGFR African American 98.5 (>60); EGFR Non-African American 81.4 (>60); Potassium 3.5 mmol/L (3.5-5.0)
[2020-07-14 07:34] LABS: TSH Ultra Thyroid Stim Horm 3.88 mcIU/mL (0.34-5.60)
[2020-07-14 07:35] LABS: Free T4 1.38 ng/dL (0.61-1.12)
[2020-07-14 07:41] LABS: Thyroid Peroxidase Antibodies 0.25 IU/mL (<9)
[2020-07-14] MEDS: Nystatin TOP POWDER 15 GM BTL TOPICAL SCH ×2 (09:00→19:35)
[2020-07-15] MEDS: Acetaminop/Codeine 300mg/30mg TAB PO PRN ×4 (01:26→22:55)
[2020-07-15] MEDS: Nystatin TOP POWDER 15 GM BTL TOPICAL SCH ×2 (08:02→20:04)
[2020-07-16] MEDS: Acetaminop/Codeine 300mg/30mg TAB PO PRN ×3 (02:49→21:40)
[2020-07-16] MEDS: Morphine 2 MG/ML SYRINGE IV PRN (05:01)
[2020-07-16] MEDS: Nystatin TOP POWDER 15 GM BTL TOPICAL SCH ×2 (08:37→21:43)
[2020-07-17] MEDS: Acetaminop/Codeine 300mg/30mg TAB PO PRN ×2 (06:18→19:07)
[2020-07-17] MEDS: Cholecalciferol (VIT D3) 1,000 unit TAB PO SCH (09:31)
[2020-07-17] MEDS: Nystatin TOP POWDER 15 GM BTL TOPICAL SCH ×2 (09:41→21:16)
[2020-07-18] MEDS: Acetaminop/Codeine 300mg/30mg TAB PO PRN ×2 (00:25→07:48)
[2020-07-18] MEDS: Morphine 2 MG/ML SYRINGE IV PRN (02:25)
[2020-07-18 07:58] VITALS: BP 124/49
[2020-07-18] MEDS: Cholecalciferol (VIT D3) 1,000 unit TAB PO SCH (10:24)
[2020-07-18] MEDS: Nystatin TOP POWDER 15 GM BTL TOPICAL SCH (10:26)
== END 2020-07-18 10:30 | DRG 536 ==
LOC: SSU 09:21 → MEDTELE 07-12 18:08 → SSU 07-15 22:10
PROVIDERS: ADMIT Internal Medicine; ATTEND Internal Medicine

== ENCOUNTER 2020-10-17 05:17 | Inpatient (IN) ==
[2020-10-17] MEDS ORDERED: NS 0.9% 1000 ml BAG 1,000 ML IV ONE (05:38)
[2020-10-17 06:17] LABS: ABS Basophils 0.1 10^3/ul (0-0.2); ABS Eosinophils 0.2 10^3/ul (0-0.6); ABS Lymphocytes 1.3 10^3/ul (1.0-4.8); ABS Monocytes 0.5 10^3/ul (0-0.8); ABS Neutrophils 4.1 10^3/ul (1.5-7.7); Hematocrit 31 % (42-52); Hemoglobin 10.5 g/dL (14.0-18.0); Lymphocyte % 21.8 %; Mean Corpuscular HGB Conc 34 g/dL (31-36); Mean Corpuscular Hemoglobin 31 pg (27-31); Mean Corpuscular Volume 92 fL (80-94); Platelet Count 159 10^3/uL (150-450); Red Blood Count 3.41 10^6 /uL (4.18-5.48); Red Cell Distribution Width 15 % (10-15); White Blood Count 6.2 10^3/uL (3.5-10.8)
[2020-10-17 06:29] LABS: Activated Partial Thrombo Time 36.8 seconds (26.0-38.0); INR 1.74 (0.82-1.09)
[2020-10-17 06:36] LABS: Albumin 2.5 g/dL (3.2-5.2); Calcium 7.9 mg/dL (8.6-10.3); Potassium 4.1 mmol/L (3.5-5.0); Total Bilirubin 0.5 mg/dL (0.2-1.0)
[2020-10-17 06:41] LABS: Albumin/Globulin Ratio 1.3 (1-3); BUN/Creatinine Ratio 24.5 (8-20); EGFR African American 93.4 (>60); EGFR Non-African American 77.2 (>60); Globulin 1.9 g/dL (2-4); Total Protein 4.4 g/dL (6.4-8.9)
[2020-10-17 09:02] LABS: Magnesium 1.3 mg/dL (1.9-2.7)
[2020-10-17] MEDS ORDERED: Magnesium Sulfate 2 gm BAG 2 GM/50 ML BAG IVPB ONE (09:03)
[2020-10-17] MEDS ORDERED: Magnesium Hydroxide LIQ 30 ML UDC PO PRN (09:49)
[2020-10-17 09:50] LABS: Urine Appearance Cloudy; Urine Bilirubin Negative (Negative); Urine Blood 2+ (Negative); Urine Color Amber; Urine Glucose Negative (Negative); Urine Ketones Negative (Negative); Urine Nitrite Positive (Negative); Urine Protein 2+(100 mg/dL) (Negative); Urine Specific Gravity 1.016 (1.002-1.030); Urine Urobilinogen Negative (Negative)
[2020-10-17] MEDS ORDERED: Pantoprazole VIAL 40 MG VIAL IV ONE (09:52)
[2020-10-17 09:55] LABS: Urine Bacteria 3+ (Absent); Urine Red Blood Cell 3+(>10/hpf) (Absent); Urine White Blood Cell 3+(>20/hpf) (Absent)
[2020-10-17 10:11] LABS: Hematocrit 28 % (42-52); Hemoglobin 9.5 g/dL (14.0-18.0)
[2020-10-17] MEDS: Pantoprazole 80 mg in NS BAG 80 MG/250 ML BAG IV SCH ×2 (10:43→23:05)
[2020-10-17] MEDS: NS 0.9% 1000 ml BAG 1,000 ML IV SCH ×2 (13:19→23:04)
[2020-10-17] MEDS ORDERED: PEG 3000 GI LAVAGE 1 GALLON PO ONE (14:58)
[2020-10-17 18:11] LABS: Hematocrit 30 % (42-52)
[2020-10-18 02:16] LABS: Hematocrit 30 % (42-52); Hemoglobin 9.7 g/dL (14.0-18.0)
[2020-10-18] MEDS ORDERED: PEG 3000 GI LAVAGE 1 GALLON PO ONE (07:00)
[2020-10-18 08:18] LABS: ABS Eosinophils 0.2 10^3/ul (0-0.6); ABS Lymphocytes 1.5 10^3/ul (1.0-4.8); ABS Monocytes 0.3 10^3/ul (0-0.8); ABS Neutrophils 2.4 10^3/ul (1.5-7.7); Eosinophil % 4.8 %; Hematocrit 29 % (42-52); Hemoglobin 9.7 g/dL (14.0-18.0); Lymphocyte % 33.3 %; Mean Corpuscular HGB Conc 34 g/dL (31-36); Mean Corpuscular Hemoglobin 31 pg (27-31); Mean Corpuscular Volume 92 fL (80-94); Mean Platelet Volume 9.2 fL (7.4-10.4); Platelet Count 142 10^3/uL (150-450); Red Cell Distribution Width 15 % (10-15); White Blood Count 4.4 10^3/uL (3.5-10.8)
[2020-10-18 08:37] LABS: Anion Gap 5 mmol/L (2-11); BUN/Creatinine Ratio 18.8 (8-20); Blood Urea Nitrogen 15 mg/dL (6-24); CO2 Carbon Dioxide 30 mmol/L (22-32); Calcium 7.9 mg/dL (8.6-10.3); Chloride 110 mmol/L (101-111); EGFR African American 112.5 (>60); Glucose 70 mg/dL (70-100); Magnesium 1.7 mg/dL (1.9-2.7); Potassium 3.8 mmol/L (3.5-5.0); Sodium 145 mmol/L (135-145)
[2020-10-18] MEDS: NS 0.9% 1000 ml BAG 1,000 ML IV SCH ×2 (10:22→21:52)
[2020-10-18] MEDS: Pantoprazole VIAL 40 MG VIAL IV SCH ×2 (10:23→21:53)
[2020-10-18] MEDS: Cholecalciferol (VIT D3) 1,000 unit TAB PO SCH (10:27)
[2020-10-18] MEDS ORDERED: fentaNYL 100 mcg/2 ml 50 MCG/ML VIAL ONE (14:38)
[2020-10-18] MEDS ORDERED: Midazolam 10 mg/10 ml VIAL 1 mg/ml 10 ml VIAL (10 mg) ONE (14:38)
[2020-10-18] MEDS ORDERED: Magnesium Sulfate 2 gm BAG 2 GM/50 ML BAG IVPB ONE (16:55)
[2020-10-18 19:19] LABS: % Iron Saturation 20 % (15-55); Iron 37 ug/dL (50-212); Total Iron Binding Capacity 182 mcg/dL (250-450); Transferrin 130 mg/dL (203-362); Unsaturated Iron Binding < 167 ug/dL
[2020-10-18 19:28] LABS: Ferritin 133.6 ng/mL (24-336)
[2020-10-19 06:57] LABS: Hematocrit 27 % (42-52); Hemoglobin 9.1 g/dL (14.0-18.0); Mean Corpuscular HGB Conc 33 g/dL (31-36); Mean Corpuscular Hemoglobin 31 pg (27-31); Mean Corpuscular Volume 92 fL (80-94); Mean Platelet Volume 8.6 fL (7.4-10.4); Platelet Count 141 10^3/uL (150-450); Red Blood Count 2.97 10^6 /uL (4.18-5.48); Red Cell Distribution Width 15 % (10-15); White Blood Count 3.9 10^3/uL (3.5-10.8)
[2020-10-19] MEDS: Cholecalciferol (VIT D3) 1,000 unit TAB PO SCH (09:56)
[2020-10-19] MEDS: Pantoprazole 80 mg in NS BAG 80 MG/250 ML BAG IV SCH ×2 (09:56→20:02)
[2020-10-19] MEDS: Acetaminop/Codeine 300mg/30mg TAB PO PRN (10:07)
[2020-10-20] MEDS: Pantoprazole 80 mg in NS BAG 80 MG/250 ML BAG IV SCH ×2 (06:08→19:41)
[2020-10-20 06:14] LABS: ABS Eosinophils 0.2 10^3/ul (0-0.6); ABS Lymphocytes 1.2 10^3/ul (1.0-4.8); ABS Monocytes 0.2 10^3/ul (0-0.8); Eosinophil % 5.2 %; Hematocrit 28 % (42-52); Hemoglobin 9.2 g/dL (14.0-18.0); Lymphocyte % 32.4 %; Mean Corpuscular HGB Conc 33 g/dL (31-36); Mean Corpuscular Hemoglobin 31 pg (27-31); Mean Corpuscular Volume 92 fL (80-94); Mean Platelet Volume 8.5 fL (7.4-10.4); Nucleated Red Blood Cells % 0.1; Platelet Count 154 10^3/uL (150-450); Red Cell Distribution Width 15 % (10-15); White Blood Count 3.6 10^3/uL (3.5-10.8)
[2020-10-20] MEDS ORDERED: Iron Sucrose 20 MG/ML 5 ML VIAL IV PUSH SCH (09:00)
[2020-10-20] MEDS: Cholecalciferol (VIT D3) 1,000 unit TAB PO SCH (11:13)
[2020-10-20] MEDS: Iron Sucrose 200 MG in NS 0.9% 100 ml IVPB SCH (11:14)
[2020-10-20 14:17] LABS: BUN/Creatinine Ratio 8.6 (8-20); EGFR African American 94.6 (>60); EGFR Non-African American 78.2 (>60); Potassium 3.3 mmol/L (3.5-5.0)
[2020-10-20 16:18] LABS: Magnesium 1.4 mg/dL (1.9-2.7)
[2020-10-20] MEDS ORDERED: Magnesium Sulfate IV 3 GM in NS 0.9% 100 ml BAG 100 ML IVPB ONE (16:35)
[2020-10-20] MEDS: Acetaminop/Codeine 300mg/30mg TAB PO PRN (17:58)
[2020-10-20] MEDS: KCL 10 MEQ/50 ML IVPREMIX 10 MEQ/50 ML BAG IV SCH ×2 (20:48→23:32)
[2020-10-21] MEDS: Acetaminop/Codeine 300mg/30mg TAB PO PRN ×2 (00:13→17:17)
[2020-10-21] MEDS: KCL 10 MEQ/50 ML IVPREMIX 10 MEQ/50 ML BAG IV SCH (01:40)
[2020-10-21 06:06] LABS: ABS Eosinophils 0.2 10^3/ul (0-0.6); ABS Lymphocytes 1.2 10^3/ul (1.0-4.8); ABS Monocytes 0.4 10^3/ul (0-0.8); ABS Neutrophils 2.1 10^3/ul (1.5-7.7); Eosinophil % 4.4 %; Hematocrit 27 % (42-52); Hemoglobin 8.8 g/dL (14.0-18.0); Lymphocyte % 31.9 %; Mean Corpuscular HGB Conc 33 g/dL (31-36); Mean Corpuscular Hemoglobin 31 pg (27-31); Mean Corpuscular Volume 92 fL (80-94); Platelet Count 158 10^3/uL (150-450); Red Cell Distribution Width 15 % (10-15); White Blood Count 3.9 10^3/uL (3.5-10.8)
[2020-10-21 06:24] LABS: BUN/Creatinine Ratio 8.1 (8-20); Calcium 7.9 mg/dL (8.6-10.3); EGFR African American 103.5 (>60); EGFR Non-African American 85.6 (>60); Magnesium 1.9 mg/dL (1.9-2.7); Potassium 3.5 mmol/L (3.5-5.0)
[2020-10-21] MEDS: Pantoprazole 80 mg in NS BAG 80 MG/250 ML BAG IV SCH ×2 (06:32→19:57)
[2020-10-21] MEDS: Iron Sucrose 200 MG in NS 0.9% 100 ml IVPB SCH (09:48)
[2020-10-21] MEDS: Cholecalciferol (VIT D3) 1,000 unit TAB PO SCH (09:49)
[2020-10-21 19:19] LABS: Troponin I 0.03 ng/mL (<0.03)
[2020-10-21 21:43] LABS: Troponin I 0.03 ng/mL (<0.03)
[2020-10-22 04:56] LABS: ABS Eosinophils 0.3 10^3/ul (0-0.6); ABS Lymphocytes 1.2 10^3/ul (1.0-4.8); ABS Monocytes 0.5 10^3/ul (0-0.8); ABS Neutrophils 3.5 10^3/ul (1.5-7.7); Hematocrit 27 % (42-52); Hemoglobin 9.2 g/dL (14.0-18.0); Lymphocyte % 22.2 %; Mean Corpuscular HGB Conc 35 g/dL (31-36); Mean Corpuscular Hemoglobin 32 pg (27-31); Mean Corpuscular Volume 92 fL (80-94); Mean Platelet Volume 9.4 fL (7.4-10.4); Nucleated Red Blood Cells % 0.1; Platelet Count 173 10^3/uL (150-450); Red Blood Count 2.91 10^6 /uL (4.18-5.48); Red Cell Distribution Width 15 % (10-15); White Blood Count 5.5 10^3/uL (3.5-10.8)
[2020-10-22] MEDS: Pantoprazole 80 mg in NS BAG 80 MG/250 ML BAG IV SCH (05:51)
[2020-10-22] MEDS: Iron Sucrose 200 MG in NS 0.9% 100 ml IVPB SCH (08:11)
[2020-10-22] MEDS: Cholecalciferol (VIT D3) 1,000 unit TAB PO SCH (08:12)
[2020-10-22] MEDS: cefTRIAXone 1 gm/50 mL NS BAG 1 GM/50 ML BAG IVPB SCH (16:55)
[2020-10-22] MEDS ORDERED: Iodixanol (CONTRAST) 320 MG/ML 100 ML SDV IV ONE (17:35)
[2020-10-23 07:11] LABS: Anion Gap 5 mmol/L (2-11); BUN/Creatinine Ratio 6.3 (8-20); Blood Urea Nitrogen 6 mg/dL (6-24); CO2 Carbon Dioxide 31 mmol/L (22-32); Calcium 8.1 mg/dL (8.6-10.3); Chloride 106 mmol/L (101-111); EGFR African American 92.3 (>60); EGFR Non-African American 76.3 (>60); Glucose 70 mg/dL (70-100); Potassium 3.2 mmol/L (3.5-5.0); Sodium 142 mmol/L (135-145)
[2020-10-23 07:54] LABS: Troponin I 0.03 ng/mL (<0.03)
[2020-10-23] MEDS ORDERED: Regadenoson 0.4 MG/5 ML SYRINGE ONE ×2 (10:11→12:10)
[2020-10-23] MEDS: Cholecalciferol (VIT D3) 1,000 unit TAB PO SCH (11:06)
[2020-10-23] MEDS: Iron Sucrose 200 MG in NS 0.9% 100 ml IVPB SCH (11:07)
[2020-10-23] MEDS ORDERED: Potassium Chlor 20 meq TAB.ER PO ONE (11:36)
[2020-10-23] MEDS ORDERED: Aminophylline 25 MG/ML VIAL ONE (12:10)
[2020-10-23 12:48] LABS: C Reactive Protein 24.75 mg/L (<8.01)
[2020-10-23] MEDS: cefTRIAXone 1 gm/50 mL NS BAG 1 GM/50 ML BAG IVPB SCH (16:06)
[2020-10-23] MEDS: Acetaminop/Codeine 300mg/30mg TAB PO PRN (20:40)
[2020-10-24 05:57] LABS: ABS Eosinophils 0.3 10^3/ul (0-0.6); ABS Lymphocytes 1.1 10^3/ul (1.0-4.8); ABS Monocytes 0.5 10^3/ul (0-0.8); ABS Neutrophils 3.1 10^3/ul (1.5-7.7); Eosinophil % 5.6 %; Hematocrit 27 % (42-52); Hemoglobin 9.1 g/dL (14.0-18.0); Lymphocyte % 21.6 %; Mean Corpuscular HGB Conc 34 g/dL (31-36); Mean Corpuscular Hemoglobin 31 pg (27-31); Mean Corpuscular Volume 92 fL (80-94); Platelet Count 164 10^3/uL (150-450); Red Blood Count 2.93 10^6 /uL (4.18-5.48); Red Cell Distribution Width 15 % (10-15)
[2020-10-24 06:11] LABS: Calcium 8.1 mg/dL (8.6-10.3); EGFR African American 94.6 (>60); EGFR Non-African American 78.2 (>60); Potassium 3.3 mmol/L (3.5-5.0)
[2020-10-24 08:35] LABS: Magnesium 1.3 mg/dL (1.9-2.7)
[2020-10-24] MEDS ORDERED: Aminophylline 25 MG/ML VIAL ONE (08:48)
[2020-10-24] MEDS ORDERED: Regadenoson 0.4 MG/5 ML SYRINGE ONE (08:48)
[2020-10-24] MEDS ORDERED: Magnesium Sulf 4 GM/100 ML IV 4,000 MG/100 ML BAG IVPB ONE (10:00)
[2020-10-24] MEDS: Iron Sucrose 200 MG in NS 0.9% 100 ml IVPB SCH (10:07)
[2020-10-24] MEDS: Cholecalciferol (VIT D3) 1,000 unit TAB PO SCH (10:07)
[2020-10-24] MEDS ORDERED: Potassium Chloride LIQUID 20 MEQ/15 ML LIQUID PO ONE (12:22)
[2020-10-24] MEDS: KCL 20 MEQ/100 ML IVPREMIX 20 MEQ/100 ML BAG IV SCH ×2 (12:56→12:57)
[2020-10-24] MEDS: cefTRIAXone 1 gm/50 mL NS BAG 1 GM/50 ML BAG IVPB SCH (15:52)
[2020-10-25] MEDS: Cholecalciferol (VIT D3) 1,000 unit TAB PO SCH (08:35)
[2020-10-25 09:09] LABS: ABS Eosinophils 0.3 10^3/ul (0-0.6); ABS Monocytes 0.5 10^3/ul (0-0.8); ABS Neutrophils 3.3 10^3/ul (1.5-7.7); Hematocrit 30 % (42-52); Hemoglobin 9.8 g/dL (14.0-18.0); Lymphocyte % 19.2 %; Mean Corpuscular HGB Conc 33 g/dL (31-36); Mean Corpuscular Hemoglobin 31 pg (27-31); Mean Corpuscular Volume 94 fL (80-94); Platelet Count 188 10^3/uL (150-450); Red Blood Count 3.13 10^6 /uL (4.18-5.48); Red Cell Distribution Width 15 % (10-15)
[2020-10-25 09:28] LABS: Calcium 8.3 mg/dL (8.6-10.3); EGFR African American 103.5 (>60); EGFR Non-African American 85.6 (>60); Magnesium 1.9 mg/dL (1.9-2.7); Potassium 3.8 mmol/L (3.5-5.0)
[2020-10-25 11:30] VITALS: BP 118/49
== END 2020-10-25 12:15 | DRG 378 ==
LOC: ED 05:17 → MEDTELE 08:51
PROVIDERS: ADMIT Internal Medicine; ATTEND Internal Medicine

== ENCOUNTER 2021-02-24 16:37 | Inpatient (IN) ==
[2021-02-24 17:35] LABS: ABS Eosinophils 0.1 10^3/ul (0-0.6); ABS Lymphocytes 1.1 10^3/ul (1.0-4.8); ABS Monocytes 0.6 10^3/ul (0-0.8); Eosinophil % 1.8 %; Hematocrit 36 % (42-52); Hemoglobin 12.2 g/dL (14.0-18.0); Lymphocyte % 19.5 %; Mean Corpuscular HGB Conc 34 g/dL (31-36); Mean Corpuscular Hemoglobin 31 pg (27-31); Mean Corpuscular Volume 92 fL (80-94); Mean Platelet Volume 8.7 fL (7.4-10.4); Platelet Count 206 10^3/uL (150-450); Red Blood Count 3.87 10^6 /uL (4.18-5.48); Red Cell Distribution Width 16 % (10-15); White Blood Count 5.9 10^3/uL (3.5-10.8)
[2021-02-24 17:41] LABS: INR 1.16 (0.86-1.15)
[2021-02-24 18:02] LABS: Albumin 2.3 g/dL (3.2-5.2); Albumin/Globulin Ratio 0.8 (1-3); Calcium 7.9 mg/dL (8.6-10.3); EGFR African American 94.6 (>60); EGFR Non-African American 78.2 (>60); Globulin 2.8 g/dL (2-4); Magnesium 1.3 mg/dL (1.9-2.7); Potassium 3.1 mmol/L (3.5-5.0); Total Bilirubin 0.5 mg/dL (0.2-1.0); Total Protein 5.1 g/dL (6.4-8.9)
[2021-02-24] MEDS ORDERED: Ondansetron 4 mg VIAL 2 MG/ML 2 ml VIAL IV PRN (20:16)
[2021-02-24] MEDS ORDERED: Magnesium Sulfate IV 3 GM in NS 0.9% 100 ml BAG 100 ML IVPB ONE (20:38)
[2021-02-24] MEDS: KCL 10 MEQ/50 ML IVPREMIX 10 MEQ/50 ML BAG IV SCH (22:01)
[2021-02-25] MEDS: KCL 10 MEQ/50 ML IVPREMIX 10 MEQ/50 ML BAG IV SCH ×3 (00:43→04:17)
[2021-02-25] MEDS: Enoxaparin 80 MG/0.8 ML SYR SUBCUT SCH ×2 (00:44→12:59)
[2021-02-25 02:48] LABS: Urine Appearance Cloudy; Urine Bilirubin Negative (Negative); Urine Blood Negative (Negative); Urine Color Yellow; Urine Glucose Negative (Negative); Urine Ketones Trace (Negative); Urine Nitrite Negative (Negative); Urine Protein Negative (Negative); Urine Specific Gravity 1.012 (1.002-1.030); Urine Urobilinogen Negative (Negative)
[2021-02-25 03:25] LABS: Urine Bacteria 1+ (Absent); Urine Red Blood Cell 1+(3-5/hpf) (Absent); Urine White Blood Cell 2+(11-20/hpf) (Absent)
[2021-02-25 06:50] LABS: ABS Eosinophils 0.2 10^3/ul (0-0.6); ABS Lymphocytes 1.3 10^3/ul (1.0-4.8); ABS Monocytes 0.5 10^3/ul (0-0.8); ABS Neutrophils 3.4 10^3/ul (1.5-7.7); Eosinophil % 3.8 %; Hematocrit 35 % (42-52); Lymphocyte % 23.6 %; Mean Corpuscular HGB Conc 34 g/dL (31-36); Mean Corpuscular Hemoglobin 32 pg (27-31); Mean Corpuscular Volume 93 fL (80-94); Mean Platelet Volume 8.3 fL (7.4-10.4); Platelet Count 188 10^3/uL (150-450); Red Cell Distribution Width 16 % (10-15); White Blood Count 5.4 10^3/uL (3.5-10.8)
[2021-02-25 06:57] LABS: INR 1.12 (0.86-1.15)
[2021-02-25 07:09] LABS: Calcium 7.6 mg/dL (8.6-10.3); EGFR African American 121.2 (>60); EGFR Non-African American 100.2 (>60); Potassium 3.7 mmol/L (3.5-5.0)
[2021-02-25] MEDS: Cholecalciferol (VIT D3) 1,000 unit TAB PO SCH (09:17)
[2021-02-25 11:58] LABS: Magnesium 1.7 mg/dL (1.9-2.7)
[2021-02-25] MEDS: Nystatin TOP POWDER 15 GM BTL TOPICAL SCH ×2 (12:59→19:55)
[2021-02-25] MEDS ORDERED: Magnesium Sulfate 2 gm BAG 2 GM/50 ML BAG IVPB ONE (16:25)
[2021-02-25] MEDS ORDERED: Warfarin per PHARMACY **NOTE FOLLOW UP SCH (17:00)
[2021-02-26] MEDS: Enoxaparin 80 MG/0.8 ML SYR SUBCUT SCH ×2 (01:06→13:53)
[2021-02-26 07:32] LABS: Hematocrit 32 % (42-52); Mean Corpuscular HGB Conc 34 g/dL (31-36); Mean Corpuscular Hemoglobin 32 pg (27-31); Mean Corpuscular Volume 93 fL (80-94); Mean Platelet Volume 8.7 fL (7.4-10.4); Platelet Count 185 10^3/uL (150-450); Red Blood Count 3.47 10^6 /uL (4.18-5.48); Red Cell Distribution Width 16 % (10-15); White Blood Count 5.2 10^3/uL (3.5-10.8)
[2021-02-26 07:38] LABS: INR 2.23 (0.86-1.15)
[2021-02-26 07:51] LABS: Calcium 7.6 mg/dL (8.6-10.3); EGFR African American 121.2 (>60); EGFR Non-African American 100.2 (>60); Magnesium 1.9 mg/dL (1.9-2.7); Potassium 3.5 mmol/L (3.5-5.0)
[2021-02-26] MEDS: Nystatin TOP POWDER 15 GM BTL TOPICAL SCH ×2 (08:08→21:04)
[2021-02-26] MEDS: Cholecalciferol (VIT D3) 1,000 unit TAB PO SCH (08:08)
[2021-02-26] MEDS ORDERED: Perflutren Lipid Microsphere 3 ML VIAL ONE (12:35)
[2021-02-26] MEDS ORDERED: CALCIUM GLUCONATE 1GM/50ML NS 1 GM/50 ML BAG IV ONE (22:50)
[2021-02-26] MEDS ORDERED: Magnesium Sulfate 2 gm BAG 2 GM/50 ML BAG IVPB ONE (22:51)
[2021-02-26] MEDS: KCL 20 MEQ/100 ML IVPREMIX 20 MEQ/100 ML BAG IV SCH (23:35)
[2021-02-27] MEDS: Enoxaparin 80 MG/0.8 ML SYR SUBCUT SCH (00:51)
[2021-02-27] MEDS: KCL 20 MEQ/100 ML IVPREMIX 20 MEQ/100 ML BAG IV SCH (02:16)
[2021-02-27 05:34] LABS: Hematocrit 35 % (42-52); Hemoglobin 11.8 g/dL (14.0-18.0); INR 2.91 (0.86-1.15); Mean Corpuscular HGB Conc 34 g/dL (31-36); Mean Corpuscular Hemoglobin 32 pg (27-31); Mean Corpuscular Volume 94 fL (80-94); Mean Platelet Volume 8.8 fL (7.4-10.4); Platelet Count 205 10^3/uL (150-450); Red Blood Count 3.72 10^6 /uL (4.18-5.48); Red Cell Distribution Width 17 % (10-15); White Blood Count 4.4 10^3/uL (3.5-10.8)
[2021-02-27 05:51] LABS: Calcium 7.7 mg/dL (8.6-10.3); EGFR African American 131.3 (>60); EGFR Non-African American 108.5 (>60); Potassium 4.2 mmol/L (3.5-5.0)
[2021-02-27 06:26] LABS: Magnesium 2.2 mg/dL (1.9-2.7)
[2021-02-27] MEDS: Cholecalciferol (VIT D3) 1,000 unit TAB PO SCH (08:41)
[2021-02-27] MEDS: Nystatin TOP POWDER 15 GM BTL TOPICAL SCH ×2 (08:44→23:41)
[2021-02-27] MEDS ORDERED: D5LR 20 MEQ KCL 1000 ml BAG 1,000 ML IV SCH (11:00)
[2021-02-27] MEDS ORDERED: Warfarin - No Order Today **NOTE FOLLOW UP ONE (17:00)
[2021-02-27] MEDS: Nitrofurantoin (monohydrate/macrocrystals) 100 mg CAP PO SCH (20:44)
[2021-02-28 05:58] LABS: INR 2.94 (0.86-1.15)
[2021-02-28 07:55] LABS: Calcium 7.6 mg/dL (8.6-10.3); EGFR African American 131.3 (>60); EGFR Non-African American 108.5 (>60); Potassium 4.1 mmol/L (3.5-5.0)
[2021-02-28] MEDS: Cholecalciferol (VIT D3) 1,000 unit TAB PO SCH (09:34)
[2021-02-28] MEDS: Nitrofurantoin (monohydrate/macrocrystals) 100 mg CAP PO SCH (09:34)
[2021-02-28] MEDS: Nystatin TOP POWDER 15 GM BTL TOPICAL SCH (09:34)
[2021-02-28 11:51] VITALS: BP 131/65
== END 2021-02-28 13:40 | DRG 300 ==
LOC: ED 16:37 → MED 20:16 → SUATTDRO 20:16 → MED 23:00
PROVIDERS: ADMIT Student in an Organized Health Care Education/Training Program; ATTEND Hospitalist

== ENCOUNTER 2021-04-19 10:20 | Inpatient (IN) ==
[2021-04-19] MEDS ORDERED: NS 0.9% 1000 ml BAG 1,000 ML IV ONE (10:34)
[2021-04-19 11:13] LABS: PCO2 Arterial 42 mmHg (35-45); PO2 Arterial 101 mmHg (80-100)
[2021-04-19] MEDS ORDERED: Vancomycin 1,000 MG in NS 0.9% 250 ml 250 ML IVPB ONE (13:19)
[2021-04-19 13:35] LABS: ABS Lymphocytes 0.5 10^3/ul (1.0-4.8); ABS Monocytes 0.6 10^3/ul (0-0.8); ABS Neutrophils 6.5 10^3/ul (1.5-7.7); Eosinophil % 0.1 %; Hematocrit 32 % (42-52); Hemoglobin 10.4 g/dL (14.0-18.0); Lymphocyte % 6.3 %; Mean Corpuscular HGB Conc 33 g/dL (31-36); Mean Corpuscular Hemoglobin 33 pg (27-31); Mean Corpuscular Volume 99 fL (80-94); Mean Platelet Volume 9.8 fL (7.4-10.4); Platelet Count 124 10^3/uL (150-450); Red Blood Count 3.21 10^6 /uL (4.18-5.48); Red Cell Distribution Width 16 % (10-15); White Blood Count 7.7 10^3/uL (3.5-10.8)
[2021-04-19 13:40] LABS: Activated Partial Thrombo Time 35.4 seconds (26.0-38.0); INR 2.85 (0.86-1.15)
[2021-04-19 13:49] LABS: ALT 8 U/L (7-52); AST 17 U/L (13-39); Albumin 1.9 g/dL (3.2-5.2); Albumin/Globulin Ratio 0.9 (1-3); Alkaline Phosphatase 78 U/L (35-149); Anion Gap 11 mmol/L (2-11); Blood Urea Nitrogen 13 mg/dL (6-24); CO2 Carbon Dioxide 24 mmol/L (22-32); Calcium 7.1 mg/dL (8.6-10.3); Chloride 109 mmol/L (101-111); Creatine Kinase 97 U/L (10-223); Globulin 2.1 g/dL (2-4); Potassium 3.6 mmol/L (3.5-5.0); Sodium 144 mmol/L (135-145)
[2021-04-19 14:12] LABS: Glucose 37 mg/dL (70-100); Troponin I 0.08 ng/mL (<0.03)
[2021-04-19] MEDS ORDERED: Dextrose 50% Syringe 50 ml 25 GM/50 ML SYRINGE IV PUSH ONE (14:13)
[2021-04-19] MEDS ORDERED: Magnesium Hydroxide LIQ 30 ML UDC PO PRN (15:07)
[2021-04-19] MEDS ORDERED: Iodixanol (CONTRAST) 320 MG/ML 100 ML SDV IV ONE (15:12)
[2021-04-19] MEDS ORDERED: Cefepime 2 GM in Dextrose 2 GM/50 ML BAG IV SCH (16:00)
[2021-04-19 16:02] LABS: Magnesium 1.1 mg/dL (1.9-2.7)
[2021-04-19] MEDS ORDERED: Vancomycin 1,000 MG BAG/ADDV ONE (16:02)
[2021-04-19] MEDS ORDERED: Magnesium Sulf 4 GM/100 ML IV 4,000 MG/100 ML BAG IVPB ONE ×2 (16:13→19:30)
[2021-04-19 18:32] LABS: Troponin I 0.08 ng/mL (<0.03)
[2021-04-19] MEDS: Cefepime 2 GM in Dextrose 2 GM/50 ML BAG IV SCH (19:31)
[2021-04-19 19:34] LABS: TSH Ultra Thyroid Stim Horm 2.41 mcIU/mL (0.34-5.60)
[2021-04-19 19:41] LABS: Urine Appearance Clear; Urine Bilirubin Negative (Negative); Urine Blood 2+ (Negative); Urine Color Yellow; Urine Glucose Negative (Negative); Urine Ketones Trace (Negative); Urine Nitrite Negative (Negative); Urine Protein Negative (Negative); Urine Specific Gravity 1.027 (1.002-1.030); Urine Urobilinogen Negative (Negative)
[2021-04-19 19:53] LABS: Prealbumin 7 mg/dL (18-38)
[2021-04-19] MEDS: Albuterol/Ipratropium NEB.SOL (2.5/0.5 MG) 3 ML NEB.SOLN INH SCH ×2 (20:01→20:02)
[2021-04-19 20:04] LABS: Urine Bacteria 1+ (Absent); Urine Red Blood Cell 3+(>10/hpf) (Absent); Urine Squamous Epithelial Cell Present (Absent); Urine White Blood Cell Trace(0-5/hpf) (Absent)
[2021-04-19 20:09] LABS: Rapid COVID-19 Molecular Undetected (Undetected)
[2021-04-19 22:40] LABS: Hematocrit 34 % (42-52); Hemoglobin 11.1 g/dL (14.0-18.0)
[2021-04-20 02:41] LABS: ABS Eosinophils 0.1 10^3/ul (0-0.6); ABS Lymphocytes 0.6 10^3/ul (1.0-4.8); ABS Monocytes 0.4 10^3/ul (0-0.8); ABS Neutrophils 7.4 10^3/ul (1.5-7.7); Eosinophil % 0.6 %; Hematocrit 33 % (42-52); Hemoglobin 10.7 g/dL (14.0-18.0); Lymphocyte % 6.7 %; Mean Corpuscular HGB Conc 33 g/dL (31-36); Mean Corpuscular Hemoglobin 32 pg (27-31); Mean Corpuscular Volume 98 fL (80-94); Platelet Count 136 10^3/uL (150-450); Red Blood Count 3.32 10^6 /uL (4.18-5.48); Red Cell Distribution Width 16 % (10-15); White Blood Count 8.5 10^3/uL (3.5-10.8)
[2021-04-20] MEDS ORDERED: Cefepime 2 GM in Dextrose 2 GM/50 ML BAG IV ONE (03:00)
[2021-04-20] MEDS: Albuterol/Ipratropium NEB.SOL (2.5/0.5 MG) 3 ML NEB.SOLN INH SCH ×4 (03:35→22:47)
[2021-04-20] MEDS ORDERED: Heparin DRIP 25,000 UNITS BAG 25,000 UNITS/500 ML BAG ONE (04:07)
[2021-04-20] MEDS ORDERED: Heparin 5000 UNITS/ML 1 mL VIAL ONE (04:07)
[2021-04-20] MEDS: Heparin DRIP 25,000 UNITS BAG 25,000 UNITS/500 ML BAG IV SCH ×2 (04:18→19:02)
[2021-04-20] MEDS: Heparin 5000 UNITS/ML 1 mL VIAL IV SCH (04:20)
[2021-04-20 06:33] LABS: ABS Eosinophils 0.1 10^3/ul (0-0.6); ABS Lymphocytes 0.6 10^3/ul (1.0-4.8); ABS Monocytes 0.4 10^3/ul (0-0.8); ABS Neutrophils 5.6 10^3/ul (1.5-7.7); Eosinophil % 0.8 %; Hematocrit 30 % (42-52); Hemoglobin 9.4 g/dL (14.0-18.0); Lymphocyte % 8.8 %; Mean Corpuscular HGB Conc 31 g/dL (31-36); Mean Corpuscular Hemoglobin 33 pg (27-31); Mean Corpuscular Volume 104 fL (80-94); Mean Platelet Volume 9.5 fL (7.4-10.4); Platelet Count 112 10^3/uL (150-450); Red Blood Count 2.89 10^6 /uL (4.18-5.48); Red Cell Distribution Width 17 % (10-15); White Blood Count 6.7 10^3/uL (3.5-10.8)
[2021-04-20 08:23] LABS: Calcium 7.4 mg/dL (8.6-10.3); Magnesium 1.8 mg/dL (1.9-2.7); Potassium 3.4 mmol/L (3.5-5.0)
[2021-04-20 08:26] LABS: INR 3.94 (0.86-1.15)
[2021-04-20] MEDS: Cefepime 2 GM in Dextrose 2 GM/50 ML BAG IV SCH (10:06)
[2021-04-20] MEDS: Cholecalciferol (VIT D3) 1,000 unit TAB PO SCH (10:08)
[2021-04-20] MEDS ORDERED: Magnesium Sulfate IV 1GM/100ML 1 GM/100 ML BAG IV ONE (12:32)
[2021-04-20] MEDS ORDERED: Potassium Chlor 20 meq TAB.ER PO ONE (12:32)
[2021-04-20] MEDS ORDERED: ceFAZolin 1 GM ADVAN 1 GM in NS 0.9% 50 ML 50 ML IVPB SCH (13:00)
[2021-04-20] MEDS: Cefepime 1 GM in Dextrose 1 GM/50 ML BAG IV SCH (21:55)
[2021-04-21] MEDS: Albuterol/Ipratropium NEB.SOL (2.5/0.5 MG) 3 ML NEB.SOLN INH SCH (04:40)
[2021-04-21 05:56] LABS: ABS Eosinophils 0.2 10^3/ul (0-0.6); ABS Lymphocytes 0.7 10^3/ul (1.0-4.8); ABS Monocytes 0.4 10^3/ul (0-0.8); ABS Neutrophils 3.4 10^3/ul (1.5-7.7); Eosinophil % 3.9 %; Hematocrit 32 % (42-52); Hemoglobin 10.6 g/dL (14.0-18.0); Lymphocyte % 15.5 %; Mean Corpuscular HGB Conc 33 g/dL (31-36); Mean Corpuscular Hemoglobin 32 pg (27-31); Mean Corpuscular Volume 97 fL (80-94); Mean Platelet Volume 9.2 fL (7.4-10.4); Platelet Count 137 10^3/uL (150-450); Red Blood Count 3.28 10^6 /uL (4.18-5.48); Red Cell Distribution Width 16 % (10-15); White Blood Count 4.8 10^3/uL (3.5-10.8)
[2021-04-21 06:09] LABS: Calcium 7.6 mg/dL (8.6-10.3); Magnesium 1.8 mg/dL (1.9-2.7); Phosphorus 2.6 mg/dL (2.5-5.0); Potassium 3.8 mmol/L (3.5-5.0)
[2021-04-21] MEDS: Heparin 5000 UNITS/ML 1 mL VIAL IV SCH (06:30)
[2021-04-21] MEDS ORDERED: Enoxaparin 60 MG/0.6 ML SYR SUBCUT SCH (09:00)
[2021-04-21] MEDS: Cholecalciferol (VIT D3) 1,000 unit TAB PO SCH (09:02)
[2021-04-21] MEDS ORDERED: Albuterol/Ipratropium NEB.SOL (2.5/0.5 MG) 3 ML NEB.SOLN INH PRN (09:37)
[2021-04-21] MEDS: Cefepime 1 GM in Dextrose 1 GM/50 ML BAG IV SCH (10:27)
[2021-04-21] MEDS ORDERED: Haloperidol 5 mg/ml SDV IV/IM 5 MG/ML AMP IM ONE (21:50)
[2021-04-21] MEDS ORDERED: Haloperidol 5 mg/ml SDV IV/IM 5 MG/ML AMP ONE (21:52)
[2021-04-21] MEDS ORDERED: Dextrose 50% Syringe 50 ml 25 GM/50 ML SYRINGE ONE (23:12)
[2021-04-21] MEDS: Dextrose 50% Syringe 50 ml 25 GM/50 ML SYRINGE IV PUSH PRN (23:19)
[2021-04-21] MEDS ORDERED: Albuterol/Ipratropium NEB.SOL (2.5/0.5 MG) 3 ML NEB.SOLN INH ONE (23:23)
[2021-04-22 00:33] LABS: PCO2 Arterial 38 mmHg (35-45); PO2 Arterial 95 mmHg (80-100)
[2021-04-22] MEDS ORDERED: LORazepam 2 mg VIAL 1 ml IV PUSH ONE (00:41)
[2021-04-22] MEDS ORDERED: Lorazepam PYXIS KEY PRN (00:41)
[2021-04-22] MEDS: Enoxaparin 80 MG/0.8 ML SYR SUBCUT SCH ×3 (01:28→20:39)
[2021-04-22] MEDS: Cefepime 1 GM in Dextrose 1 GM/50 ML BAG IV SCH ×3 (01:46→23:29)
[2021-04-22 06:13] LABS: ABS Eosinophils 0.1 10^3/ul (0-0.6); ABS Lymphocytes 0.6 10^3/ul (1.0-4.8); ABS Monocytes 0.4 10^3/ul (0-0.8); ABS Neutrophils 2.2 10^3/ul (1.5-7.7); Corrected Retic Count 0.8 % (0.5-1.5); Eosinophil % 2.7 %; Hematocrit 31 % (42-52); Hematocrit for Retic CNT 31 % (42-52); Hemoglobin 10.3 g/dL (14.0-18.0); Immature Retic Fraction 0.46; Lymphocyte % 18.6 %; Mean Corpuscular HGB Conc 33 g/dL (31-36); Mean Corpuscular Hemoglobin 32 pg (27-31); Mean Corpuscular Volume 97 fL (80-94); Mean Platelet Volume 9.6 fL (7.4-10.4); Nucleated Red Blood Cells % 0.2; Platelet Count 136 10^3/uL (150-450); RBC Retic Count 3.23 10^6/uL (4.18-5.48); Red Blood Count 3.23 10^6 /uL (4.18-5.48); Red Cell Distribution Width 15 % (10-15); White Blood Count 3.4 10^3/uL (3.5-10.8)
[2021-04-22 06:33] LABS: Anion Gap 8 mmol/L (2-11); Blood Urea Nitrogen 15 mg/dL (6-24); CO2 Carbon Dioxide 26 mmol/L (22-32); Calcium 7.7 mg/dL (8.6-10.3); Chloride 109 mmol/L (101-111); Glucose 77 mg/dL (70-100); Magnesium 1.7 mg/dL (1.9-2.7); Potassium 3.8 mmol/L (3.5-5.0); Sodium 143 mmol/L (135-145)
[2021-04-22 06:52] LABS: % Iron Saturation 59 % (15-55); Iron 62 ug/dL (50-212); Total Iron Binding Capacity 105 mcg/dL (250-450); Transferrin < 75 mg/dL (203-362); Unsaturated Iron Binding < 90 ug/dL
[2021-04-22 08:46] LABS: Ferritin 466.9 ng/mL (24-336)
[2021-04-22 08:49] LABS: Folate 4.32 ng/mL (5.90-24.80)
[2021-04-22 08:50] LABS: Vitamin B12 1386 pg/mL (180-914)
[2021-04-22] MEDS ORDERED: LORazepam 2 mg VIAL 1 ml IV PUSH PRN (10:55)
[2021-04-22] MEDS ORDERED: LORazepam 2 mg VIAL 1 ml ONE (11:01)
[2021-04-22] MEDS: Cholecalciferol (VIT D3) 1,000 unit TAB PO SCH (11:57)
[2021-04-22] MEDS ORDERED: Perflutren Lipid Microsphere 3 ML VIAL ONE (12:53)
[2021-04-22] MEDS ORDERED: Magnesium Sulfate 2 gm BAG 2 GM/50 ML BAG IVPB ONE (13:54)
[2021-04-23 05:45] LABS: Hematocrit 32 % (42-52); Hemoglobin 10.7 g/dL (14.0-18.0); Mean Corpuscular HGB Conc 34 g/dL (31-36); Mean Corpuscular Hemoglobin 33 pg (27-31); Mean Corpuscular Volume 98 fL (80-94); Mean Platelet Volume 9.7 fL (7.4-10.4); Platelet Count 140 10^3/uL (150-450); Red Blood Count 3.24 10^6 /uL (4.18-5.48); Red Cell Distribution Width 16 % (10-15); White Blood Count 4.4 10^3/uL (3.5-10.8)
[2021-04-23 05:55] LABS: Albumin 1.9 g/dL (3.2-5.2); Calcium 7.9 mg/dL (8.6-10.3); Magnesium 2.1 mg/dL (1.9-2.7); Potassium 4.1 mmol/L (3.5-5.0); Total Bilirubin 0.4 mg/dL (0.2-1.0)
[2021-04-23 06:01] LABS: Albumin/Globulin Ratio 0.9 (1-3); Globulin 2.1 g/dL (2-4)
[2021-04-23 06:10] LABS: ABS Eosinophils 0.3 10^3/ul (0-0.6); ABS Lymphocytes 0.9 10^3/ul (1.0-4.8); ABS Monocytes 0.5 10^3/ul (0-0.8); ABS Neutrophils 2.6 10^3/ul (1.5-7.7); Eosinophil % 6.5 %; Lymphocyte % 20.3 %; Nucleated Red Blood Cells % 0.1
[2021-04-23] MEDS: Enoxaparin 80 MG/0.8 ML SYR SUBCUT SCH ×2 (11:52→23:31)
[2021-04-23] MEDS: Dextrose 50% Syringe 50 ml 25 GM/50 ML SYRINGE IV PUSH PRN ×2 (12:10→19:58)
[2021-04-23 12:33] LABS: PCO2 Arterial 48 mmHg (35-45); PO2 Arterial 63 mmHg (80-100)
[2021-04-23] MEDS: Cholecalciferol (VIT D3) 1,000 unit TAB PO SCH (12:42)
[2021-04-23] MEDS: Cefepime 1 GM in Dextrose 1 GM/50 ML BAG IV SCH ×2 (13:06→13:10)
[2021-04-24] MEDS: Cefepime 1 GM in Dextrose 1 GM/50 ML BAG IV SCH ×2 (01:24→14:41)
[2021-04-24] MEDS: Acetaminophen IV 1 GM/100ML 100 ML IV PRN ×2 (02:14→13:59)
[2021-04-24 05:27] LABS: ABS Eosinophils 0.2 10^3/ul (0-0.6); ABS Lymphocytes 0.9 10^3/ul (1.0-4.8); ABS Monocytes 0.6 10^3/ul (0-0.8); ABS Neutrophils 2.1 10^3/ul (1.5-7.7); Eosinophil % 5.5 %; Hematocrit 32 % (42-52); Hemoglobin 10.5 g/dL (14.0-18.0); Lymphocyte % 24.2 %; Mean Corpuscular HGB Conc 33 g/dL (31-36); Mean Corpuscular Hemoglobin 32 pg (27-31); Mean Corpuscular Volume 97 fL (80-94); Mean Platelet Volume 9.5 fL (7.4-10.4); Nucleated Red Blood Cells % 0.1; Platelet Count 164 10^3/uL (150-450); Red Blood Count 3.27 10^6 /uL (4.18-5.48); Red Cell Distribution Width 15 % (10-15); White Blood Count 3.8 10^3/uL (3.5-10.8)
[2021-04-24 05:44] LABS: Albumin 1.9 g/dL (3.2-5.2); Albumin/Globulin Ratio 0.8 (1-3); Globulin 2.3 g/dL (2-4); Magnesium 1.8 mg/dL (1.9-2.7); Potassium 3.8 mmol/L (3.5-5.0); Total Bilirubin 0.4 mg/dL (0.2-1.0); Total Protein 4.2 g/dL (6.4-8.9)
[2021-04-24 05:54] LABS: PSA Screening Total 2.121 ng/mL (0-4.000)
[2021-04-24] MEDS ORDERED: Magnesium Sulfate 2 gm BAG 2 GM/50 ML BAG IVPB ONE (07:41)
[2021-04-24] MEDS ORDERED: Haloperidol 5 mg/ml SDV IV/IM 5 MG/ML AMP IV SLOW PU ONE (08:42)
[2021-04-24] MEDS ORDERED: Haloperidol 5 mg/ml SDV IV/IM 5 MG/ML AMP ONE (08:43)
[2021-04-24] MEDS: Cholecalciferol (VIT D3) 1,000 unit TAB PO SCH (09:30)
[2021-04-24] MEDS: Enoxaparin 80 MG/0.8 ML SYR SUBCUT SCH ×2 (10:09→22:46)
[2021-04-24] MEDS ORDERED: Haloperidol 5 mg/ml SDV IV/IM 5 MG/ML AMP IV SLOW PU PRN (14:09)
[2021-04-24] MEDS ORDERED: Morphine 2 MG/ML SYRINGE IV ONE (14:24)
[2021-04-24] MEDS ORDERED: Morphine 2 MG/ML SYRINGE ONE (14:26)
[2021-04-24] MEDS: D5LR 1000 ml BAG 1,000 ML IV SCH (15:27)
[2021-04-24] MEDS: Pantoprazole VIAL 40 MG VIAL IV SCH (23:16)
[2021-04-25] MEDS: Cefepime 1 GM in Dextrose 1 GM/50 ML BAG IV SCH ×2 (02:00→13:40)
[2021-04-25] MEDS: Acetaminophen IV 1 GM/100ML 100 ML IV PRN (02:56)
[2021-04-25] MEDS: D5LR 1000 ml BAG 1,000 ML IV SCH (04:52)
[2021-04-25] MEDS ORDERED: Morphine 2 MG/ML SYRINGE IV ONE (04:59)
[2021-04-25 05:00] LABS: ABS Eosinophils 0.2 10^3/ul (0-0.6); ABS Lymphocytes 1.1 10^3/ul (1.0-4.8); ABS Monocytes 0.6 10^3/ul (0-0.8); ABS Neutrophils 3.4 10^3/ul (1.5-7.7); Eosinophil % 3.2 %; Hematocrit 30 % (42-52); Lymphocyte % 20.2 %; Mean Corpuscular HGB Conc 34 g/dL (31-36); Mean Corpuscular Hemoglobin 33 pg (27-31); Mean Corpuscular Volume 97 fL (80-94); Nucleated Red Blood Cells % 0.1; Platelet Count 179 10^3/uL (150-450); Red Blood Count 3.07 10^6 /uL (4.18-5.48); Red Cell Distribution Width 15 % (10-15); White Blood Count 5.2 10^3/uL (3.5-10.8)
[2021-04-25 05:21] LABS: Calcium 8.1 mg/dL (8.6-10.3); Magnesium 2.1 mg/dL (1.9-2.7); Potassium 3.6 mmol/L (3.5-5.0)
[2021-04-25] MEDS: Pantoprazole VIAL 40 MG VIAL IV SCH (07:58)
[2021-04-25] MEDS: Enoxaparin 80 MG/0.8 ML SYR SUBCUT SCH ×2 (07:58→21:57)
[2021-04-25] MEDS: KCL 10 MEQ/50 ML IVPREMIX 10 MEQ/50 ML BAG IV SCH ×3 (08:34→12:13)
[2021-04-25] MEDS: Cholecalciferol (VIT D3) 1,000 unit TAB PO SCH (08:35)
[2021-04-25 15:31] LABS: Albumin 1.7 g/dL (3.4-4.7); Albumin/Globulin Ratio 0.77; Gamma Globulin 0.9 g/dL (0.6-1.6)
[2021-04-25] MEDS ORDERED: Morphine 2 MG/ML SYRINGE ONE (17:43)
[2021-04-25] MEDS: Morphine 2 MG/ML SYRINGE IV PRN ×2 (17:46→19:37)
[2021-04-26] MEDS: Morphine 2 MG/ML SYRINGE IV PRN ×5 (03:28→22:09)
[2021-04-26] MEDS: Enoxaparin 80 MG/0.8 ML SYR SUBCUT SCH (10:43)
[2021-04-26] MEDS ORDERED: Lorazepam PYXIS KEY PRN (11:16)
[2021-04-26] MEDS ORDERED: LORazepam 2 mg VIAL 1 ml IV PUSH PRN (11:16)
[2021-04-26] MEDS ORDERED: Lorazepam PYXIS KEY ONE (11:19)
[2021-04-26] MEDS ORDERED: LORazepam 2 mg VIAL 1 ml ONE (11:20)
[2021-04-26] MEDS: LORazepam 2 mg VIAL 1 ml IV PUSH PRN (15:10)
[2021-04-27] MEDS: Morphine 2 MG/ML SYRINGE IV PRN ×5 (01:58→22:09)
[2021-04-27] MEDS: LORazepam 2 mg VIAL 1 ml IV PUSH PRN ×3 (01:58→22:10)
[2021-04-27 12:36] LABS: IGF1 Z-score <-3.00 SD
[2021-04-28] MEDS: Morphine 2 MG/ML SYRINGE IV PRN ×8 (01:49→21:37)
[2021-04-28] MEDS: LORazepam 2 mg VIAL 1 ml IV PUSH PRN ×2 (01:50→05:56)
[2021-04-28] MEDS: Atropine 1% (ORAL/SL) 15 ML BTL SL PRN ×2 (15:20→17:20)
[2021-04-28 23:15] VITALS: BP 83/38
[2021-04-29] MEDS: LORazepam 2 mg VIAL 1 ml IV PUSH PRN (04:26)
[2021-04-29] MEDS: Morphine 2 MG/ML SYRINGE IV PRN ×5 (04:27→20:43)
[2021-04-29] MEDS: Atropine 1% (ORAL/SL) 15 ML BTL SL PRN (20:45)
== END 2021-04-29 21:15 | disposition expired | DRG 175 ==
LOC: ED 10:20 → SUATTDRO 04-20 02:09 → EDHOLD 04-20 02:09 → MED 04-20 16:33 → ICU 04-23 12:26 → MEDTELE 04-26 20:20
PROVIDERS: ADMIT Internal Medicine; ATTEND Internal Medicine